=== PATIENT | female | born 1990 | race Caucasian/White ===

== ENCOUNTER 2017-05-28 09:32 | Inpatient (IN) | payer OTHER ==
[2017-05-28] MEDS ORDERED: Ringers Lactate 1,000 ML IV PRN (11:04)
[2017-05-28] MEDS ORDERED: NA CIT/CITRIC AC 30 ML ORAL UDC PO ONE (11:06)
[2017-05-28 11:35] VITALS: BMI 37.3
[2017-05-28 11:39] LABS: RPR Titer ND
[2017-05-28 11:41] LABS: Urine Appearance CLEAR; Urine Bilirubin NEGATIVE (NEG); Urine Blood NEGATIVE (NEG); Urine Color YELLOW; Urine Glucose NEGATIVE (NEG); Urine Protein NEGATIVE (NEG); Urine Specific Gravity 1.015 (1.005-1.030)
[2017-05-28 11:49] LABS: Absolute Lymphocytes (CBC) 1.8 K/uL (0.7-4.9); Absolute Monocytes 0.4 K/uL (0.1-1.3); Absolute Neutrophil 5.4 K/uL (1.8-8.0); Basophils % 0.6 % (0-1.3); Eosinophils % 0.9 % (0-4.4); Hematocrit 37.5 % (36.0-45.0); Lymphocytes % 22.8 % (15.3-44.8); MCH 28.7 pg (27.0-35.0); MCV 84.7 fL (80-100); Monocytes % 5.3 % (3.3-12.3); RBC Red Blood Cell Count 4.42 M/uL (3.86-4.86); Urine Microscopic Reflex ORDER UMIC
[2017-05-28] MEDS ORDERED: CEFAZOLIN 2 GM in NA CHLORIDE 0.9% 100 ML IVPB SCH (12:00)
[2017-05-28] MEDS ORDERED: Ringers Lactate 1,000 ML IV SCH (12:00)
[2017-05-28] MEDS ORDERED: METOCLOPRAMIDE 10 MG/2mL INJ IV SCH (12:00)
[2017-05-28] MEDS ORDERED: FAMOTIDINE 20 MG/2 ML VIAL IV SCH (12:00)
[2017-05-28 12:31] LABS: Urine Bacteria <20 /HPF (<20); Urine Culture Reflex Order NOT NEEDED; Urine Mucus SLIGHT /HPF (NONE SEEN); Urine RBC <5 /HPF (NONE SEEN)
[2017-05-28] MEDS ORDERED: CEFAZOLIN/SWI 2gm 2 GM/20 ML SYR ONE (13:11)
[2017-05-28] MEDS ORDERED: METHYLERGONOVINE 0.2MG/ML AMP IM ONE (13:11)
[2017-05-28] MEDS ORDERED: CARBOPROST TROME 250 MCG/ML IM ONE (13:11)
[2017-05-28] MEDS ORDERED: OXYTOCIN 10 UNIT/ML ML IV ONE ×2 (13:16→14:05)
[2017-05-28] MEDS ORDERED: MORPHINE SULFATE/PF 1 MG/ML (10 ML AMP) ONE (13:16)
[2017-05-28] MEDS ORDERED: EPHEDRINE SULF 50 MG/5 ML SYR ONE (13:33)
[2017-05-28] MEDS ORDERED: DIPHENHYDRAMINE 50 MG/ML VIAL IV PRN ×2 (14:48→16:37)
[2017-05-28] MEDS ORDERED: ONDANSETRON 4 MG/2 ML VIAL IV PRN ×2 (14:49→14:57)
[2017-05-28] MEDS ORDERED: ONDANSETRON 4 MG (ODT) TAB PO PRN (14:57)
[2017-05-28] MEDS ORDERED: ACETAMINOPHEN 500 MG TAB PO PRN (14:57)
[2017-05-28] MEDS ORDERED: DIPHENHYDRAMINE 25 MG TAB/CAP PO PRN (14:57)
[2017-05-28] MEDS ORDERED: Oxycodone HCl/Acetaminophen 1 TAB TAB PO PRN ×2 (14:57)
[2017-05-28] MEDS ORDERED: BISACODYL 10 MG RECTAL SUPP RECT PRN (14:57)
[2017-05-28] MEDS ORDERED: KETOROLAC 30 MG/ML INJ IM PRN (14:57)
[2017-05-28] MEDS ORDERED: OXYTOCIN/LR 20 UNIT/1,000 ML BAG IV SCH (15:00)
[2017-05-28] MEDS ORDERED: D5LR 1,000 ML with OXYTOCIN 20 UNIT IV SCH ×2 (15:00)
--- NOTE | 2017-05-28 16:12 | PREOPHP ---
Date of Admission: 05/28/2017 A 26-year-old 3, para 1, 38 weeks and 5 days. Scheduled for repeat on Sunday-48 hours or less from now, came in with contractions every 3-6 minutes. Cervix has changed from 1.5 to 2 cm. Baby looks good. Preparations are being made to proceed with a at this time since s he appears to be in early labor. We have already gone over with the patient numerous times about pro cedure, infection, blood loss, anesthetic complications, injury to bladder, bowel, ureter, postoperat adam complications, clots in legs, pneumonia. The patient knows fully well that this does not [place] all the possible problems that could occur during or following surgery. Paternal grandfather wit h hypertension and cancer, site unknown. Diabetes in the same grandfather. The patient has had surg alena with her arm, in 2013, gallbladder surgery in 2013. She was a smoker and says she has quit during her . Physical Examination: Unremarkable. Heart and lungs: Basically clear. Breasts: Not examined. Abdomen: Soft, but regan. Extremities: Clear. Pelvic: As stated, 2 cm. We will proceed with section during the next hour and a half to 2 hours. KOURTNEY/MERA Voice ID: [id number]
[2017-05-28] MEDS ORDERED: Ringers Lactate 1,000 ML IV ONE (16:22)
[2017-05-28] MEDS ORDERED: DIPHENHYDRAMINE 50 MG/ML VIAL ONE (16:22)
[2017-05-28] MEDS ORDERED: CEFAZOLIN/SWI 2gm 2 GM/20 ML SYR IVP ONE (22:00)
[2017-05-28] MEDS: KETOROLAC 30 MG/ML INJ IV PRN (23:10)
[2017-05-29] MEDS: KETOROLAC 30 MG/ML INJ IV PRN (08:38)
[2017-05-29] MEDS ORDERED: MAGNESIUM HYDROXIDE 8% 30 ML PO PRN (14:57)
[2017-05-29] MEDS: IBUPROFEN 400 MG TAB PO PRN (20:46)
[2017-05-29 23:07] LABS: RPR (Rapid Plasma Reagin) NON-REACT (NON-REACT)
[2017-05-30 02:09] LABS: HBsAG Nonreactive (Nonreactive)
[2017-05-30] MEDS: IBUPROFEN 400 MG TAB PO PRN (04:53)
[2017-05-30] MEDS ORDERED: MEASLES,MUMPS,RUBELLA VAC 0.5ML SQVAC ONE (08:37)
[2017-05-30 09:19] VITALS: BP 121/81; TEMP 96.6
--- NOTE | 2017-05-31 05:47 | DS ---
Date of Discharge: 05/30/2017 A 26-year-old, 3, para 1, AB1, 38 weeks 5 days, scheduled for section came in early labor. Subsequently went to surgery, repeat section under spinal block anesthesia with marilee hernandez of an estimated 7- to 8-pound female. Outlet forceps used for delivery. Apgars 8 and 9. Signi ficant bleeding from the left side of the uterine incision. This was sutured with numerous figure-of -eight stitches during the procedure. Estimated total blood loss was 1500 cc. However, postoperativ e hematocrit only went from 37-33, so it was probably less than the amount estimated. Postoperativel y, afebrile, ambulating and voiding. Lochia is normal, will be dismissed later today to report back to my office next week for staple removal, to report any temperature elevation of [address], severe pain, heavy bleeding, or any other type of abnormalities. Dismissed with tramadol for an algesia, although if she prefer she will take Motrin since she knows narcotics go through the breast milk. She is rubella nonimmune and is offered rubella immunization. No post spinal block problems. Final Diagnoses: Term intrauterine 38 weeks 5 days, repeat section in labor, now dismissed. KOURTNEY/MERA Voice ID: [id number] Report ID: [id number]
--- NOTE | 2017-06-04 17:49 | OP ---
Surgeon: Mark Jensen MD A 26-year-old 3, para 1, AB1, 38 weeks 5 days, came in labor, taken to surgery, spinal block anesthesia. Time-out was performed. Prepping and draping in the usual sterile manner. Incision was made over the previous incision site carried to fascia. The fascia was incised. Incision was rupert ed transversely bilaterally. Anterior fascial plane was developed with both blunt and sharp dissecti on. The underlying rectus muscle was . The perineum was elevated and entered. Low transve rse uterine incision was created. A low outlet forceps was used to deliver 7.5 pound estimated weigh t female Apgars 8 and 9. Noted to have arterial bleeding from the left side of the incision. This w as sutured with 4-5 [id number] stitches with 1 chromic. The incision was closed in the routine running locked manner with 1 chromic. Estimated blood loss 1500 cc. The uterus was replaced into th e peritoneal cavity. Gutters cleared of clot and blood. No further bleeding was seen. Fascia was c losed with 1 Vicryl after the muscles had been reapproximated with 0 Vicryl. The subcutaneous tissue s were closed with 2-0 plain absorbable peter and then metal peter. The patient had been given 2 g of Ancef. Tolerated all procedures well. She was transferred back to her room in good condition. Final Diagnoses: Intrauterine gestation, 38 weeks 5 days, repeat section in labor. KOURTNEY/MERA Voice ID: [id number] Report ID: [id number]
== END 2017-05-30 08:50 | disposition home or self-care (01) | DRG 766 ==
LOC: L&D 09:32 → 2ND-WC 11:12
PROVIDERS: ADMIT Specialist; ATTEND Specialist
PROC: 10D00Z1 Extraction of Products of Conception, Low, Open Approach (ICD-10-PCS; principal; 2017-05-28 13:00)
DX: O34.211 Maternal care for low transverse scar from previous cesarean delivery (principal); Z3A.38 38 weeks gestation of pregnancy; Z37.0 Single live birth
CPT/HCPCS: 36415; 81003; 81015; 85014; 85025; 85730; 86592; 86900; 86901; 87340; 88305; 88307; 90707; 99218; J0690; J2210; J2405; J2590; J2765

== ENCOUNTER 2018-12-01 18:21 | Emergency (ER) | payer OTHER ==
--- NOTE | 2018-12-01 19:28 | ER ---
Nurse's Notes [facility] Name: Kyra Dave Age: 28 yrs Sex: Female : 1990 Arrival Date: 12/01/2018 Time: 18:24 Bed 23 Private MD: Diagnosis: Acute pharyngitis Presentation: 12/01 18:26 Presenting complaint: Patient states: Fever, chills, sore throat, and body aches since aj1 yesterday. TMax 104. Patient reports that she took Tylenol 1 hour ago. Denies N/V/D. Transition of care: patient was not received from another setting of care. Onset of symptoms was November 30, 2018. Risk Assessment: Do you want to hurt yourself or someone else? Patient reports no desire to harm self or others. Initial Sepsis Screen: Does the patient meet any 2 criteria? No. Patient's initial sepsis screen is negative. Does the patient have a suspected source of infection? Yes: Other: fever. Care prior to arrival: None. 18:26 Method Of Arrival: Ambulatory aj 18:26 Acuity: BISMARK 4 aj1 Triage Assessment: 18:28 General: Appears in no apparent distress. uncomfortable, Behavior is calm, cooperative, aj1 appropriate for age. Pain: Pain currently is 7 out of 10 on a pain scale. EENT: Reports difficulty swallowing sore throat, ear pain. Neuro: Level of Consciousness is awake, alert, obeys commands. Cardiovascular: Patient's skin is warm and dry. Respiratory: Airway is patent Respiratory effort is even, unlabored, Respiratory pattern is regular, symmetrical. 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 - Social history:: Smoking status: Patient uses tobacco products, smokes one-half pack cigarettes per day. - Ebola Screening: : Patient denies travel to an Ebola-affected area in the 21 days before illness onset. Screenin:45 Abuse screen: Denies threats or abuse. Nutritional screening: No deficits noted. tr5 Tuberculosis screening: No symptoms or risk factors identified. Fall Risk None identified. Assessment: 18:45 General: Appears in no apparent distress. Behavior is calm, cooperative, appropriate tr5 for age. Pain: Complains of pain in mouth. Neuro: Level of Consciousness is awake, alert, obeys commands, Oriented to person, place, time, Extension Educator are equal bilaterally Moves all extremities. Cardiovascular: Heart tones present. Respiratory: Airway is patent Respiratory effort is even, unlabored, Respiratory pattern is regular, symmetrical, Breath sounds are clear. GI: No signs and/or symptoms were reported involving the gastrointestinal system. : No signs and/or symptoms were reported regarding the genitourinary system. EENT: Throat is reddened. Derm: No signs and/or symptoms reported regarding the dermatologic system. Musculoskeletal: No signs and/or symptoms reported regarding the musculoskeletal system. Vital Signs: 18:28 BP 123 / 74; Pulse 98; Resp 18; Temp 98.9; Pulse Ox 100% on R/A; Weight 104.33 kg (R); aj1 Height 5 ft. 7 in. (170.18 cm) (R); 18:28 Body Mass Index 36.02 (104.33 kg, 170.18 cm) aj1 ED Course: 18:24 Patient arrived in ED. mr 18:25 Aleida Diaz FNP-C is [facility]. kb 18:25 Masoud Lee MD is Attending Physician. kb 18:27 Triage completed. aj1 18:28 Arm band placed on Patient placed in an exam room. aj1 18:44 Lazarus Lindquist RN is Primary Nurse. tr5 18:45 Call light in reach. Side rails up X 1. tr5 19:59 No provider procedures requiring assistance completed. Patient did not have IV access tr5 during this emergency room visit. Administered Medications: No medications were administered Outcome: 19:28 Discharge ordered by . kb 19:59 Discharged to home ambulatory. tr5 19:59 Condition: stable 19:59 Discharge instructions given to patient, family, Instructed on discharge instructions, follow up and referral plans. medication usage, Demonstrated understanding of instructions, follow-up care, medications. 20:00 Patient left the ED. tr5 Signatures: Aleida Diaz FNP-C FNP-Sonia Olson RN RN chitra IvanNargis moy Tommie, RN RN tr5
--- NOTE | 2018-12-01 19:28 | EDPHYS ---
Physician Documentation [facility] Name: Kyra Dave Age: 28 yrs Sex: Female : 1990 Arrival Date: 12/01/2018 Time: 18:24 Bed 23 Private MD: ED Physician Masoud Lee HPI: 12/01 19:24 This 28 yrs old Female presents to ER via Ambulatory with complaints of Sore kb Throat, Fever, Ear Pain. 19:24 The patient presents with sore throat. The patient describes throat pain as constant. kb Onset: The symptoms/episode began/occurred yesterday. Severity of symptoms: At their worst the symptoms were mild, moderate, in the emergency department the symptoms are unchanged. Modifying factors: The symptoms are alleviated by nothing, the symptoms are aggravated by swallowing, Patient's oral intake status: limited fluid intake, limited food intake, Denies contact with similarly ill indivduals. Associated signs and symptoms: Pertinent positives: chills, earache, fever, flu-like symptoms, Sore throat. The patient has not experienced similar symptoms in the past. The patient has not recently seen a physician. 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 - Social history:: Smoking status: Patient uses tobacco products, smokes one-half pack cigarettes per day. - Ebola Screening: : Patient denies travel to an Ebola-affected area in the 21 days before illness onset. ROS: 19:21 Neck: Negative for injury, pain, and swelling, Cardiovascular: Negative for chest pain, kb palpitations, and edema, Respiratory: Negative for shortness of breath, cough, wheezing, and pleuritic chest pain, Abdomen/GI: Negative for abdominal pain, nausea, vomiting, diarrhea, and constipation, Back: Negative for injury and pain, MS/Extremity: Negative for injury and deformity, Skin: Negative for injury, rash, and discoloration, Neuro: Negative for headache, weakness, numbness, tingling, and seizure. 19:21 Constitutional: Positive for body aches, chills, fatigue, fever, malaise. 19:21 ENT: Positive for sore throat. Exam: 19:23 Constitutional: This is a well developed, well nourished patient who is awake, alert, kb and in no acute distress. Head/Face: Normocephalic, atraumatic. Neck: Trachea midline, no thyromegaly or masses palpated, and no cervical lymphadenopathy. Supple, full range of motion without nuchal rigidity, or vertebral point tenderness. No Meningismus. Chest/axilla: Normal chest wall appearance and motion. Nontender with no deformity. No lesions are appreciated. Cardiovascular: Regular rate and rhythm with a normal S1 and S2. No gallops, murmurs, or rubs. Normal PMI, no JVD. No pulse deficits. Respiratory: Lungs have equal breath sounds bilaterally, clear to auscultation and percussion. No rales, rhonchi or wheezes noted. No increased work of breathing, no retractions or nasal flaring. Abdomen/GI: Soft, non-tender, with normal bowel sounds. No distension or tympany. No guarding or rebound. No evidence of tenderness throughout. Back: No spinal tenderness. No costovertebral tenderness. Full range of motion. Skin: Warm, dry with normal turgor. Normal color with no rashes, no lesions, and no evidence of cellulitis. MS/ Extremity: Pulses equal, no cyanosis. Neurovascular intact. Full, normal range of motion. Neuro: Awake and alert, GCS 15, oriented to person, place, time, and situation. Cranial nerves II-XII grossly intact. Motor strength 5/5 in all extremities. Sensory grossly intact. Cerebellar exam normal. Normal gait. 19:23 ENT: External ear(s): are unremarkable, Ear canal(s): are normal, TM's: are normal, Nose: is normal, Mouth: is normal, Posterior pharynx: Airway: normal, no evidence of obstruction, Tonsils: bilaterally enlarged, with erythema, with exudate, Uvula: normal, midline, swelling, that is moderate, erythema, that is mild, exudate, that is moderate. Vital Signs: 18:28 BP 123 / 74; Pulse 98; Resp 18; Temp 98.9; Pulse Ox 100% on R/A; Weight 104.33 kg (R); aj1 Height 5 ft. 7 in. (170.18 cm) (R); 18:28 Body Mass Index 36.02 (104.33 kg, 170.18 cm) aj1 MDM: 18:33 Patient medically screened. kb 19:20 Data reviewed: vital signs, nurses notes. Data interpreted: Pulse oximetry: on room air kb is 100 %. Interpretation: normal. Counseling: I had a detailed discussion with the patient and/or guardian regarding: the historical points, exam findings, and any diagnostic results supporting the discharge/admit diagnosis, lab results, the need for outpatient follow up, a family practitioner, to return to the emergency department if symptoms worsen or persist or if there are any questions or concerns that arise at home. ED course: Antibiotics prescribed based on exam findings . 12/01 18:26 Order name: Flu; Complete Time: 19:20 [facility] 12/01 18:26 Order name: Strep; Complete Time: 19:18 [facility] 12/01 19:14 Order name: Throat Culture EDMS Administered Medications: No medications were administered Disposition: 12/02 07:13 Co-signature as Attending Physician, Masoud Lee MD. rn Disposition: 12/01/18 19:28 Discharged to Home. Impression: Acute pharyngitis. - Condition is Stable. - Discharge Instructions: Pharyngitis, [id number], Sore Throat, [id number]. - Prescriptions for Augmentin 875- 125 mg Oral Tablet - take 1 tablet by ORAL route every 12 hours for 10 days; 20 tablet. - Medication Reconciliation Form, Thank You Letter, Antibiotic Education, Prescription Opioid Use form. - Follow up: Emergency Department; When: As needed; Reason: Worsening of condition. Follow up: Private Physician; When: 2 - 3 days; Reason: Recheck today's complaints, Continuance of care, Re-evaluation by your physician. Signatures: Dispatcher [employer] EDMS Aleida Diaz, ARIK RIDDLEP-Sonia Olson RN RN aj1 Masoud Lee MD MD rn Rodriguez, Tommie, RN RN tr5 Corrections: (The following items were deleted from the chart) 12/01 20:00 19:28 12/01/2018 19:28 Discharged to Home. Impression: Acute pharyngitis. Condition is tr5 Stable. Forms are Medication Reconciliation Form, Thank You Letter, Antibiotic Education, Prescription Opioid Use. Follow up: Emergency Department; When: As needed; Reason: Worsening of condition. Follow up: Private Physician; When: 2 - 3 days; Reason: Recheck today's complaints, Continuance of care, Re-evaluation by your physician. kb
[2018-12-01 20:04] VITALS: BP 123/74; TEMP 98.9; O2SAT 100
== END 2018-12-01 20:00 | disposition home or self-care (01) ==
LOC: ER 18:21
DX: J02.9 Acute pharyngitis, unspecified (principal); F17.210 Nicotine dependence, cigarettes, uncomplicated
CPT/HCPCS: 87070; 87081; 87804; 99281

== ENCOUNTER 2019-06-19 23:46 | Emergency (ER) | payer OTHER, SELFPAY ==
--- OUTSIDE RECORDS SUMMARY | 2019-06-19 23:48 | XMS REPORT ---
:1990 Author Organization [facility] t Address [address] [place] [address] Dr. Schwarz [address] [place] [id number] Care Team Providers Name Role Phone Unavailable Unavailable Unavailable Problems This patient has no known problems. Allergies, Adverse Reactions, Alerts This patient has no known allergies or adverse reactions. Medications This patient has no known medications. Procedures This patient has no known procedures. Results This patient has no known results.
[2019-06-20 00:59] LABS: Absolute Lymphocytes (CBC) 3.1 K/uL (0.7-4.9); Hematocrit 42.6 % (36.0-45.0); Lymphocytes % 35.1 % (15.3-44.8); RBC Red Blood Cell Count 5.17 M/uL (3.86-4.86)
[2019-06-20 01:00] LABS: Protime INR 0.93
[2019-06-20 02:02] LABS: BUN Blood Urea Nitrogen 9 mg/dL (7-18); Bicarbonate 23 mmol/L (21-32); Glucose Level 108 mg/dL (74-106); Potassium 3.8 mmol/L (3.5-5.1); Sodium Level 143 mmol/L (136-145)
[2019-06-20] MEDS ORDERED: TETANUS & DIPHTHERIA TOX,ADULT 0.5 ML VIAL ONE (02:12)
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
[2019-06-20 02:52] VITALS: TEMP 99
[2019-06-20 03:00] VITALS: BP 127/77; O2SAT 98
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
== END 2019-06-20 02:43 | disposition home or self-care (01) ==
LOC: ER 23:46
DX: Z04.71 Encounter for examination and observation following alleged adult physical abuse (principal); F17.210 Nicotine dependence, cigarettes, uncomplicated
CPT/HCPCS: 36415; 70450; 70486; 70491; 76377; 80048; 85025; 85610; 86850; 86900; 86901; 90471; 90714; 96360; 99284; Q9967

== ENCOUNTER 2019-08-14 13:56 | Emergency (ER) | payer SELFPAY ==
--- OUTSIDE RECORDS SUMMARY | 2019-08-14 15:46 | XMS REPORT | Summary of Care ---
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 [address] [facility] [id number] [place] [id number] Reason for Visit Reason Comments Ankle Pain Auth/Cert Status Reason Specialty Diagnoses / Referred By Referred To Procedures Contact Contact Emergency Medicine [facility] Em ergency Dept [address] [place] [address] Fax: Encounter Details Date Type Department Care Team Description 08/06/2019 Emergency ADC-Emergency Chica Cardenas G, Acute rig ht ankle pain (Primary Dx); 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 naproxen sodium Take 1 tablet 30 tablet 0 03/11/2018 08/06/19 Discontinued (ANAPROX DS) 550 mg by mouth 2 20 tabletIndications: (two) times Influenza-like daily with illness meals. chlorpheniramine 4 mg Take 1 tablet 30 tablet 0 03/11/201802/24 Discontinued tabletIndications: by mouth every 20 Influenza-like 6 (six) hours illness as needed for Allergies or Runny nose. [id number] As directed on 2 Bottle 0 03/11/2018 Discontinued -Guaifen (TYLENOL bottle. 20 COLD AND FLU SEVERE) Daytime and [id number] mg/15 mL nighttime LiqdIndications: combo pack Influenza-like illness ondansetron 4 mg Take 1 tablet 20 tablet 0 03/11/2018 08/06/19 Discontinued disintegrating by mouth every 20 tabletIndications: 8 (eight) Influenza-like hours as illness needed for Nausea and Vomiting (N/V). oxymetazoline (AFRIN, Use 1 [place] in 1 Bottle 0 03/11/2018 Discontinued OXYMETAZOLINE,) 0.05 each nostril 2 20 % nasal (two) times sprayIndications: daily. Influenza-like illness documented as of this encounter (statuses as of 08/06/2019) Active Problems No known active problemsdocumented as of this encounter (statuses as of 08/06/2019) Social History Tobacco Use Types Packs/Day Years Used Date Never Assessed Sex Assigned at Date Recorded Not on file Job Start Date Occupation Industry Not on file Not on file Not on file Travel History Travel Start Travel End No recent travel history available. COVID-19 Exposure Response Date Recorded In the last month, have you been in contact with No / Unsure 08/06/2019 8:42 PM CDT someone who was confirmed or suspected to have Coronavirus / COVID-19? documented as of this encounter Last Filed Vital Signs Vital Sign Reading Time Taken Comments Blood Pressure 139/66 08/06/2019 8:43 PM CDT Pulse 87 08/06/2019 8:43 PM CDT Temperature 36.6 C (97.8 F) 08/06/2019 8:43 PM CDT Respiratory Rate 18 08/06/2019 8:43 PM CDT Oxygen Saturation 99% 08/06/2019 8:43 PM CDT Inhaled Oxygen Concentration - - Weight 106.6 kg (235 lb) 08/06/2019 8:43 PM CDT Height 170.2 cm (5' 7") 08/06/2019 8:43 PM CDT Body Mass Index 36.81 08/06/2019 8:43 PM CDT documented in this encounter Discharge Instructions Chica Duran NP - 08/06/2019Diagnosis: Ankle sprain Prescription for Lodine sent to your [facility] pharmacy RICE Rest your ankle as much as possible Use ice / cold pack intermittently for the first 72 hours then may apply heat Use compression ( ortho boot) when weight bearing Elevate as much as possible Follow up with ortho as needed documented in this encounter Plan of Treatment Name Type Priority Associated Diagnoses Date/Ti me XR ANKLE 3+ VW RIGHT IMAGING STAT Acute right ankle pa in 08/06/2019 9:02 PM CDT Health Maintenance Due Date Last Done Comments VARICELLA VACCINES (1 of 2 - 10/28/1992 2-dose childhood series) DTaP,Tdap,and Td Vaccines (1 - 10/28/2002 Tdap) Depression Screening 2003 PAP SMEAR 10/28/2012 INFLUENZA VACCINE (#1) 2019 PNEUMOCOCCAL 0-64 YEARS COMBINED Aged Out No longer eligible based on SERIES patient's age to complete this topic documented as of this encounter Procedures Procedure Name Priority Date/Time Associated Diagnosis Comme nts XR ANKLE 3+ VW RIGHT STAT 08/06/2019 9:02 PM CDT Acute rig ht ankle pain Procedure Note - [facility], Radia nt Results Inft User - 08/06/2019 9:42 PM CDT EXAM: XR ANKLE 3+ VW RIGHT HISTORY: r/o fracture COMPARISON: None. FINDINGS: Radiographs of the right ank le demonstrate no acute fractures or dislocations. The ankle mort ise is intact. The soft tissues are unremarkable. IMPRESSION No acute bony abnormality. Preliminary Report Dictated by Resident: Katia Herrera NOTICE OF PRIVACY PRACTICES Routine 08/06/2019 8:36 PM CDT CONSENT/REFUSAL FOR DIAGNOSIS AND TREATMENT Routine 08/06/2019 8:36 PM CDT documented in this encounter Results Not on filedocumented in this encounter Visit Diagnoses Diagnosis Acute right ankle pain - Primary Sprain of right ankle, unspecified ligam ent, initial encounter documented in this encounter Insurance Payer Benefit Plan / Subscriber ID Effective Phone Address T ype Group Dates MEDICAID MEDICAID PENDING 2019-[address] [place] [address] (Work) documented as of this encounter
--- OUTSIDE RECORDS SUMMARY | 2019-08-14 15:46 | XMS REPORT | Continuity of Care Document ---
:1990 Author Organization [facility] t Address [address] [place] [address] Care Team Providers Name Role Phone Mary Cardenas NP Attending Clinician Problems This patient has no known problems. Allergies, Adverse Reactions, Alerts This patient has no known allergies or adverse reactions. Medications This patient has no known medications. Procedures This patient has no known procedures. Encounters Start End Encounter Admission Attending Care Care Encounter Source Date/Time Date/Time Type Type Clinicians Facility Department ID 2019-08-06 2019-08-06 Emergency Theresa, [facility] [id number] 20:47:02 22:28:00 Chica Unger [id number] [place] [id number] [place] [id number] 2019-06-21 2019-06-21 Emergency E [facility] [id number] [facility] 12:28:00 12:28:00 Results This patient has no known results.
--- NOTE | 2019-08-14 16:16 | ER ---
Nurse's Notes [facility] Name: Kyra Dave Age: 28 yrs Sex: Female : 1990 Arrival Date: 08/14/2019 Time: 14:00 Bed 11 Private MD: Margaret Wray K Diagnosis: Nondisplaced fracture of proximal phalanx of left great toe Presentation: 08/13 14:24 Chief complaint: Patient states: Slipped and fell getting out the shower last night. ca1 C/O of pain on L big toe and a little deformity on L big toe. Coronavirus screen: Proceed with normal triage. Patient denies a cough. Patient denies shortness of breath or difficulty breathing. Patient denies measured and/or subjective temperature greater than 100.4F prior to today's visit. Patient denies travel on a cruise ship or to a country the [facility] currently lists as an affected area. Patient denies contact with known and/or suspected case of COVID-19. Ebola Screen: Patient negative for fever greater than or equal to 101.5 degrees Fahrenheit, and additional compatible Ebola Virus Disease symptoms Patient denies exposure to infectious person. Patient denies travel to an Ebola-affected area in the 21 days before illness onset. No symptoms or risks identified at this time. Initial Sepsis Screen: Does the patient meet any 2 criteria? No. Patient's initial sepsis screen is negative. Does the patient have a suspected source of infection? No. Patient's initial sepsis screen is negative. Risk Assessment: Do you want to hurt yourself or someone else? Patient reports no desire to harm self or others. Onset of symptoms was August 14, 2019. 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 - Social history:: Smoking status: Patient reports the use of cigarette tobacco products, smokes one-half pack cigarettes per day. Screenin:44 Abuse screen: Denies threats or abuse. Denies injuries from another. Nutritional ss screening: No deficits noted. Tuberculosis screening: Never had TB. Fall Risk None identified. Assessment: 14:44 General: Appears in no apparent distress. comfortable, Behavior is calm, cooperative. ss Pain: Complains of pain in right first toe Pain currently is 8 out of 10 on a pain scale. Quality of pain is described as aching, tender, throbbing, Pain began last night Is continuous. Neuro: Level of Consciousness is awake, alert, obeys commands, Oriented to person, place, time, situation. Cardiovascular: Capillary refill < 3 seconds is brisk in bilateral fingers. Respiratory: Airway is patent Respiratory effort is even, unlabored, Respiratory pattern is regular, symmetrical. GI: Patient currently denies diarrhea, nausea, vomiting. EENT: Oral mucosa is moist. Derm: Skin is intact, is healthy with good turgor, Skin is pink, warm \T\ dry. normal. Derm: Bruising that is dark purple, on right first toe. Musculoskeletal: Circulation, motion, and sensation intact. Range of motion: intact in all extremities, Swelling present in right first toe. Vital Signs: 14:24 BP 143 / 99; Pulse 82; Resp 15 S; Temp 97.5(TE); Pulse Ox 97% on R/A; Weight 106.59 kg ca1 (R); Height 5 ft. 7 in. (170.18 cm) (R); Pain 8/10; 14:24 Body Mass Index 36.80 (106.59 kg, 170.18 cm) ca1 ED Course: 14:00 Patient arrived in ED. mr 14:00 Margaret Wray MD is Private Physician. mr 14:27 Triage completed. ca1 14:27 Arm band placed on right wrist. ca1 14:39 Ale[facility] Diaz [facility]C [facility] kb 14:39 Dg Ruiz MD is Attending Physician. kb 14:43 Kaelyn Leonardo RN is Primary Nurse. ss 14:44 Patient has correct armband on for positive identification. Bed in low position. Call ss light in reach. 16:36 No provider procedures requiring assistance completed. Patient did not have IV access ss during this emergency room visit. Ortho shoe applied to right foot. Administered Medications: No medications were administered Outcome: 16:15 Discharge ordered by . kb 16:36 Discharged to home ambulatory. ss 16:36 Condition: good 16:36 Discharge instructions given to patient, Instructed on discharge instructions, follow up and referral plans. medication usage, Demonstrated understanding of instructions, follow-up care, medications. 16:37 Patient left the ED. Signatures: Aleida Diaz, DAYANA-C CLINICAL REHABILITATION AIDE-Nargis Shepard mr JordenKaelyn, RN RN ss Isamar Anderson RN RN ca1
--- NOTE | 2019-08-14 16:16 | EDPHYS ---
Physician Documentation [facility] Name: Kyra Dave Age: 28 yrs Sex: Female : 1990 Arrival Date: 08/14/2019 Time: 14:00 Bed 11 Private MD: Margaret Wray K ED Physician Dg Ruiz HPI: 08/13 16:10 This 28 yrs old Female presents to ER via Ambulatory with complaints of Foot kb Injury. 16:11 The patient presents with a deformity, an injury, pain, that is acute, swelling, kb tenderness. The complaints affect the right first toe. Context: The problem was sustained at home, resulted from the patient kicking, shower door, the patient can fully bear weight, the patient is able to ambulate. Onset: The symptoms/episode began/occurred yesterday. Modifying factors: The symptoms are alleviated by nothing, the symptoms are aggravated by nothing. Associated signs and symptoms: Pertinent positives: swelling, Pertinent negatives: calf tenderness, fever, nausea, numbness, rash, tingling, vomiting, warmth, weakness. Severity of symptoms: At their worst the symptoms were mild, in the emergency department the symptoms are unchanged. The patient has not experienced similar symptoms in the past. The patient has not recently seen a physician. 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 - Social history:: Smoking status: Patient reports the use of cigarette tobacco products, smokes one-half pack cigarettes per day. ROS: 16:09 Constitutional: Negative for fever, chills, and weight loss, Cardiovascular: Negative kb for chest pain, palpitations, and edema, Respiratory: Negative for shortness of breath, cough, wheezing, and pleuritic chest pain, Abdomen/GI: Negative for abdominal pain, nausea, vomiting, diarrhea, and constipation, Back: Negative for injury and pain, Skin: Negative for injury, rash, and discoloration, Neuro: Negative for headache, weakness, numbness, tingling, and seizure. 16:09 MS/extremity: Positive for injury or acute deformity, ecchymosis, pain, swelling, tenderness, of the right first toe. Exam: 16:09 Constitutional: This is a well developed, well nourished patient who is awake, alert, kb and in no acute distress. Head/Face: Normocephalic, atraumatic. Chest/axilla: Normal chest wall appearance and motion. Nontender with no deformity. No lesions are appreciated. Cardiovascular: Regular rate and rhythm with a normal S1 and S2. No gallops, murmurs, or rubs. Normal PMI, no JVD. No pulse deficits. Respiratory: Lungs have equal breath sounds bilaterally, clear to auscultation and percussion. No rales, rhonchi or wheezes noted. No increased work of breathing, no retractions or nasal flaring. Abdomen/GI: Soft, non-tender, with normal bowel sounds. No distension or tympany. No guarding or rebound. No evidence of tenderness throughout. Skin: Warm, dry with normal turgor. Normal color with no rashes, no lesions, and no evidence of cellulitis. Neuro: Awake and alert, GCS 15, oriented to person, place, time, and situation. Cranial nerves II-XII grossly intact. Motor strength 5/5 in all extremities. Sensory grossly intact. Cerebellar exam normal. Normal gait. 16:09 Musculoskeletal/extremity: Extremities: grossly normal except: noted in the right first toe: ecchymosis, pain, swelling, tenderness, ROM: limited active range of motion due to pain, Circulation is intact in all extremities. Sensation intact. Weight bearing: able to fully bear weight. Vital Signs: 14:24 BP 143 / 99; Pulse 82; Resp 15 S; Temp 97.5(TE); Pulse Ox 97% on R/A; Weight 106.59 kg ca1 (R); Height 5 ft. 7 in. (170.18 cm) (R); Pain 8/10; 14:24 Body Mass Index 36.80 (106.59 kg, 170.18 cm) ca1 MDM: 14:39 Patient medically screened. kb 16:09 Data reviewed: vital signs, nurses notes. Data interpreted: Pulse oximetry: on room air kb is 97 %. Interpretation: normal. Counseling: I had a detailed discussion with the patient and/or guardian regarding: the historical points, exam findings, and any diagnostic results supporting the discharge/admit diagnosis, radiology results, the need for outpatient follow up, a family practitioner, a orthopedic surgeon, to return to the emergency department if symptoms worsen or persist or if there are any questions or concerns that arise at home. 08/13 14:29 Order name: Foot Left 3 View XRAY ca1 08/13 16:14 Order name: Post-op shoe; Complete Time: 16:36 kb Administered Medications: No medications were administered Disposition: 08/14 15:55 Co-signature as Attending Physician, Dg Ruiz MD I agree with the assessment and kdr plan of care. Disposition: 08/14/19 16:15 Discharged to Home. Impression: Nondisplaced fracture of proximal phalanx of left great toe. - Condition is Stable. - Discharge Instructions: Toe Fracture, Urwh-de-Uebv. - Prescriptions for Ibuprofen 800 mg Oral Tablet - take 1 tablet by ORAL route every 8 hours As needed take with food; 30 tablet. - Medication Reconciliation Form, Thank You Letter, Antibiotic Education, Prescription Opioid Use form. - Follow up: Emergency Department; When: As needed; Reason: Worsening of condition. Follow up: Private Physician; When: 2 - 3 days; Reason: Recheck today's complaints, Continuance of care, Re-evaluation by your physician. Signatures: Dispatcher [employer] EDMS Aleida Diaz, BROOM BUILDER-C BROOM BUILDER-CkDg Agosto MD MD [facility] Kaelyn Leonardo RN RN ss Isamar Anderson RN RN ca1 Corrections: (The following items were deleted from the chart) 08/13 16:11 16:10 The patient presents with pain, duane zepeda 16:37 16:15 08/14/2019 16:15 Discharged to Home. Impression: Nondisplaced fracture of ss proximal phalanx of left great toe. Condition is Stable. Forms are Medication Reconciliation Form, Thank You Letter, Antibiotic Education, Prescription Opioid Use. Follow up: Emergency Department; When: As needed; Reason: Worsening of condition. Follow up: Private Physician; When: 2 - 3 days; Reason: Recheck today's complaints, Continuance of care, Re-evaluation by your physician. kb
--- NOTE | 2019-08-14 16:38 | RAD REPORT ---
EXAM DESCRIPTION: RAD - Foot Left 3 View - 08/14/2019 4:31 pm CLINICAL HISTORY: foot injury COMPARISON: FOOT W OBLIQUES dated 01/17/2011 FINDINGS: Transverse lucency is seen involving the base of the distal phalanx of the great toe with surrounding soft tissue swelling, compatible with nondisplaced fracture.
[2019-08-14 16:41] VITALS: BP 143/99; TEMP 97.5; O2SAT 97
== END 2019-08-14 16:37 | disposition home or self-care (01) ==
LOC: ER 13:56
DX: S92.415A Nondisplaced fracture of proximal phalanx of left great toe, initial encounter for closed fracture (principal); W18.2XXA Fall in (into) shower or empty bathtub, initial encounter; Y93.E1 Activity, personal bathing and showering; Y92.012 Bathroom of single-family (private) house as the place of occurrence of the external cause; F17.210 Nicotine dependence, cigarettes, uncomplicated
CPT/HCPCS: 99283

== ENCOUNTER 2020-03-02 09:13 | Emergency (ER) | payer SELFPAY ==
--- OUTSIDE RECORDS SUMMARY | 2020-03-02 10:20 | XMS REPORT | Summary of Care ---
:1990 Author Organization [facility] - Health Address [address] [place] [address] Care Team Providers Name Role Phone Margaret Wray Primary Care Provider Encounter Details Date Type Department Care Team Description 02/25/2020 Letter (Out) [facility] [employer] Message s Doctor Unassigned, No [address] [facility] [place] [address] [address] [facility] [phone] [place] [address] Allergies No Known Allergiesdocumented as of this encounter (statuses as of 02/25/2020) Medications No known medicationsdocumented as of this encounter (statuses as of 02/25/2020) Active Problems No known active problemsdocumented as of this encounter (statuses as of 02/25/2020) Social History Tobacco Use Types Packs/Day Years Used Date Never Assessed Sex Assigned at Date Recorded Not on file documented as of this encounter Last Filed Vital Signs Not on filedocumented in this encounter Plan of Treatment Health Maintenance Due Date Last Done Comments VARICELLA VACCINES (1 of 2 - 10/28/1992 2-dose childhood series) Depression Screening 2003 DTaP,Tdap,and Td Vaccines (1 - 10/28/2010 Tdap) PAP SMEAR 10/28/2012 INFLUENZA VACCINE (#1) 2019 PNEUMOCOCCAL 0-64 YEARS COMBINED Aged Out No longer eligible based on SERIES patient's age to complete this topic documented as of this encounter Results Not on filedocumented in this encounter
--- OUTSIDE RECORDS SUMMARY | 2020-03-02 10:20 | XMS REPORT | Continuity of Care Document ---
:1990 Author Organization [facility] t Address [address] [place] [address] Care Team Providers Name Role Phone Doctor Unassigned, Name Attending Clinician Unavailable Mary Cardenas NP Attending Clinician Problems This patient has no known problems. Allergies, Adverse Reactions, Alerts This patient has no known allergies or adverse reactions. Medications This patient has no known medications. Procedures This patient has no known procedures. Encounters Start End Encounter Admission Attending Care Care Encounter Source Date/Time Date/Time Type Type Clinicians Facility Department ID 2020-02-25 2020-02-25 Letter Doctor KIRT [id number] 00:00:00 00:00:00 (Out) UnassignedANÍBAL [id number] [place] [facility] [id number] 2019-08-06 2019-08-06 Emergency NICOLAS Cardenas [id number] 20:47:02 22:28:00 Chica Unger [id number] [place] [id number] [place] [id number] 2019-06-21 2019-06-21 Emergency E MHBL [facility]BL [id number] [facility]BL 12:28:00 12:28:00 Results This patient has no known results.
--- NOTE | 2020-03-02 10:49 | ER ---
Nurse's Notes [facility] Name: Kyra Dave Age: 29 yrs Sex: Female : 1990 Arrival Date: 03/02/2020 Time: 09:19 Bed Waiting Private MD: Diagnosis: Presentation: 03/02 09:47 Chief complaint: Patient states: cough that began this morning. Pt reports that her ss daughter recently had covid and she has been in quarantine. Denies fever. Covid negative on 02/19. Coronavirus screen: Client indicates they have traveled out of the [place] in the last 14 days. Ebola Screen: Patient denies exposure to infectious person. Patient denies travel to an Ebola-affected area in the 21 days before illness onset. Initial Sepsis Screen: Does the patient meet any 2 criteria? No. Patient's initial sepsis screen is negative. Does the patient have a suspected source of infection? No. Patient's initial sepsis screen is negative. Risk Assessment: Do you want to hurt yourself or someone else? Patient reports no desire to harm self or others. Onset of symptoms was March 02, 2020. 09:47 Method Of Arrival: Ambulatory ss 09:47 Acuity: BISMARK 4 ss Historical: - Allergies: 09:50 No Known Allergies; ss - PSHx: 09:50 Cholecystectomy; ; ss - Immunization history:: Adult Immunizations up to date. - Social history:: Smoking status: Patient denies any tobacco usage or history of. Assessment: 10:48 Reassessment: Told registration she is going to go to her doctors office. ss Vital Signs: 09:47 BP 132 / 52; Pulse 83; Resp 18; Temp 98.6(TE); Pulse Ox 98% on R/A; Weight 106.59 kg; ss Height 5 ft. 7 in. (170.18 cm); Pain 0/10; 09:47 Body Mass Index 36.81 (106.59 kg, 170.18 cm) ED Course: 09:19 Patient arrived in ED. am4 09:49 Triage completed. ss 09:50 Arm band placed on right wrist. ss 10:48 No provider procedures requiring assistance completed. Patient did not have IV access ss during this emergency room visit. Administered Medications: No medications were administered Outcome: 10:48 Eloped from waiting room. ss 10:49 Patient left the ED. ss Signatures: Kaelyn Leonardo, RN RN Ina Arboleda
[2020-03-02 10:59] VITALS: BP 132/52; TEMP 98.6; O2SAT 98
== END 2020-03-02 10:49 | disposition left against medical advice (07) ==
LOC: ER 09:13
DX: Z02.9 Encounter for administrative examinations, unspecified (principal)
CPT/HCPCS: 99281

== ENCOUNTER 2021-01-17 21:44 | Emergency (ER) | payer SELFPAY ==
--- OUTSIDE RECORDS SUMMARY | 2021-01-17 21:47 | XMS REPORT | Continuity of Care Document ---
:1990 Author Organization [facility] t Address [address] [place] [address] Care Team Providers Name Role Phone Doctor Unassigned, Name Attending Clinician Unavailable Mary Cardenas NP Attending Clinician ALBERTOJEREMIAS Attending Clinician Unavailable Problems This patient has no known problems. Allergies, Adverse Reactions, Alerts Allergy Allergy Status Severity Reaction(s) Onset Inactive Treating Comm ents Source Name Type Date Date Clinician NO KNOWN Drug Active [facility] Medications This patient has no known medications. Procedures This patient has no known procedures. Encounters Start End Encounter Admission Attending Care Care Encounter Source Date/Time Date/Time Type Type Clinicians Facility Department ID 2020-02-25 2020-02-25 Letter Doctor KIRT [id number] 00:00:00 00:00:00 (Out) UnassANÍBAL chandler [id number] [place] [facility] [id number] 2019-08-06 2019-08-06 Emergency Theresa [facility] [id number] 20:47:02 22:28:00 Chica Unger [id number] [place] [id number] [place] [id number] 2019-08-06 2019-08-06 Emergency X [facility] ERT [id number] [facility] 20:36:00 20:36:00 [facility] 2019-06-21 2019-06-21 Emergency E CRISTIANO DOMINGUE[facility] [address] [facility] 12:28:00 14:10:00 Results This patient has no known results.
[2021-01-17] MEDS ORDERED: MORPHINE 2 MG/ML SYR ONE (23:58)
[2021-01-17] MEDS ORDERED: ONDANSETRON 4 MG/2 ML VIAL ONE (23:58)
[2021-01-17] MEDS ORDERED: NA CHLORIDE 0.9% 1,000 ML ONE (23:59)
[2021-01-17] MEDS ORDERED: FAMOTIDINE 20 MG/2 ML VIAL IV ONE (23:59)
[2021-01-18] MEDS ORDERED: CIPROFLOXACIN 400mg IV 400 MG/200 ML BAG IV ONE (00:30)
[2021-01-18 00:37] LABS: Absolute Lymphocytes (CBC) 2.7 K/uL (0.7-4.9); Basophils % 0.6 % (0-1.3); Hematocrit 40.2 % (36.0-45.0); Lymphocytes % 29.7 % (15.3-44.8); MPV 8.5 fL (7.6-11.3); RBC Red Blood Cell Count 4.49 M/uL (3.86-4.86)
[2021-01-18 00:50] LABS: ALT/SGPT 48 U/L (12-78); AST/SGOT 16 U/L (15-37); Albumin 3.3 g/dL (3.4-5.0); Alkaline Phosphatase 76 U/L (45-117); BUN Blood Urea Nitrogen 6 mg/dL (7-18); Bicarbonate 28 mmol/L (21-32); Bilirubin Direct < 0.1 mg/dL (0-0.2); Bilirubin Total 0.2 mg/dL (0.2-1.0); Glucose Level 104 mg/dL (74-106); Lipase 78 U/L (73-393); Potassium 3.6 mmol/L (3.5-5.1); Protein, Total 7.7 g/dL (6.4-8.2); Sodium Level 141 mmol/L (136-145)
[2021-01-18 02:02] LABS: Urine Specific Gravity/Preg >1.030 (1.005-1.030)
--- NOTE | 2021-01-18 02:21 | ER ---
Nurse's Notes [facility] Name: Kyra Dave Age: 30 yrs Sex: Female : 1990 Arrival Date: 01/17/2021 Time: 21:48 Bed 7 Private MD: Diagnosis: Diarrhea, unspecified;Abdominal pain, Generalized;Left sided colitis-ascending, distal decending, sigmoid, transverse and proximal decending Presentation: 01/17 21:52 Chief complaint: Patient states: diarrhea x 3days. Coronavirus screen: Vaccine status: da3 Patient reports being unvaccinated. Ebola Screen: No symptoms or risks identified at this time. Initial Sepsis Screen: Does the patient meet any 2 criteria? No. Patient's initial sepsis screen is negative. Does the patient have a suspected source of infection? No. Patient's initial sepsis screen is negative. Risk Assessment: Do you want to hurt yourself or someone else? Patient reports no desire to harm self or others. Onset of symptoms was January 14, 2021 at 15:00. 21:52 Method Of Arrival: Ambulatory da3 21:52 Acuity: BISMARK 3 da3 Triage Assessment: 21:54 General: Appears in no apparent distress. comfortable, Behavior is calm, cooperative. da3 Pain: Pain currently is 7 out of 10 on a pain scale. GI: No deficits noted. 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 - Social history:: Smoking status: Reported history of juuling and/or vaping. - Family history:: not pertinent. Screenin/14 00:13 Abuse screen: Denies threats or abuse. Denies injuries from another. Nutritional tw5 screening: No deficits noted. Tuberculosis screening: No symptoms or risk factors identified. Fall Risk None identified. Assessment: 01/17 23:56 General: Reports " I have been having diarrhea since Sunday, but the pain started tw5 yesterday afternoon. It is only getting worse". Pain: Complains of pain in suprapubic area, left upper quadrant and left lower quadrant. 01/18 00:31 Reassessment: Patient states feeling better. Patient states symptoms have improved. tw5 Pain: Pain currently is 3 out of 10 on a pain scale. at worst was 10 out of 10 on a pain scale. GI: Abdomen is non-distended, obese, Bowel sounds present X 4 quads. Abdomen is tender to palpation in left upper quadrant and left lower quadrant " It is a sharp pain on the left side but on my lower abdomen it is more of an aching pain". 02:03 Reassessment: Patient and/or family updated on plan of care and expected duration. Pain tw5 level reassessed. Patient is alert, oriented x 3, equal unlabored respirations, skin warm/dry/pink. Patient states feeling better. Patient states symptoms have improved. Pain: Pain currently is 6 out of 10 on a pain scale. Vital Signs: 01/17 21:52 BP 144 / 96; Pulse 103; Resp 18; Temp 98.0; Pulse Ox 98% on R/A; Weight 113.4 kg; da3 Height 5 ft. 7 in. (170.18 cm); 01/18 00:13 BP 137 / 95; Pulse 76; Resp 18; Pulse Ox 98% ; Pain 9/10; tw5 00:31 BP 137 / 95; Pulse 87; Pulse Ox 96% ; Pain 3/10; tw5 02:03 BP 105 / 66; Pulse 67; Resp 18; Pulse Ox 98% on R/A; tw5 01/17 21:52 Body Mass Index 39.16 (113.40 kg, 170.18 cm) da3 ED Course: 01/17 21:48 Patient arrived in ED. wm 21:54 Triage completed. da3 21:54 Arm band placed on right wrist. da3 23:43 Zenon Sin MD is Attending Physician. [facility] 23:54 Kimmy Sosa is Primary Nurse. tw5 23:57 Assisted to bathroom. tw5 01/18 00:13 Patient has correct armband on for positive identification. Placed in gown. Bed in low tw5 position. Call light in reach. Side rails up X 1. Pulse ox on. NIBP on. Door closed. Noise minimized. Moved to private room. Warm blanket given. Verbal reassurance given. 00:13 Initial lab(s) drawn, by me, sent to lab. Urine collected: clean catch specimen, tw5 cloudy, Amount Voided: 50mL. Inserted saline lock: 20 gauge in right antecubital area, using aseptic technique. Blood collected. 00:14 CBC with Automated Diff Sent. 00:14 Basic Metabolic Panel Sent. 00:29 Basic Metabolic Panel Sent. 00: CBC with Diff Sent. 00: Urine Culture Sent. 00:30 Urine --Ancillary (enter results) Sent. tw 01:18 CT Abd/Pelvis - IV Contrast Only In Process Unspecified. EDMS 02:19 Fabby Magdaleno MD is Referral Physician. malou 02:35 No provider procedures requiring assistance completed. IV discontinued, No lp1 redness/swelling at site. Pressure dressing applied. Administered Medications: 00:15 Drug: NS 0.9% 1000 ml Route: IV; Rate: 1 bolus; Site: right antecubital; tw5 02:00 Follow up: IV Status: Completed infusion; IV Intake: 1000ml lp1 00:15 Drug: morphine 4 mg Route: IVP; Site: right antecubital; tw 00:33 Follow up: Response: No adverse reaction; Pain is decreased; RASS: Alert and Calm (0) tw 00:15 Drug: Zofran (Ondansetron) 4 mg Route: IVP; Site: right antecubital; 00:33 Follow up: Response: No adverse reaction 00:15 Drug: Pepcid (famotidine) 20 mg Route: IVP; Site: right antecubital; tw 00:33 Follow up: Response: No adverse reaction 00:31 Drug: Cipro (ciprofloxacin) 400 mg Volume: 200 ml; Route: IVPB; Infused Over: 60 mins; Site: right antecubital; 02:00 Follow up: IV Status: Completed infusion; IV Intake: 200ml lp1 02:36 Drug: Flagyl (metroNIDAZOLE) 500 mg Route: PO; lp1 02:36 Follow up: Response: Medication administered at discharge. lp1 Intake: 02:00 IV: 1000ml; Total: 1000ml. lp1 02:00 IV: 200ml; Total: 1200ml. lp1 Outcome: 02:20 Discharge ordered by . malou 02:36 Discharged to home ambulatory, with friend. lp1 02:36 Condition: good 02:36 Discharge instructions given to patient, Instructed on discharge instructions, follow up and referral plans. medication usage, Demonstrated understanding of instructions, follow-up care, medications, Prescriptions given X 5 02:36 Patient left the ED. lp1 Signatures: Dispatcher [employer] EDZenon Puri MD MD cha Pena, Laura, RN RN lp1 Nusrat Chung David RN RN da3 Kimmy Sosa tw5
--- NOTE | 2021-01-18 02:21 | EDPHYS ---
Physician Documentation [facility] Name: Kyra Dave Age: 30 yrs Sex: Female : 1990 Arrival Date: 01/17/2021 Time: 21:48 Bed 7 Private MD: ED Physician Zenon Sin HPI: 01/17 23:55 This 30 yrs old Female presents to ER via Ambulatory with complaints of malou Diarrhea, Left side rib pain. 23:55 The patient presents to the emergency department with diarrhea, abdominal pain, of the malou right upper quadrant and left upper quadrant. Onset: The symptoms/episode began/occurred 1 day(s) ago. Possible causes: unknown. The symptoms are aggravated by nothing. The symptoms are alleviated by nothing. Associated signs and symptoms: Pertinent positives: abdominal pain, diarrhea. Severity of symptoms: At their worst the symptoms were mild moderate in the emergency department the symptoms are unchanged. The patient has not experienced similar symptoms in the past. 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 - Social history:: Smoking status: Reported history of juuling and/or vaping. - Family history:: not pertinent. ROS: 23:55 Constitutional: Negative for fever, chills, and weight loss, Eyes: Negative for injury, malou pain, redness, and discharge, ENT: Negative for injury, pain, and discharge, Neck: Negative for injury, pain, and swelling, Cardiovascular: Negative for chest pain, palpitations, and edema, Respiratory: Negative for shortness of breath, cough, wheezing, and pleuritic chest pain, Back: Negative for injury and pain, : Negative for injury, bleeding, discharge, and swelling, MS/Extremity: Negative for injury and deformity, Skin: Negative for injury, rash, and discoloration, Neuro: Negative for headache, weakness, numbness, tingling, and seizure, Psych: Negative for depression, anxiety, suicide ideation, homicidal ideation, and hallucinations, Allergy/Immunology: Negative for hives, rash, and allergies, Endocrine: Negative for neck swelling, polydipsia, polyuria, polyphagia, and marked weight changes, Hematologic/Lymphatic: Negative for swollen nodes, abnormal bleeding, and unusual bruising. 23:55 Abdomen/GI: Positive for abdominal pain, diarrhea, of the right upper quadrant and left upper quadrant. Exam: 23:55 Constitutional: This is a well developed, well nourished patient who is awake, alert, malou and in no acute distress. Head/Face: Normocephalic, atraumatic. Eyes: Pupils equal round and reactive to light, extra-ocular motions intact. Lids and lashes normal. Conjunctiva and sclera are non-icteric and not injected. Cornea within normal limits. Periorbital areas with no swelling, redness, or edema. ENT: Nares patent. No nasal discharge, no septal abnormalities noted. Tympanic membranes are normal and external auditory canals are clear. Oropharynx with no redness, swelling, or masses, exudates, or evidence of obstruction, uvula midline. Mucous membranes moist. Neck: Trachea midline, no thyromegaly or masses palpated, and no cervical lymphadenopathy. Supple, full range of motion without nuchal rigidity, or vertebral point tenderness. No Meningismus. Chest/axilla: Normal chest wall appearance and motion. Nontender with no deformity. No lesions are appreciated. Cardiovascular: Regular rate and rhythm with a normal S1 and S2. No gallops, murmurs, or rubs. Normal PMI, no JVD. No pulse deficits. Respiratory: Lungs have equal breath sounds bilaterally, clear to auscultation and percussion. No rales, rhonchi or wheezes noted. No increased work of breathing, no retractions or nasal flaring. Back: No spinal tenderness. No costovertebral tenderness. Full range of motion. Skin: Warm, dry with normal turgor. Normal color with no rashes, no lesions, and no evidence of cellulitis. MS/ Extremity: Pulses equal, no cyanosis. Neurovascular intact. Full, normal range of motion. Neuro: Awake and alert, GCS 15, oriented to person, place, time, and situation. Cranial nerves II-XII grossly intact. Motor strength 5/5 in all extremities. Sensory grossly intact. Cerebellar exam normal. Normal gait. 23:55 Abdomen/GI: Inspection: abdomen appears normal, Bowel sounds: normal, Palpation: mild abdominal tenderness, in the right upper quadrant and left upper quadrant, Liver: no appreciated palpable abnormalities, Hernia: not appreciated. Vital Signs: 21:52 BP 144 / 96; Pulse 103; Resp 18; Temp 98.0; Pulse Ox 98% on R/A; Weight 113.4 kg; da3 Height 5 ft. 7 in. (170.18 cm); 01/18 00:13 BP 137 / 95; Pulse 76; Resp 18; Pulse Ox 98% ; Pain 9/10; tw5 00:31 BP 137 / 95; Pulse 87; Pulse Ox 96% ; Pain 3/10; tw5 02:03 BP 105 / 66; Pulse 67; Resp 18; Pulse Ox 98% on R/A; tw5 01/17 21:52 Body Mass Index 39.16 (113.40 kg, 170.18 cm) da3 MDM: 01/17 23:43 Patient medically screened. [facility] 23:58 Data reviewed: vital signs, nurses notes, lab test result(s), EKG, radiologic studies, [facility] CT scan, plain films. 01/17 23:54 Order name: Basic Metabolic Panel [facility] 01/17 23:54 Order name: CBC with Diff [facility] 01/17 23:54 Order name: Hepatic Function; Complete Time: 01:01 [facility] 01/17 23:54 Order name: Lipase; Complete Time: 01:01 [facility] 01/17 23:54 Order name: Urine Culture [facility] 01/17 23:54 Order name: CT Abd/Pelvis - IV Contrast Only [facility] 01/17 23:54 Order name: Basic Metabolic Panel; Complete Time: 01:01 [facility] 01/17 23:54 Order name: CBC with Automated Diff; Complete Time: 01:01 [facility] 01/18 00:26 Order name: Urine --Ancillary (enter results); Complete Time: 02:16 [facility] 01/17 23:54 Order name: IV Saline Lock; Complete Time: 00:29 [facility] 01/17 23:54 Order name: Labs collected and sent; Complete Time: 00:29 [facility] 01/17 23:54 Order name: Urine Dipstick-Ancillary (obtain specimen); Complete Time: 00:26 [facility] 01/17 23:54 Order name: Urine Test (obtain specimen); Complete Time: 00:26 [facility] Administered Medications: 01/18 00:15 Drug: NS 0.9% 1000 ml Route: IV; Rate: 1 bolus; Site: right antecubital; tw5 02:00 Follow up: IV Status: Completed infusion; IV Intake: 1000ml lp1 00:15 Drug: morphine 4 mg Route: IVP; Site: right antecubital; tw5 00:33 Follow up: Response: No adverse reaction; Pain is decreased; RASS: Alert and Calm (0) tw5 00:15 Drug: Zofran (Ondansetron) 4 mg Route: IVP; Site: right antecubital; tw5 00:33 Follow up: Response: No adverse reaction tw5 00:15 Drug: Pepcid (famotidine) 20 mg Route: IVP; Site: right antecubital; tw5 00:33 Follow up: Response: No adverse reaction tw5 00:31 Drug: Cipro (ciprofloxacin) 400 mg Volume: 200 ml; Route: IVPB; Infused Over: 60 mins; tw5 Site: right antecubital; 02:00 Follow up: IV Status: Completed infusion; IV Intake: 200ml lp1 02:36 Drug: Flagyl (metroNIDAZOLE) 500 mg Route: PO; lp1 02:36 Follow up: Response: Medication administered at discharge. lp1 Disposition Summary: 01/18/21 02:20 Discharge Ordered Location: Home malou Problem: new malou Symptoms: have improved malou Condition: Stable malou Diagnosis - Diarrhea, unspecified malou - Abdominal pain, Generalized malou - Left sided colitis - ascending, distal decending, sigmoid, transverse and proximal malou decending Followup: malou - With: Private Physician - When: 2 - 3 days - Reason: Recheck today's complaints, Continuance of care, Re-evaluation by your physician Followup: malou - With: - When: 2 - 3 days - Reason: Recheck today's complaints, Continuance of care, Re-evaluation by your physician Discharge Instructions: - Discharge Summary Sheet malou - Abdominal Pain, Adult malou - Diarrhea, Adult malou - Diarrhea, Adult, [id number] malou - Colitis malou Forms: - Medication Reconciliation Form malou - Thank You Letter malou - Antibiotic Education malou - Prescription Opioid Use malou - Work release form lp1 Prescriptions: - Flagyl 500 mg Oral Tablet - take 1 tablet by ORAL route every 6 hours for 10 days; 40 tablet; Refills: 0, malou Product Selection Permitted - Zofran 4 mg Oral Tablet - take 1 tablet by ORAL route every 12 hours As needed; 20 tablet; Refills: 0, malou Product Selection Permitted - Cipro 500 mg Oral Tablet - take 1 tablet by ORAL route every 12 hours for 5 days; 10 tablet; Refills: 0, [facility] Product Selection Permitted - dicyclomine 20 mg Oral Tablet - take 1 tablet by ORAL route 4 times per day; 28 tablet; Refills: 0, Product malou Selection Permitted - Tylenol-Codeine #3 300 mg-30 mg Oral - take 2 tablet by ORAL route every 4-6 hours; 15 tablet; Refills: 0, Product malou Selection Permitted Signatures: Dispatcher [employer] Zenon Leslie MD MD cha Pena, Laura RN RN lp1 Barrett Ackerman RN RN da3 Kimmy Sosa tw5
[2021-01-18] MEDS ORDERED: metroNIDAZOLE 500 MG TABLET ONE (02:34)
[2021-01-18 02:41] VITALS: TEMP 98
[2021-01-18 02:46] VITALS: BP 105/66; O2SAT 98
--- NOTE | 2021-01-18 12:40 | RAD REPORT ---
EXAM DESCRIPTION: CT - Abdomen Pelvis W Contrast - 01/18/2021 4:37 am CLINICAL HISTORY: 30 years Female ABD PAIN TECHNIQUE: CT of the abdomen and pelvis using intravenous contrast in the arterial and venous phases . All CT scans at this facility use dose modulation, iterative reconstruction, and/or weight based do sing when appropriate to reduce radiation dose to as low as reasonably achievable. COMPARISON: None. FINDINGS: Lower chest: Minimal bibasilar dependent atelectasis. Abdomen/Pelvis: Liver: No focal lesion. Gallbladder: Status post cholecystectomy. Pancreas: Within normal limits. Spleen: Within normal limits. Kidney: No stone or hydronephrosis. No focal lesion. Adrenal glands: Within normal limits. Vascular structures: Unremarkable. Bowel: Ascending colon, distal descending colon, sigmoid colon are collapsed with bowel wall thickeni ng. There is also mild bowel thickening of the transverse and proximal descending colon. No bowel dis tention. Appendix: Not seen. Peritoneum: No free fluid or free air. Lymph Nodes: No lymphadenopathy. Reproductive: Unremarkable. Urinary bladder: Decompressed with diffuse urinary bladder wall thickening. Osseous structures: Unremarkable. Soft tissues: Unremarkable. IMPRESSION: 1. Ascending colon, distal descending colon and sigmoid colon are collapsed with bowel w all thickening. There is also mild bowel thickening of the transverse and proximal descending colon. Correlate clinically for colitis. 2. Diffuse urinary bladder wall thickening which is probably due to under distention. Underlying cyst itis however not completely excluded. Electronically signed by: Herve Lanier MD 01/18/2021 1:56 AM FORENSIC ANTHROPOLOGIST Due to temporary technical issues with the PACS/Fluency reporting system, reports are being signed by the in house radiologist without review as a courtesy to ensure prompt reporting. The interpreting r adiologist is fully responsible for the content of the report.
== END 2021-01-18 02:36 | disposition home or self-care (01) ==
LOC: ER 21:44
DX: K51.50 Left sided colitis without complications (principal); R10.84 Generalized abdominal pain
CPT/HCPCS: 36415; 74177; 80048; 80076; 81025; 83690; 85025; 87086; 87088; 96365; 96375; 99284; J0744; J2270; J2405; J7030; Q9967

== ENCOUNTER 2022-09-03 15:49 | Emergency (ER) | payer OTHER, SELFPAY ==
--- OUTSIDE RECORDS SUMMARY | 2022-09-03 15:52 | XMS REPORT | Continuity of Care Document ---
:1990 Author Organization [facility] t Address [address] [facility] [address] [place] [address] Care Team Providers Name Role Phone Judy Bradley Primary Care Physician [phone] SHA JUAN Attending Clinician Unavailable HARIKA BOB Attending Clinician Unavailabl e LAB47 Attending Clinician Unavailable LAURENT SCHMIDT Attending Clinician Unavailable MD MIGUEL Attending Clinician Unavailable MALORIE CHOUDHARY Attending Clinician Unavailable DANO LIZARRAGA Attending Clinician Unavailable PIEDAD MARTIN Attending Clinician Unavailable KENDALL HOLDEN Attending Clinician Unavailable JUVENAL LICONA Attending Clinician Unavailable KRISTY CASTORENA Attending Clinician Unavailable Mireille Puri RN Attending Clinician Unavailable MONET TURNER Attending Clinician Unavailable Monet Turner PA-C Attending Clinician Unknown, Attending Attending Clinician Unavailable Doctor Unassigned, [place] Attending Clinician Unavailable AMPARO LORA Attending Clinician Unavailable Amparo Machado Attending Clinician Chica Cardenas NP Attending Clinician CRISTIANO DOMINGUEZ Attending Clinician Unavailable Payers Payer Name Policy Type Policy Number Effective Date Expiration Date Ted MATTA MP CVS 9 [id number] 2022 00:00:00 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 Problems Condition Condition Condition Status Onset Resolution Last Treating Co mments Source Name Details Category Date Date Treatment Clinician Date No known No known Disease Unive rs active active ity of problems problems [facility] Allergies, Adverse Reactions, Alerts Allergy Allergy Status Severity Reaction(s) Onset Inactive Treating Comm ents Source Name Type Date Date Clinician NO KNOWN Drug Active Univers ALLERGIE Class ity of S [facility] Social History Social Habit Start Date Stop Date Quantity Comments Source Gender identity 2022-03-08 Identifies as Harika Manzanares - 17:35:28 female gender External (finding) Sexual orientation 2022-03-08 Heterosexual Jostete Manzanares - 17:35:28 (finding) External History of tobacco Cigarette Smoker Harika Manzanares - use External Alcohol intake 2022-09-01 2022-09-01 .71 /d Harika juan - 00:00:00 00:00:00 External History of Social 2022-08-10 2022-08-10 Harika Manzanares - function 00:00:00 00:00:00 External Cigarettes smoked 2022-08-10 2022-08-10 Harika Manzanares - current (pack per 00:00:00 00:00:00 Externa l day) - Reported Cigarette 2022-08-10 2022-08-10 Harika Manzanares - pack-years 00:00:00 00:00:00 External Tobacco use and 2022-03-08 2022-03-08 Smokeless tobacco [place] Manzanares - exposure 00:00:00 00:00:00 non-user External Exposure to 2021-09-23 2021-10-03 Yes University of SARS-CoV-2 (event) 00:00:00 19:50:00 [facility] Sex Ass[birth year] At [birth year] F Harika ryan - 00:00:00 00:00:00 External Smoking Status Start Date Stop Date Source Tobacco smoking [facility] consumption unknown Medical Bran [facility] Ex-smoker 2022-08-10 00:00:00 2022-08-10 Harika Seybo ld - 00:00:00 External Never smoked tobacco Harika Shafferyb old - External Medications Ordered Filled Start Stop Current Ordering Indication Dosage Frequency Signature Comments Components Source Medication Medication Date Date Medication? Clinician (SIG) Name Name Methylpredn 2022- No 49 40mg Kelse y isolone 09-01 Seybold Acetate 16:15: 16:07 - (DEPO-MEDRO 00 :00 Externa L) 40 mg/mL l Methylpredn 2022- No 49 40mg 40 mg, Bruce sey isolone 09-01 Physician Seybol d Acetate 16:15: 16:07 Administer - (DEPO-MEDRO 00 :00 ed, ONCE, Ext mercedes L) 40 mg/mL 1 dose, On l 09/01/22 at 1115 Ibuprofen 2022- Yes [id number] 800mg [id number] Take 1 Harika (MOTRIN) 09-01 9107 [id number] tablet Se ybold 800 MG oral 00:00: 04:59 3D (800 mg - Tablet 00 :00 total) by Externa mouth l every 8 hours as needed for pain (left foot pain) Liraglutide 2022- No [id number] .6mg Inject 0.1 Harika -Weight 4-12 07-06 mL (0.6 mg Seybo ld Management 00:00: 00:00 total) - 18 MG/3ML 00 :00 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 l s Solution Pen-injecto r Semaglutide 2022- No [id number] .25mg Inject Harika -Weight 4-11 05-12 0.25 mg Seybold Management 00:00: 04:59 into the - 0.25 00 :00 skin once Externa MG/0.5ML a week l subcutaneou s Solution Auto-inject or Nitrofurant Yes [id number] 100mg Take 1 Harika oin Monohyd 3-13 capsule Seybo ld Macro 00:00: (100 mg - (Macrobid) 00 total) by Exte rna 100 MG oral mouth 2 l Capsule times daily Nitrofurant 2022- No [id number] 100mg Take 1 Harika oin Monohyd 3-13 04-11 capsule Seyb old Macro 00:00: 00:00 (100 mg - (Macrobid) 00 :00 total) by Exte rna 100 MG oral mouth 2 l Capsule times daily Meloxicam 2022- No 7.5mg QD Take 1 Josette ey 7.5 MG oral 2-10 -06 tablet Seybo ld Tablet 00:00: 00:00 (7.5 mg - 00 :00 total) by Externa mouth l daily as needed for pain Meloxicam 2022- No 7.5mg QD Take 1 Josette ey 7.5 MG oral 2-10 -13 tablet Seybo ld Tablet 00:00: 04:59 (7.5 mg - 00 :00 total) by Externa mouth l daily as needed for pain Meloxicam 2022- No 7.5mg QD Take 1 Josette ey 7.5 MG oral 2-10 -13 tablet Seybo ld Tablet 00:00: 04:59 (7.5 mg - 00 :00 total) by Externa mouth l daily as needed for pain Rosuvastati Yes [id number] 10mg Take 1 Harika n Calcium 2-06 tablet (10 Seyb old 10 MG oral 00:00: mg total) - Tablet 00 by mouth Externa daily l Rosuvastati Yes [id number] 10mg Take 1 Harika n Calcium 2-06 tablet (10 Seyb old 10 MG oral 00:00: mg total) - Tablet 00 by mouth Externa daily l Rosuvastati Yes [id number] 10mg Take 1 Harika n Calcium 2-06 tablet (10 Seyb old 10 MG oral 00:00: mg total) - Tablet 00 by mouth Externa daily l Rosuvastati 2022-0 2022- No [id number] 10mg Take 1 Harika n Calcium 2-06 04-11 tablet (10 Sey bold 10 MG oral 00:00: 00:00 mg total) - Tablet 00 :00 by mouth Externa daily l TAKE 1 No 300 CAPSULE BY 7-15 MOUTH 3 00:00: TIMES A DAY 00 WITH FOOD UNTIL FINISHED TAKE 1 2022-0 No 300 CAPSULE BY 7-15 MOUTH 3 00:00: TIMES A DAY 00 WITH FOOD UNTIL FINISHED Dose No 50 Unknown 08-19 00:00: 00 Dose 0 No 300 Unknown 08-19 00:00: 00 Dose 0 No 50 Unknown 08-19 00:00: 00 TAKE 1 0 No 50 TABLET BY 7-09 MOUTH EVERY 00:00: DAY FOR 5 00 DAYS TAKE 1 No 35 TABLET BY 7-09 MOUTH EVERY 00:00: DAY 00 mupirocin 2 0 Yes [id number] Apply to Univers % ointment 5-25 area(s) 3 ity of 00:00: (three) [place] 00 times Medical daily. Branch mupirocin 2 0 Yes [id number] Apply to Univers % ointment 5-25 area(s) 3 ity of 00:00: (three) [place] times Medical daily. Branch mupirocin 2 2021-0 Yes [id number] Apply to Univers % ointment 5-25 area(s) 3 ity of 00:00: (three) [place] 00 times Medical daily. Branch mupirocin 2 0 Yes [id number] Apply to Univers % ointment 5-25 area(s) 3 ity of 00:00: (three) [place] times Medical daily. Branch No known No Univers medications 08-05 ity of 22:00: [address] Vital Signs Vital Name Observation Time Observation Value Comments Source Body height 2022-09-01 15:14:00 170.2 cm Harika weiss - External Body weight 2022-09-01 15:14:00 119.976 kg Harika robersonbodeshaun - External BMI 2022-09-01 15:14:00 41.43 kg/m2 Harika robersonbodeshaun - External Body temperature 2022-08-10 18:26:00 37.11 Isabelle Josette Manzanares - External Respiratory rate 2022-08-10 18:26:00 16 /min Josette Manzanares - External Body height 2022-08-10 18:26:00 168.9 cm Harika weiss - External Body weight 2022-08-10 18:26:00 118.661 kg Hairka S eybold - External BMI 2022-08-10 18:26:00 41.59 kg/m2 Harika S eybold - External Oxygen saturation in 2022-08-10 18:26:00 98 /min Harika Manzanares - Arterial blood by External Pulse oximetry Systolic blood 2022-08-10 18:26:00 128 mm[Hg] Harika Seybold - pressure External Diastolic blood 2022-08-10 18:26:00 82 mm[Hg] Brucese y Seybold - pressure External Heart rate 2022-08-10 18:26:00 89 /min Harika S eybold - External Systolic blood 2022-05-16 19:40:00 126 mm[Hg] Harika Seybold - pressure External Diastolic blood 2022-05-16 19:40:00 85 mm[Hg] Madhu astorga Seybold - pressure External Heart rate 2022-05-16 19:40:00 90 /min Harika S eybold - External Body temperature 2022-05-16 19:40:00 37.06 Isabelle Josette ey Seybold - External Respiratory rate 2022-05-16 19:40:00 16 /min Josette ey Seybold - External Body height 2022-05-16 19:40:00 170.2 cm Harika Jean eybold - External Body weight 2022-05-16 19:40:00 115.214 kg Harika S eybold - External BMI 2022-05-16 19:40:00 39.78 kg/m2 Harika S eybold - External Body height 2022-04-10 20:48:00 170.2 cm Harika S eybold - External Body weight 2022-04-10 20:48:00 113.581 kg Harika S eybold - External BMI 2022-04-10 20:48:00 39.22 kg/m2 Harika S eybold - External Systolic blood 2022-03-08 22:04:00 109 mm[Hg] Harika Seybold - pressure External Diastolic blood 2022-03-08 22:04:00 76 mm[Hg] Madhu y Seybold - pressure External Heart rate 2022-03-08 22:04:00 86 /min Harika S eybold - External Body temperature 2022-03-08 22:04:00 37.17 Isabelle Josette Manzanares - External Respiratory rate 2022-03-08 22:04:00 16 /min Josette Manzanares - External Body height 2022-03-08 22:04:00 170.2 cm Harika robersonbodeshaun - External Body weight 2022-03-08 22:04:00 112.492 kg Harika robersonbold - External BMI 2022-03-08 22:04:00 38.84 kg/m2 Harika robersonbodeshaun - External Systolic blood 2021-10-04 01:03:00 124 mm[Hg] Univer sity of pressure [facility] Diastolic blood 2021-10-04 01:03:00 87 mm[Hg] Unive rsity of pressure [facility] Heart rate 2021-10-04 01:03:00 82 /min Universi ty of [facility] Body temperature 2021-10-04 01:03:00 37.06 Isabelle Univ ersity of [facility] Respiratory rate 2021-10-04 01:03:00 18 /min Univ ersity of [facility] Body height 2021-10-04 01:03:00 170.2 cm [facility]i ty [facility] [place] [facility] [place] Body weight 2021-10-04 01:03:00 102.314 kg [facility] [place] [facility] BMI 2021-10-04 01:03:00 35.33 kg/m2 Universi ty of [facility] Oxygen saturation in 2021-10-04 01:03:00 98 /min University Arterial blood by [facility] Pulse oximetry Branch Systolic blood 2021-06-29 15:20:00 139 mm[Hg] Univer sity of pressure [facility] Diastolic blood 2021-06-29 15:20:00 76 mm[Hg] Unive rsity of pressure [facility] Branch Heart rate 2021-06-29 15:20:00 90 /min Universi ty of [facility] Body temperature 2021-06-29 15:20:00 37.11 Isabelle Univ ersity of [facility] Respiratory rate 2021-06-29 15:20:00 18 /min Univ ersity of [facility] Body height 2021-06-29 15:20:00 170.2 cm Universi ty of [facility] Body weight 2021-06-29 15:20:00 104.327 kg [facility] BMI 2021-06-29 15:20:00 36.02 kg/m2 [facility] Oxygen saturation in 2021-06-29 15:20:00 99 /min [facility] blood by [facility] Pulse oximetry Branch BP Systolic 2021-08-19 08:12:00 121 mm[Hg] BP Diastolic 2021-08-19 08:12:00 80 mm[Hg] Weight Measured 2021-08-19 08:12:00 223.20 pounds Height Measured 2021-08-19 08:12:00 66.40 inches Body Temperature 2021-08-19 08:12:00 98.20 degrees Heart Rate 2021-08-19 08:12:00 79.00 /min Respiratory Rate 2021-08-19 08:12:00 BP Systolic 2020-11-04 16:56:00 127 mm[Hg] BP Diastolic 2020-11-04 16:56:00 82 mm[Hg] Weight Measured 2020-11-04 16:56:00 263.00 pounds Height Measured 2020-11-04 16:56:00 66.40 inches Body Temperature 2020-11-04 16:56:00 98.20 degrees Heart Rate 2020-11-04 16:56:00 89.00 /min Respiratory Rate 2020-11-04 16:56:00 Procedures Procedure Date / Time Performed Performing Clinician Sourc e FOOT LEFT 2022-03-08 22:33:54 Malorie Choudhary old - External POCT MOLECULAR STREP 2021-10-04 01:27:00 Unknown, Attending [facility] POCT MOLECULAR FLU 2021-10-04 01:13:00 Unknown, Attending [facility] ASSIGNMENT OF BENEFITS 2021-10-04 00:52:56 Doctor Unassigned, No [facility] INCISION AND DRAINAGE 2021-06-29 15:54:04 Amparo Lora [facility] NOTICE OF PRIVACY 2021-06-29 15:04:20 Doctor Unassigned, No [facility] CONSENT/REFUSAL FOR 2021-06-29 15:03:59 [facility] Unassigned, [facility] Plan of Care Planned Activity Planned Date Details Comments Source Goal Plan of Care Note [code = 72173-9] Goal Plan of Care Note [code = 68641-9] Goal Plan of Care Note [code = 36357-4] Goal Plan of Care Note [code = 56520-6] Goal Plan of Care Note [code = 84329-4] Goal Plan of Care Note [code = 07790-0] Goal Plan of Care Note [code = 11152-0] Goal Plan of Care Note [code = 96888-6] Goal Plan of Care Note [code = 89029-0] Goal Plan of Care Note [code = 48731-4] Goal Plan of Care Note [code = 64027-1] Goal Plan of Care Note [code = 03804-1] Encounters Start End Encounter Admission Attending Care Care Encounter Source Date/Time Date/Time Type Type Clinicians Facility Department ID 2023-02-26 2023-02-26 Outpatient HARIKA JUAN [id number] Harika 09:50:00 09:50:00 SHA Seybol d 2023-02-12 2023-02-12 Outpatient HARIKA JUAN [id number] Harika 09:50:00 09:50:00 SHA Seybol d 2022-09-01 2022-09-01 Outpatient HARIKA JUAN [id number] Harika 10:50:00 10:50:00 SHA Seybol d 2022-09-01 2022-09-01 Outpatient HARIKA BOB [id number] Harika 00:00:00 00:00:00 HARIKA Seybol d 2022-08-10 2022-08-10 Outpatient LAB47 HARIKA ORDAZ [id number] Harika 14:45:00 14:45:00 Seybol d 2022-08-10 2022-08-10 Outpatient HARIKA SCHMIDT [id number] Harika 14:00:00 14:00:00 LAURENT Seybol d 2022-07-20 2022-07-20 Outpatient LAB47 HARIKA ORDAZ [id number] Harika 09:25:00 09:25:00 Seybol d 2022-07-19 2022-07-19 Outpatient DUNCAN HARIKA ORDAZ [id number] Harika 00:00:00 00:00:00 MD JC Seybol d 2022-07-14 2022-07-14 Outpatient HARIKA CHOUDHARY [id number] Harika 15:15:00 15:15:00 MALORIE Seybol d 2022-06-23 2022-06-23 Outpatient HARIKA ORDAZ [id number] Harika 16:30:00 16:30:00 Seybol d 2022-06-19 2022-06-19 Outpatient HARIKA LIZARRAGA [id number] Harika 00:00:00 00:00:00 DANO Seybo ld 2022-06-19 2022-06-19 Outpatient HARIKA ORDAZ [id number] Harika 00:00:00 00:00:00 Seybol d 2022-06-16 2022-06-16 Outpatient HARIKA CHOUDHARY [id number] Harika 00:00:00 00:00:00 MALORIE Seybol d 2022-06-14 2022-06-14 Outpatient HARIKA ORDAZ [id number] Harika 13:15:00 13:15:00 Seybol d 2022-06-14 2022-06-14 Outpatient HARIKA LIZARRAGA [id number] Harika 00:00:00 00:00:00 DANO Seybo ld 2022-06-13 2022-06-13 Outpatient HARIKA ORDAZ [id number] Harika 13:00:00 13:00:00 Seybol d 2022-06-13 2022-06-13 Outpatient HARIKA CHOUDHARY [id number] Harika 00:00:00 00:00:00 MALORIE Seybol d 2022-05-31 2022-05-31 Outpatient HARIKA LIZARRAGA [id number] Harika 00:00:00 00:00:00 DANO Seybo ld 2022-05-26 2022-05-26 Outpatient HARIKA CHOUDHARY [id number] Harika 00:00:00 00:00:00 MALORIE Seybol d 2022-05-22 2022-05-22 Outpatient SOKUNBI, HARIKA ORDAZ [id number] Harika 00:00:00 00:00:00 MALORIE Seybol d 2022-05-16 2022-05-16 Outpatient SOKUNBI, HARIKA ORDAZ [id number] Harika 14:00:00 14:00:00 MALORIE Seybol d 2022-05-16 2022-05-16 Outpatient SOKUNBI, HARIKA ORDAZ [id number] Harika 00:00:00 00:00:00 MALORIE Seybol d 2022-05-03 2022-05-03 Outpatient SOKUNBI, HARIKA ORDAZ [id number] Harika 00:00:00 00:00:00 MALORIE Seybol d 2022-04-28 2022-04-28 Outpatient HARIKA MARTIN [id number] Harika 14:30:00 14:30:00 PIEDAD Seybol d 2022-04-17 2022-04-17 Outpatient HARIKA HOLDEN [id number] Harika 10:30:00 10:30:00 KENDALL Seybol d 2022-04-14 2022-04-14 Outpatient HARIKA JUAN [id number] Harika 09:50:00 09:50:00 SHA Seybol d 2022-04-10 2022-04-10 Outpatient HARIKA LIZARRAGA [id number] Harika 14:50:00 14:50:00 DANO Seybo ld 2022-04-10 2022-04-10 Outpatient HARIKA ORDAZ [id number] Harika 14:15:00 14:15:00 Seybol d 2022-04-10 2022-04-10 Outpatient HARIKA LIZARRAGA [id number] Harika 09:20:00 09:20:00 DANO Seybo ld 2022-04-10 2022-04-10 Outpatient HARIKA LIZARRAGA [id number] Harika 00:00:00 00:00:00 DANO Seybo ld 2022-03-17 2022-03-17 Outpatient HARIKA JUAN [id number] Harika 09:20:00 09:20:00 SHA Seybol d 2022-03-09 2022-03-09 Outpatient FRANCY HARIKA ORDAZ [id number] Harika 00:00:00 00:00:00 MALORIE Seybol d 2022-03-09 2022-03-09 Outpatient FRANCY HARIKA ORDAZ [id number] Harika 00:00:00 00:00:00 MALORIE Seybol d 2022-03-08 2022-03-08 Outpatient HARIKA ORDAZ [id number] Harika 16:30:00 16:30:00 Seybol d 2022-03-08 2022-03-08 Outpatient LAB47 HARIKA ORDAZ [id number] Harika 16:20:00 16:20:00 Seybol d 2022-03-08 2022-03-08 Outpatient FRANCYHARIKA [id number] Harika 15:30:00 15:30:00 MALORIE Seybol d 2022-02-28 2022-02-28 Outpatient HARIKA LICONA [id number] Harika 09:30:00 09:30:00 JUVENAL Seybol d 2022-02-08 2022-02-08 Outpatient HARIKA CASTORENA [id number] Harika 14:50:00 14:50:00 OLADAPO Seybol d 2022-02-07 2022-02-07 Outpatient HARIKA CASTORENA [id number] Harika 00:00:00 00:00:00 OLADAPO Seybol d 2021-10-04 2021-10-04 Letter KIRT Puri [id number] Univers 00:00:00 00:00:00 (Out) Mireille SPANGLER 350.1.13.10 it [facility] 4.2.7.2.686 Fam as [id number] [address] 2021-10-03 2021-10-03 Outpatient MONET DOMINGUEZ [facility] [id number] Univers 20:00:00 20:54:26 ity [facility] 2021-10-03 2021-10-03 Monet Rosario [id number] Univers 20:00:00 20:15:00 Care Unknown, Attending PEDIATRIC 350.1.13. 10 ity [place] [id number] [facility] PRIMARY [address] Branch CARE CLINIC 2021-10-03 2021-10-03 Orders Doctor KIRT [id number] Univers 00:00:00 00:00:00 Only Unassigned, ANÍBAL 350.1.13.10 ity of [facility] [facility] 4.2.7.2.686 Fam as [phone] [facility] [address] [place] 2021-08-19 2021-08-19 Outpatient [id number] 00:00:00 00:00:00 Visit [id number] 2021-06-29 2021-06-29 Emergency X GUIDO [facility] ERT [id number] Univers 10:22:00 11:26:00 AMPARO ity of [facility] 2021-06-29 2021-06-29 Emergency [facility] [id number] Univers 10:22:00 11:26:00 Amparo FORMAN 350.1.13.10 i ty of [place] 4.2.7.2.686 [facility] [phone] [facility] 0[address] Branch 2021-06-29 2021-06-29 Orders Doctor KIRT [id number] [id number] Univers 00:00:00 00:00:00 Only Unassigned, ANÍBAL 350.1.13.10 ity of [facility] 4.2.7.2.686 Fam as [id number] [facility] 009 Branch 2020-02-25 2020-02-25 Letter Doctor KIRT [id number] 00:00:00 00:00:00 (Out) Unassigned, ANÍBAL 350.1.13.10 [facility] 4.2.7.2.686 [id number] 2019-08-06 2019-08-06 Emergency Theresa DELITA [id number] 20:47:02 22:28:00 Chica Forman 350.1.13.10 [place] 4.2.7.2.686 [place] [id number] 2019-08-06 2019-08-06 Emergency X [facility] ERT [id number] Univers 20:36:00 20:36:00 [facility] 2019-06-21 2019-06-21 Emergency E CRISTIANO DOMINGUEZ [facility] [address] [facility] 12:28:00 14:10:00 Results Test Description Test Time Test Comments Results Result Comments Source POCT MOLECULAR STREP 2021-10-04 01:35:09 Test Item Value Reference Range Interpretation Comme nts POCT Molecular Strep (test code = 92102-2) Negative Negative Lab Interpretation (test code = 00885-7) [facility] [id number] 01:25:54 Test Item Value Reference Range Interpretation Comments POCT Molecular FluA (test code = Negative Negative 24869-6) POCT Molecular FluB (test code = Negative Negative 33614-2) Lab Interpretation (test code = Normal 31108-2) [facility] [id number] 05:54:22 Test Item Value Reference Range Interpretation Comments HEMOGLOBIN A1c (test code = 39891) 5.3 % 4.2-5.6 TSH, THIRD [id number] 05:28:35 Test Item Value Reference Range Interpretation Comments TSH, THIRD GENERATION (test code 0.751 UIU/ML 0.400-4.100 = 2821) CBC W/AUTO DIFF WITH [id number] 04:48:55 Test Item Value Reference Range Interpretation Comments WBC (test code = 6.9 K/UL 3.5-11.0 1001) RBC (test code = 4.72 M/UL 3.80-5.40 1002) HEMOGLOBIN (test code 14.2 G/DL 11.5-15.5 = 1003) HEMATOCRIT (test code 39.8 % 34.0-45.0 = 1004) MCV (test code = 84.3 fL 80.0-99.0 1005) MCH (test code = 30.1 PG 25.0-33.0 1006) MCHC (test code = 35.7 G/DL 31.0-36.0 1007) RDW (test code = 12.8 % 11.5-15.0 1038) NEUTROPHILS (test 57.8 % code = 1008) LYMPHOCYTES (test 34.4 % code = 1010) MONOCYTES (test code 5.8 % = 1011) EOSINOPHILS (test 1.3 % code = 1012) BASOPHILS (test code 0.6 % = 1013) IMMATURE GRANULOCYTES 0.1 % (test code = 1036) NUCLEATED RBCS (test 0.0 /100 WBC'S See_Comment [Aut omated code = 1065) message] The sy stem which generated this result transmitted reference range : 0.0. The refere nce range was not u sed to interpret th is result as normal/abnormal . PLATELET COUNT (test 277 K/UL 130-400 code = 1015) ABSOLUTE NEUTROPHILS 4.00 K/UL 1.50-7.50 (test code = 1066) ABSOLUTE LYMPHOCYTES 2.38 K/UL 1.00-4.00 (test code = 1067) ABSOLUTE MONOCYTES 0.40 K/UL 0.20-1.00 (test code = 1068) ABSOLUTE EOSINOPHILS 0.09 K/UL 0.00-0.50 (test code = 1040) ABSOLUTE BASOPHILS 0.04 K/UL 0.00-0.20 (test code = 1069) ABS IMMATURE 0.01 K/UL 0.00-0.10 GRANULOCYTES (test code = 1020) ABS NUCLEATED RBCS 0.02 K/UL 0.00-0.11 (test code = 32215) HEPATITIS PANEL, [id number] 04:33:01 Test Item Value Reference Range Interpretation Comments HEPATITIS A IgM (test NON-REACTIVE NON-REACTIVE code = 15252) HEPATITIS B CORE IgM NON-REACTIVE NON-REACTIVE (test code = 4644) HEPATITIS B SURF AG NON-REACTIVE NON-REACTIVE (test code = 2739) HEPATITIS C ANTIBODY NON-REACTIVE NON-REACTIVE (test code = 4675) INTERPRETATION (NOTE) Hepatitis A HEPATITIS A: (test code sero logy shows no = 2025) evidence of acu te hepatitis A. INTERPRETATION (NOTE) Hepatitis B HEPATITIS B: (test code sero logy shows no = 54958) evidence of acu te hepatitis B and no indication of exposure to hepatitis B vir us in the previous venkat eight months. INTERPRETATION (NOTE) Hepatitis C HEPATITIS C: (test code sero logy shows no = 84411) evidence of exposure to hepatitisC viru s at this time. I t can take up to 12 months after exposure tothe hepatitis C vir us for antibodies to become detectab le in the blood in certain patient s. HEPATITIS B SURFACE [id number] 04:33:01 Test Item Value Reference Range Interpretation Comments HEPATITIS B SURFACE REACTIVE NON-REACTIVE A UNLESS OTHERWISE AB (test code = 2737) INDICA CHAZ, ALL TESTING PERFORMED [facility] [employer] [address] [place] [address] 4 LABORATORY DIRE CTOR: DOMENICA CHANDRA M.D. CLIA NUMBER [id number] [facility] [place]. [id number] COMPREHENSIVE METABOLIC [id number] 03:15:27 Test Item Value Reference Range Interpretation Comments GLUCOSE (test code = 88 MG/DL 70-99 2216) BUN (test code = 9 MG/DL 6-20 2207) CREATININE (test 0.65 MG/DL 0.60-1.30 code = 2214) eGFR (2020 CKD-EPI) 122 >60 (test code = 56013) ML/MIN/1.73 CALC BUN/CREAT (test 14 RATIO 6-28 code = 2235) SODIUM (test code = 141 MEQ/L 443-640 8553) POTASSIUM (test code 4.4 MEQ/L 3.5-5.4 = 2228) CHLORIDE (test code 103 MEQ/L 95-107 = 2215) CARBON DIOXIDE (test 28 MEQ/L 19-31 code = 2206) CALCIUM (test code = 9.9 MG/DL 8.5-10.5 2208) PROTEIN, TOTAL (test 7.3 G/DL 6.1-8.3 code = 2229) ALBUMIN (test code = 4.5 G/DL 3.5-5.2 2200) CALC GLOBULIN (test 2.8 G/DL 1.9-3.7 code = 2240) CALC A/G RATIO (test 1.6 RATIO 1.0-2.6 code = 2234) BILIRUBIN, TOTAL 0.4 MG/DL See_Comment [Automated message] (test code = 2207) The syste m which generated this result transmit chaz reference range : <=1.2. The refe rence range was not u sed to interpret th is result as normal/abnormal . ALKALINE PHOSPHATASE 71 U/L 40-112 (test code = 2204) AST (test code = 9 U/L 9-40 2217) ALT (test code = 14 U/L 5-40 2218) LIPID [id number] 03:15:27 Test Item Value Reference Range Interpretation Comments CHOLESTEROL (test 207 MG/DL <200 H code = 2210) TRIGLYCERIDES (test 81 MG/DL <150 code = 2232) HDL CHOLESTEROL (test 45 MG/DL >39 code = 2220) CALC LDL CHOL (test 144 MG/DL <100 H NOTE: C ALCULATED LDL code = 2237) IS BASED ON CARMEN-JACKMAN METHOD WHICHINCLUDES ADJUSTABLE TRIGLYCERIDE:VL DL CHOLESTEROL RAT IO.THIS FACTOR VARIES B Y MEASURED TRIGLY CERIDE AND NON-HDLCHOL ESTEROL CONCENTRATIONS WITH INCREASED CALCU LATED LDL SEENIN HIGH ER TRIGLYCERIDE OR LOWER NON-HDL SPECIME NS. FOR MOREINFORMATION , SEE CLIENT ANNOUNCE MENT AT [email or web address] [email or web address] LDL/HDL 3.20 RATIO <3.22 (test code = 2238) SARS-CoV-2 (COVID-19) by RT-PCR (HIGH RISK)2020-02-21 00:00:00 Test Item Value Reference Range Interpretation Comments SARS-CoV-2 INTERPRETATION NEGATIVE (test code = 26360) SOURCE (test code = 22090) NASOPHARYNGEAL Notes Date/Time Note Provider Source 2022-09-01 10:20:11-00:00 Formatting of this note is d ifferent from the original. [facility] Chief Complaint Patient presents with Follow-up 5 months f/u lt foot pain p t stated she having constant pain pt stated she is on her feet all day due to her job per pt Izabel Lund Medication reviewed with pt
--- NOTE | 2022-09-03 16:00 | ER ---
Nurse's Notes [facility] Name: Kyra Dave Age: 31 yrs Sex: Female : 1990 Arrival Date: 09/03/2022 Time: 15:49 Bed 11 Private MD: Diagnosis: Unspecified injury of head, initial encounter Presentation: 09/03 15:55 Chief complaint: Patient states: that she dropped something at work and bent down to cm10 pick ut up and when she stood back up she hit her head on the corner of some wood. No LOC, PERRLA, no nausea and vomiting. Coronavirus screen: Client denies travel out of the [place] in the last 14 days. Ebola Screen: No symptoms or risks identified at this time. Initial Sepsis Screen: Does the patient meet any 2 criteria? No. Patient's initial sepsis screen is negative. Does the patient have a suspected source of infection? No. Patient's initial sepsis screen is negative. Risk Assessment: Do you want to hurt yourself or someone else? Patient reports no desire to harm self or others. Onset of symptoms was September 03, 2022. 15:55 Method Of Arrival: Ambulatory cm10 15:55 Acuity: BISMARK 4 cm10 Triage Assessment: 15:58 General: Appears in no apparent distress. comfortable, Behavior is calm, cooperative. cm10 Pain: Complains of pain in head. Neuro: No deficits noted. Level of Consciousness is awake, alert, obeys commands, Oriented to person, place, time, situation, Pupils are PERRLA. Respiratory: No deficits noted. Airway is patent Respiratory effort is even, unlabored, Respiratory pattern is regular, symmetrical. Historical: - Allergies: 15:57 No Known Drug Allergies; cm10 - PSHx: 15:57 section; galbladder removed; cm10 - Immunization history:: Adult Immunizations Adult Immunizations unknown. - Social history:: Smoking status: Reported history of juuling and/or vaping. Screenin:06 [facility] ED Fall Risk Assessment (Adult) Score/Fall Risk Level 0 - 2 = Low Risk hb Oriented to surroundings, Maintained a safe environment. Abuse screen: Denies threats or abuse. Denies injuries from another. Nutritional screening: No deficits noted. Tuberculosis screening: No symptoms or risk factors identified. Assessment: 16:06 General: See triage assessment. hb Vital Signs: 15:55 BP 123 / 81; Pulse 93; Resp 18; Temp 98(TE); Pulse Ox 100% ; Weight 119.29 kg; Height 5 cm10 ft. 7 in. ; Pain 5/10; 15:55 Body Mass Index 41.19 (119.29 kg, 170.18 cm) cm10 15:55 Pain Scale: Adult cm10 [place] Coma Score: 16:33 Eye Response: spontaneous(4). Motor Response: obeys commands(6). Verbal Response: kb oriented(5). Total: 15. 16:35 Eye Response: spontaneous(4). Motor Response: obeys commands(6). Verbal Response: kb oriented(5). Total: 15. ED Course: 15:52 Patient arrived in ED. kj1 15:52 Aleida Diaz FNP-C is [facility]. kb 15:52 Elier Mendoza DO is Attending Physician. kb 15:57 Triage completed. cm10 15:59 Arm band placed on Patient placed in waiting room. cm10 16:06 Patient has correct armband on for positive identification. Provided Education on: . hb 16:06 No provider procedures requiring assistance completed. Patient did not have IV access hb during this emergency room visit. Administered Medications: No medications were administered Medication: 16:06 VIS not applicable for this client. hb Outcome: 15:59 Discharge ordered by MD. kb 16:06 Discharged to home ambulatory, with significant other. hb 16:06 Condition: stable 16:06 Discharge instructions given to patient, significant other, Instructed on discharge instructions, follow up and referral plans. Demonstrated understanding of instructions, follow-up care. 16:07 Patient left the ED. hb Signatures: Aleida Diaz FNP-C FNP-Ckb Baxter, Heather, RN RN Deya Diaz kj1 Pratibha Gruber RN RN cm10
--- NOTE | 2022-09-03 16:00 | EDPHYS ---
Physician Documentation [facility] Name: Kyra Dave Age: 31 yrs Sex: Female : 1990 Arrival Date: 09/03/2022 Time: 15:49 Bed 11 Private MD: ED Physician Elier Mendoza HPI: 09/03 16:35 This 31 yrs old Female presents to ER via Ambulatory with complaints of Head kb Injury-Adult. 16:35 The patient or guardian reports injury, pain, swelling. The complaints affect the top kb of head. Context of injury: The problem was sustained at home, resulted from a direct blow. Onset: The symptoms/episode began/occurred just prior to arrival. Associated signs and symptoms: The patient has no apparent associated signs or symptoms, Loss of consciousness: This patient did not experience any loss of consciousness. Severity of symptoms: At their worst the symptoms were mild, in the emergency department the symptoms are unchanged. The patient has not experienced similar symptoms in the past. The patient has not recently seen a physician. Pt reports she bent down to pick something up off the ground and when she stood back up she hit the top of her head on a board. Historical: - Allergies: 15:57 No Known Drug Allergies; cm10 - PSHx: 15:57 section; galbladder removed; cm10 - Immunization history:: Adult Immunizations Adult Immunizations unknown. - Social history:: Smoking status: Reported history of juuling and/or vaping. ROS: 16:34 Constitutional: Negative for fever, chills, and weight loss. kb 16:34 Neuro: Positive for headache. 16:34 All other systems are negative. Exam: 16:34 Constitutional: This is a well developed, well nourished patient who is awake, alert, kb and in no acute distress. Eyes: Pupils equal round and reactive to light, extra-ocular motions intact. Lids and lashes normal. Conjunctiva and sclera are non-icteric and not injected. Cornea within normal limits. Periorbital areas with no swelling, redness, or edema. ENT: Moist Mucous membranes Cardiovascular: Regular rate and rhythm with a normal S1 and S2. No gallops, murmurs, or rubs. No pulse deficits. Respiratory: Respirations even and unlabored. No increased work of breathing. Talking in full sentences Abdomen/GI: Soft, non-tender. No distention Skin: Warm, dry with normal turgor. Normal color. MS/ Extremity: Pulses equal, no cyanosis. Neurovascular intact. Full, normal range of motion. Neuro: Awake and alert, GCS 15, oriented to person, place, time, and situation. Moves all extremities. Normal gait. 16:34 Head/face: Noted is no obvious of injury or deformity except hematoma, that is mild, that is moderate, of the top of head. Vital Signs: 15:55 BP 123 / 81; Pulse 93; Resp 18; Temp 98(TE); Pulse Ox 100% ; Weight 119.29 kg; Height 5 cm10 ft. 7 in. ; Pain 5/10; 15:55 Body Mass Index 41.19 (119.29 kg, 170.18 cm) cm10 15:55 Pain Scale: Adult cm10 [place] Coma Score: 16:33 Eye Response: spontaneous(4). Motor Response: obeys commands(6). Verbal Response: kb oriented(5). Total: 15. 16:35 Eye Response: spontaneous(4). Motor Response: obeys commands(6). Verbal Response: kb oriented(5). Total: 15. MDM: 15:52 Patient medically screened. kb 16:33 Differential diagnosis: Contusion of Hematoma on Laceration of Intracranial bleed- kb Concussion. Data reviewed: vital signs, nurses notes. Test considered but Not performed: CT: CT head considered, but pt has no neuro deficits, no loc, no n/v. Educated on return precautions. Counseling: I had a detailed discussion with the patient and/or guardian regarding: the historical points, exam findings, and any diagnostic results supporting the discharge/admit diagnosis, the need for outpatient follow up, a family practitioner, to return to the emergency department if symptoms worsen or persist or if there are any questions or concerns that arise at home. Special discussion: Based on the patient's history, exam and DX evaluation, there is no indication for emergent intervention or inpatient TX. It is understood by the patient/guardian that if the SXs persist or worsen they need to return immediately for re-evaluation. Administered Medications: No medications were administered Disposition: 16:40 Co-signature as Attending Physician, Elier POPE was immediately available on-site ms3 in the Emergency Department for consultation in the care of the patient. Disposition Summary: 09/03/22 15:59 Discharge Ordered Location: Home kb Condition: Stable kb Diagnosis - Unspecified injury of head, initial encounter kb Followup: kb - With: Emergency Department - When: As needed - Reason: Worsening of condition Followup: kb - With: Private Physician - When: 2 - 3 days - Reason: Recheck today's complaints, Continuance of care, Re-evaluation by your physician Discharge Instructions: - Discharge Summary Sheet kb - Head Injury, Adult, [id number] kb Forms: - Medication Reconciliation Form kb - Thank You Letter kb - Antibiotic Education kb - Prescription Opioid Use kb - Patient Portal Instructions kb Signatures: Aleida Diaz, SHONDAC DAYANA-Elier Leija DO DO ms3 Pratibha Gruber, RN RN cm10
[2022-09-03 16:16] VITALS: BP 123/81; TEMP 98; O2SAT 100
== END 2022-09-03 16:07 | disposition home or self-care (01) ==
LOC: ER 15:49
DX: S00.83XA Contusion of other part of head, initial encounter (principal)
CPT/HCPCS: 99282

== ENCOUNTER → 2023-03-04 | Emergency (ER) | payer OTHER ==
[~2023-03-04] MED LIST: KETOROLAC 30 MG/ML INJ ONE; NA CHLORIDE 0.9% 1,000 ML ONE; POTASSIUM 25 MEQ EFFERV TAB ONE
--- OUTSIDE RECORDS SUMMARY | 2023-03-04 20:19 | XMS REPORT | Continuity of Care Document ---
Author Name Unknown Address [address] [facility] [place] [address] [facility] Address [address] [facility] [place] [address] Care Team Providers Care Gristmiller Name Role Phone Veronica Judy ANNE Primary Care Physician PIEDAD MARTIN Attending Clinician Unavailable SAWYER SR Attending Clinician Unavailable SHA JUAN Attending Clinician Unavailable LAB47 Attending Clinician Unavailable KATIA AVALOS Attending Clinician Unavailable RAVEN MCGRAW Attending Clinician Unavailable SAMM CUEVA Attending Clinician Unavailable LISA WARNER Attending Clinician Unavailable KRISTY CASTORENA Attending Clinician UnaARELI Brown Attending Clinician Unavaila COURTNEY Grant Attending Clinician Unavailable HARIKA BOB MEDICAL Attending Clinicia latosha Unavailable LAURENT SCHMIDT Attending Clinician Unavailab jeimy RIVERA MD Attending Clinician Unavailab MALORIE Spangler Attending Clinician Unavailable DANO LIZARRAGA Attending Clinician UnavailKENDALL Khanna Attending Clinician Unavailable JUVENAL LICONA Attending Clinician Unamackenzie iloswaldo Puri RN, Mireille Rodrigez Attending Clinician Unavailab MONET Yeh Attending Clinician Unavailable Monet Turner PA-C Attending Clinician [phone] Unknown, Attending Attending Clinician Unavailab le Doctor Unassigned, [place] Attending Clinician U AMPARO Andrew S Attending Clinician Unavailable Amparo Machado S Attending Clinician Chica Cardenas NP Attending Clinician Payers Payer Name Policy Type Policy Number Effective Date Expirati on Date Source AETANI MP ELINOR BRITO S 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 Allergies, Adverse Reactions, Alerts Allergy Name Allergy Type Status Severity Reaction(s) Onset Date Inactive Date Treating Clinician Comments Source NO KNOWN ALLERGIE S Drug Class Active [facility] Social History Social Habit Start Date Stop Date Quantity Comments Source Gender identity 2022-03-08 17:35:28 Identifies as female gender (finding) Harika Manzanares - External Sexual orientation 2022-03-08 17:35:28 Heterosexual (finding) Harika Manzanares - External History of tobacco use Cigarette Smoker Harika rosario - External Alcohol intake 2023-03-02 00:00:00 2023-03-02 00:00:00 .71 /d Harika Manzanares - External History of Social function 2022-10-23 00:00:00 2022-10-23 00:00:00 Harika Manzanares - External Tobacco Comment 2022-10-17 00:00:00 2022-10-17 00:00:00 She does vaping. Harika Manzanares - External Cigarettes smoked current (pack per day) - Reported 2022-10-17 00:00:00 2022-10-17 00:00:00 Harika Manzanares - External Cigarette pack-years 2022-10-17 00:00:00 2022-10-17 00:00:00 Harika Manzanares - External Tobacco use and exposure 2022-03-08 00:00:00 2022-03-08 00:00:00 Smokeless tobacco non-user Harika Manzanares - External Exposure to SARS-CoV-2 (event) 2021-09-23 00:00:00 2021-10-03 19:50:00 Yes [facility] Sex Assigned At 1990 00:00:00 1990 00:00:00 F Harika Manzanares - External Smoking Status Start Date Stop Date Source Tobacco smoking consumption unknown [facility] Ex-smoker 2022-10-17 00:00:00 2022-10-17 00:00:00 Harika Manzanares - External Never smoked tobacco Harika Manzanares - External Medications Ordered Medication Name Filled Medication Name Start Date Stop Date Current Medication? Ordering Clinician Indication Dosage Frequency Signature (SIG) Comments Components Source Methylpredn isolone Acetate (DEPO-MEDRO L) 40 mg/mL 03-02 22:15: 00 03-02 23:48 :00 No [id number] 40mg Harika Leighton - Kela michael Methylpredn isolone Acetate (DEPO-MEDRO L) 40 mg/mL 03-02 22:15: 00 03-02 23:48 :00 No [id number] 40mg 40 mg, injection, ONCE, 1 dose, On Sun03/02/23 at 1615 Harika Manzanares - Externa l Norethindro ne Acetate (Aygestin) 5 MG oral Tablet 02-13 00:00: 00 Yes [id number] Take one tablet 3x/d x 3 days then twice daily x 2 days then daily.. Harika Manzanares - Externa l Norethindro ne Acetate (Aygestin) 5 MG oral Tablet 02-13 00:00: 00 Yes [id number] Take one tablet 3x/d x 3 days then twice daily x 2 days then daily.. Harika Manzanares - Externa l Doxycycline Hyclate 100 MG oral Tablet 2022-02 00:00: 00 Yes [id number] 100mg Take 1 tablet (100 mg total) by mouth 2 times daily. Harika Manzanares - Externa michael Doxycycline Hyclate 100 MG oral Tablet 2023-1 1-14 00:00: 00 02-13 00:00 :00 No [id number] 100mg Take 1 tablet (100 mg total) by mouth 2 times daily. Harika rodriguez Xulane 150-35 MCG/24HR transdermal PATCH WEEKLY 2022-02 0-16 00:00: 00 02-13 00:00 :00 No Harika Beguma l Semaglutide (0.25 or 0.5 mg/dose) 2 mg/3 mL SQ Solution Pen-Injecto r 10-31 00:00: 00 Yes [id number] .25 mg weekly. Harika Beguma l Semaglutide (0.25 or 0.5 mg/dose) 2 mg/3 mL SQ Solution Pen-Injecto r 10-31 00:00: 00 Yes [id number] .25 mg weekly. Harika Zuleta l Semaglutide (0.25 or 0.5 mg/dose) 2 mg/3 mL SQ Solution Pen-Injecto r 10-31 00:00: 00 Yes [id number] .25 mg weekly. Harika Beguma l Semaglutide (0.25 or 0.5 mg/dose) 2 mg/3 mL SQ Solution Pen-Injecto r 10-31 00:00: 00 02-13 00:00 :00 No [id number] .25 mg weekly. Harika rodriguez Semaglutide -SUSAN-Praveen ght Management 0.25 MG/0.5ML Subcutaneou s Solution Auto-inject or 09-27 00:00: 00 11-16 00:00 :00 No [id number] 104 .25mg Inject 0.25 mg into the skin once a week. Harika Beguma l Semaglutide -WEGOVY-Praveen ght Management 0.25 MG/0.5ML Subcutaneou s Solution Auto-inject or 09-27 00:00: 00 10-28 04:59 :00 No [id number] 104 .25mg Inject 0.25 mg into the skin once a week. Harika Beguma michael Semaglutide -SUSAN-Praveen ght Management 0.25 MG/0.5ML Subcutaneou s Solution Auto-inject or 09-27 00:00: 00 10-28 04:59 :00 No [id number] 104 .25mg Inject 0.25 mg into the skin once a week. Harika Manzanares - Externa l Methylpredn isolone Acetate (DEPO-MEDRO L) 40 mg/mL 09-01 16:15: 00 09-01 16:07 :00 No 49 40mg Harika Manzanares - Externa l Methylpredn isolone Acetate (DEPO-MEDRO L) 40 mg/mL 09-01 16:15: 00 09-01 16:07 :00 No 49 40mg 40 mg, Physician Administer ed, ONCE, 1 dose, On Sun09/01/22 at 1115 Harika Cuenca Externa michael Ibuprofen (MOTRIN) 800 MG oral Tablet 09-01 00:00: 00 Yes Harika Manzanares - Externa l Ibuprofen (MOTRIN) 800 MG oral Tablet 09-01 00:00: 00 Yes Harika Manzanares - Externa l Ibuprofen (MOTRIN) 800 MG oral Tablet 09-01 00:00: 00 Yes Harika Manzanares - Externa l Ibuprofen (MOTRIN) 800 MG oral Tablet 09-01 00:00: 00 Yes Harika Manzanares - Externa l Ibuprofen (MOTRIN) 800 MG oral Tablet 09-01 00:00: 00 Yes Harika Manzanares - Externa l Ibuprofen (MOTRIN) 800 MG oral Tablet 09-01 00:00: 00 11-16 00:00 :00 No [id number] 800mg Q.[id number] 3D Take 1 tablet (800 mg total) by mouth every 8 hours as needed for pain (left foot pain) Harika Manzanares - Externa l Ibuprofen (MOTRIN) 800 MG oral Tablet 09-01 00:00: 00 10-02 04:59 :00 No [id number] 9107 800mg Q.[id number] 3D Take 1 tablet (800 mg total) by mouth every 8 hours as needed for pain (left foot pain) Harika rodriguez Ibuprofen (MOTRIN) 800 MG oral Tablet 09-01 00:00: 00 10-02 04:59 :00 No [id number] 9107 800mg Q.[id number] 3D Take 1 tablet (800 mg total) by mouth every 8 hours as needed for pain (left foot pain) Harika rodriguez Liraglutide -Weight Management 18 MG/3ML subcutaneou s Solution Pen-injecto r 05-17 00:00: 00 08-10 00:00 :00 No [id number] .6mg Inject 0.1 mL (0.6 mg total) into the skin daily Harika rodriguez Semaglutide -Weight Management 0.25 MG/0.5ML subcutaneou s Solution Auto-inject or 05-16 00:00: 00 06-16 04:59 :00 No [id number] .25mg Inject 0.25 mg into the skin once a week Harika rodriguez Nitrofurant oin Monohyd Macro (Macrobid) 100 MG oral Capsule 04-17 00:00: 00 Yes [id number] 100mg Take 1 capsule (100 mg total) by mouth 2 times daily Harika rodriguez Nitrofurant oin Monohyd Macro (Macrobid) 100 MG oral Capsule 04-17 00:00: 00 05-16 00:00 :00 No [id number] 100mg Take 1 capsule (100 mg total) by mouth 2 times daily Harika rodriguez Meloxicam 7.5 MG oral Tablet 2-10 00:00: 00 08-10 00:00 :00 No 7.5mg QD Take 1 tablet (7.5 mg total) by mouth daily as needed for pain Harika rodriguez Meloxicam 7.5 MG oral Tablet 2-10 00:00: 00 04-17 04:59 :00 No 7.5mg QD Take 1 tablet (7.5 mg total) by mouth daily as needed for pain Harika Leighton - Merlyn rodriguez Meloxicam 7.5 MG oral Tablet 2-10 00:00: 00 04-17 04:59 :00 No 7.5mg QD Take 1 tablet (7.5 mg total) by mouth daily as needed for pain Harika Manzanares - Externa michael Rosuvastati n Calcium 10 MG oral Tablet 03-13 00:00: 00 Yes [id number] 10mg Take 1 tablet (10 mg total) by mouth daily Harika Leighton - Externa l Rosuvastati n Calcium 10 MG oral Tablet 03-13 00:00: 00 Yes [id number] 10mg Take 1 tablet (10 mg total) by mouth daily Harika Leighton - Externa l Rosuvastati n Calcium 10 MG oral Tablet 03-13 00:00: 00 Yes [id number] 10mg Take 1 tablet (10 mg total) by mouth daily Harika Manzanares - Externa michael Rosuvastati n Calcium 10 MG oral Tablet 03-13 00:00: 00 05-16 00:00 :00 No [id number] 10mg Take 1 tablet (10 mg total) by mouth daily Harika Leighton - Merlyn l TAKE 1 CAPSULE BY MOUTH 3 TIMES A DAY WITH FOOD UNTIL FINISHED 08-19 00:00: 00 No 300 TAKE 1 CAPSULE BY MOUTH 3 TIMES A DAY WITH FOOD UNTIL FINISHED 08-19 00:00: 00 No 300 Dose Unknown 08-19 00:00: 00 No 50 Dose Unknown 08-19 00:00: 00 No 300 Dose Unknown 08-19 00:00: 00 No 50 TAKE 1 TABLET BY MOUTH EVERY DAY FOR 5 DAYS 08-13 00:00: 00 No 50 TAKE 1 TABLET BY MOUTH EVERY DAY 08-13 00:00: 00 No 35 mupirocin 2 % ointment 5-25 00:00: 00 Yes [id number] Apply to area(s) 3 (three) times daily. [facility] mupirocin 2 % ointment 06-29 00:00: 00 Yes [id number] Apply to area(s) 3 (three) times daily. [facility] mupirocin 2 % ointment 06-29 00:00: 00 Yes [id number] Apply to area(s) 3 (three) times daily. [facility] mupirocin 2 % ointment 06-29 00:00: 00 Yes [id number] Apply to area(s) 3 (three) times daily. [facility] No known medications 08-05 22:00: [address] [facility] Vital Signs Vital Name Observation Time Observation Value Comments S ource Body weight 2023-03-02 21:11:00 119.931 kg Josette ey Seybold - External BMI 2023-03-02 21:11:00 41.41 kg/m2 Josette ey Seybold - External Systolic blood pressure 2023-02-13 19:33:00 122 mm[Hg] Harika Seybo ld - External Diastolic blood pressure 2023-02-13 19:33:00 80 mm[Hg] Harika Seybo ld - External Heart rate 2023-02-13 19:33:00 97 /min Kelse y Seybold - External Respiratory rate 2023-02-13 19:33:00 18 /min Harika Seybold - External Body height 2023-02-13 19:33:00 170.2 cm Josette ey Seybold - External Body weight 2023-02-13 19:33:00 120.657 kg Josette ey Seybold - External BMI 2023-02-13 19:33:00 41.66 kg/m2 Josette ey Seybold - External Body height 2022-11-28 14:38:00 170.2 cm Josette ey Seybold - External Body weight 2022-11-28 14:38:00 120.657 kg Josette ey Seybold - External BMI 2022-11-28 14:38:00 41.66 kg/m2 Josette ey Seybold - External Systolic blood pressure 2022-11-16 20:11:00 114 mm[Hg] Harika Seybo ld - External Diastolic blood pressure 2022-11-16 20:11:00 80 mm[Hg] Harika Camarilloo ld - External Heart rate 2022-11-16 20:11:00 90 /min Madhu y ybold - External Body temperature 2022-11-16 20:11:00 36.83 Isabelle Harika Shafferybold - External Respiratory rate 2022-11-16 20:11:00 15 /min Harika Shafferybold - External Body weight 2022-11-16 20:11:00 120.657 kg Josette ey Seybold - External BMI 2022-11-16 20:11:00 41.66 kg/m2 Josette ey Seybold - External Body height 2022-10-17 14:05:00 170.2 cm Josette ey Seybold - External Body weight 2022-10-17 14:05:00 119.75 kg Josette ey Seybold - External BMI 2022-10-17 14:05:00 41.35 kg/m2 Josette ey Seybold - External Body height 2022-09-01 15:14:00 170.2 cm Josette ey Seybold - External Body weight 2022-09-01 15:14:00 119.976 kg Josette ey Seybold - External BMI 2022-09-01 15:14:00 41.43 kg/m2 Josette ey Seybold - External Body temperature 2022-08-10 18:26:00 37.11 Isabelle Harika Shafferybold - External Respiratory rate 2022-08-10 18:26:00 16 /min Harika Shafferybold - External Body height 2022-08-10 18:26:00 168.9 cm Josette ey Seybold - External Body weight 2022-08-10 18:26:00 118.661 kg Josette ey Seybold - External BMI 2022-08-10 18:26:00 41.59 kg/m2 Josette ey Seybold - External Oxygen saturation in Arterial blood by Pulse oximetry 2022-08-10 18:26:00 98 /min Harika Camarilloo ld - External Systolic blood pressure 2022-08-10 18:26:00 128 mm[Hg] Harika Camarilloo ld - External Diastolic blood pressure 2022-08-10 18:26:00 82 mm[Hg] Harika Shafferybo ld - External Heart rate 2022-08-10 18:26:00 89 /min Kelse y Seybold - External Systolic blood pressure 2022-05-16 19:40:00 126 mm[Hg] Harika Shafferybo ld - External Diastolic blood pressure 2022-05-16 19:40:00 85 mm[Hg] Harika Shafferybo ld - External Heart rate 2022-05-16 19:40:00 90 /min Kelse y Seybold - External Body temperature 2022-05-16 19:40:00 37.06 Isabelle Harika Seybold - External Respiratory rate 2022-05-16 19:40:00 16 /min Harika Seybold - External Body height 2022-05-16 19:40:00 170.2 cm Josette ey Seybold - External Body weight 2022-05-16 19:40:00 115.214 kg Josette ey Seybold - External BMI 2022-05-16 19:40:00 39.78 kg/m2 Josette ey Seybold - External Body height 2022-04-10 20:48:00 170.2 cm Josette ey Seybold - External Body weight 2022-04-10 20:48:00 113.581 kg Josette ey Seybold - External BMI 2022-04-10 20:48:00 39.22 kg/m2 Josette ey Seybold - External Systolic blood pressure 2022-03-08 22:04:00 109 mm[Hg] Harika Shafferybo ld - External Diastolic blood pressure 2022-03-08 22:04:00 76 mm[Hg] Harika Shafferybo ld - External Heart rate 2022-03-08 22:04:00 86 /min Kelse y Seybold - External Body temperature 2022-03-08 22:04:00 37.17 Isabelle Harika Seybold - External Respiratory rate 2022-03-08 22:04:00 16 /min Harika Seybold - External Body height 2022-03-08 22:04:00 170.2 cm Josette ey Seybold - External Body weight 2022-03-08 22:04:00 112.492 kg Josette ey Seybold - External BMI 2022-03-08 22:04:00 38.84 kg/m2 Josette Camarilloold - External Systolic blood pressure 2021-10-04 01:03:00 124 mm[Hg] [facility] Diastolic blood pressure 2021-10-04 01:03:00 87 mm[Hg] [facility] Heart rate 2021-10-04 01:03:00 82 /min [facility] Body temperature 2021-10-04 01:03:00 37.06 Isabelle [facility] Respiratory rate 2021-10-04 01:03:00 18 /min [facility] Body height 2021-10-04 01:03:00 170.2 cm [facility] Body weight 2021-10-04 01:03:00 102.314 kg [facility] BMI 2021-10-04 01:03:00 35.33 kg/m2 [facility] Oxygen saturation in Arterial blood by Pulse oximetry 2021-10-04 01:03:00 98 /min [facility] Systolic blood pressure 2021-06-29 15:20:00 139 mm[Hg] [facility] Diastolic blood pressure 2021-06-29 15:20:00 76 mm[Hg] [facility] Heart rate 2021-06-29 15:20:00 90 /min [facility] Body temperature 2021-06-29 15:20:00 37.11 Isabelle [facility] Respiratory rate 2021-06-29 15:20:00 18 /min [facility] Body height 2021-06-29 15:20:00 170.2 cm [facility] Body weight 2021-06-29 15:20:00 104.327 kg [facility] BMI 2021-06-29 15:20:00 36.02 kg/m2 [facility] Oxygen saturation in Arterial blood by Pulse oximetry 2021-06-29 15:20:00 99 /min [facility] BP Systolic 2021-08-19 08:12:00 121 mm[Hg] BP [...] Procedures Procedure Date / Time Performed Performing Clinicia n Source FOOT LEFT 2022-03-08 22:33:54 Malorie Choudhary Seybold - External POCT MOLECULAR STREP 2021-10-04 01:27:00 Unknown, Atte nding [facility] POCT MOLECULAR FLU 2021-10-04 01:13:00 Unknown, Attend ing [facility] ASSIGNMENT OF BENEFITS 2021-10-04 00:52:56 Docto r Unassigned, [place] [facility] INCISION AND DRAINAGE 2021-06-29 15:54:04 Amparo Lora [facility] NOTICE OF PRIVACY PRACTICES 2021-06-29 15:04:20 Doctor Unassigned, [place] [facility] CONSENT/REFUSAL FOR DIAGNOSIS AND TREATMENT 2021-06-29 15:03:59 Doctor Unassigned, [place] [facility] Plan of Care Planned Activity Planned Date Details Comments Source Goal Plan of Care Note [code = 94450-5] Goal Plan of Care Note [code = 87001-2] Goal Plan of Care Note [code = 88286-3] Goal Plan of Care Note [code = 27963-0] Goal Plan of Care Note [code = 73543-9] Goal Plan of Care Note [code = 85685-1] Goal Plan of Care Note [code = 79142-6] Goal Plan of Care Note [code = 97339-3] Goal Plan of Care Note [code = 76534-2] Goal Plan of Care Note [code = 13542-8] Goal Plan of Care Note [code = 62204-5] Goal Plan of Care Note [code = 59010-9] Encounters Start Date/Time End Date/Time Encounter Type Admission Type Attending [facility] Care Department Encounter ID Source 2023-03-23 16:15:00 2023-03-23 16:15:00 Outpatient HARIKA ORDAZ [id number] [facility] 2023-03-02 15:40:00 2023-03-02 15:40:00 Outpatient PIEDAD MARTIN [id number] [facility] 2023-03-02 13:15:00 2023-03-02 13:15:00 Outpatient HARIKA ORDAZ [id number] [facility] 2023-03-02 00:00:00 2023-03-02 00:00:00 Outpatient SAWYER SR [id number] [facility] 2023-03-01 00:00:00 2023-03-01 00:00:00 Outpatient SAWYER SR [id number] [facility] 2023-02-26 09:50:00 2023-02-26 09:50:00 Outpatient SHA JUAN [id number] [facility] 2023-02-15 00:00:00 2023-02-15 00:00:00 Outpatient SAWYER SR [id number] [facility] 2023-02-13 14:30:00 2023-02-13 14:30:00 Outpatient HOLLY ORDAZ [id number] [facility] 2023-02-13 13:45:00 2023-02-13 13:45:00 Outpatient SAWYER SR [id number] [facility] 2023-02-12 14:45:00 2023-02-12 14:45:00 Outpatient KATIA AVALOS [id number] [facility] 2023-02-12 11:00:00 2023-02-12 11:00:00 Outpatient RAVEN MCGRAW HARIKA ORDAZ [id number] [facility] 2023-02-12 09:50:00 2023-02-12 09:50:00 Outpatient HSA JUAN HARIKA ORDAZ [id number] [facility] 2022-12-19 17:30:00 2022-12-19 17:30:00 Outpatient CUEVA SAMM HARIKA ORDAZ [id number] [facility] 2022-12-19 09:50:00 2022-12-19 09:50:00 Outpatient LISA WARNER [id number] [facility] 2022-11-28 10:00:00 2022-11-28 10:00:00 Outpatient KRISTY CASTORENA [id number] [facility] 2022-11-28 00:00:00 2022-11-28 00:00:00 Outpatient KRISTY CASTORENA [id number] [facility] 2022-11-28 00:00:00 2022-11-28 00:00:00 Outpatient HARIKA ORDAZ [id number] [facility] 2022-11-16 16:15:00 2022-11-16 16:15:00 Outpatient [facility] HARIKA ORDAZ [id number] [facility] 2022-11-16 15:30:00 2022-11-16 15:30:00 Outpatient JONY ARELIMadonna ORDAZ [id number] [facility] 2022-11-09 00:00:00 2022-11-09 00:00:00 Outpatient KRISTY CASTORENA [id number] [facility] 2022-10-31 00:00:00 2022-10-31 00:00:00 Outpatient KRISTY CASTORENA [id number] [facility] 2022-10-17 08:50:00 2022-10-17 08:50:00 Outpatient KRISTY CASTORENA [id number] [facility] 2022-10-17 08:40:00 2022-10-17 08:40:00 Outpatient HARIKA ORDAZ [id number] [facility] 2022-10-17 00:00:00 2022-10-17 00:00:00 Outpatient KRISTY CASTORENA HARIKA ORDAZ [id number] [facility] 2022-10-17 00:00:00 2022-10-17 00:00:00 Outpatient KRISTY CASTORENA HARIKA ORDAZ [id number] [facility] 2022-10-16 00:00:00 2022-10-16 00:00:00 Outpatient KRISTY CASTORENA HARIKA ORDAZ [id number] [facility] 2022-09-27 16:45:00 2022-09-27 16:45:00 Outpatient COURTNEY LEON [id number] [facility] 2022-09-01 10:50:00 2022-09-01 10:50:00 Outpatient SHA JUAN [id number] [facility] 2022-09-01 00:00:00 2022-09-01 00:00:00 [id number] [facility] 2022-08-10 14:45:00 2022-08-10 14:45:00 Outpatient LAB47 HARIKA ORDAZ [id number] [facility] 2022-08-10 14:00:00 2022-08-10 14:00:00 Outpatient LAURENT SCHMIDT [id number] [facility] 2022-07-20 09:25:00 2022-07-20 09:25:00 Outpatient LAB47 HARIKA ORDAZ [id number] [facility] 2022-07-19 00:00:00 2022-07-19 00:00:00 Outpatient MD HARIKA WOLF [id number] [facility] 2022-07-14 15:15:00 2022-07-14 15:15:00 Outpatient MALORIE CHOUDHARY [id number] [facility] 2022-06-23 16:30:00 2022-06-23 16:30:00 Outpatient HARIKA ORDAZ [id number] [facility] 2022-06-19 00:00:00 2022-06-19 00:00:00 Outpatient DANO LIZARRAGA HARIKA ORDAZ [id number] [facility] 2022-06-19 00:00:00 2022-06-19 00:00:00 Outpatient HARIKA ORDAZ [id number] [facility] 2022-06-16 00:00:00 2022-06-16 00:00:00 Outpatient YANETHMellissaEDILKAYIZABELMALORIECely ORDAZ [id number] [facility] 2022-06-14 13:15:00 2022-06-14 13:15:00 Outpatient HARIKA ORDAZ [id number] [facility] 2022-06-14 00:00:00 2022-06-14 00:00:00 Outpatient DANO LIZARRAGA HARIKA ORDAZ [id number] [facility] 2022-06-13 13:00:00 2022-06-13 13:00:00 Outpatient HARIKA ORDAZ [id number] [facility] 2022-06-13 00:00:00 2022-06-13 00:00:00 Outpatient MALORIE CHOUDHARY [id number] [facility] 2022-05-31 00:00:00 2022-05-31 00:00:00 Outpatient DANO LIZARRAGA HARIKA ORDAZ [id number] [facility] 2022-05-26 00:00:00 2022-05-26 00:00:00 Outpatient MALORIE CHOUDHARY [id number] [facility] 2022-05-22 00:00:00 2022-05-22 00:00:00 Outpatient MALORIE CHOUDHARY [id number] [facility] 2022-05-16 14:00:00 2022-05-16 14:00:00 Outpatient MALORIE CHOUDHARY [id number] [facility] 2022-05-16 00:00:00 2022-05-16 00:00:00 Outpatient MALORIE CHOUDHARY [id number] [facility] 2022-05-03 00:00:00 2022-05-03 00:00:00 Outpatient MALORIE CHOUDHARY HARIKA ORDAZ [id number] [facility] 2022-04-28 14:30:00 2022-04-28 14:30:00 Outpatient PIEDAD MARTIN HARIKA ORDAZ [id number] [facility] 2022-04-17 10:30:00 2022-04-17 10:30:00 Outpatient KENDALL HOLDEN HARIKA ORDAZ [id number] [facility] 2022-04-14 09:50:00 2022-04-14 09:50:00 Outpatient SHA JUAN [id number] [facility] 2022-04-10 14:50:00 2022-04-10 14:50:00 Outpatient DANO LIZARRAGA [id number] [facility] 2022-04-10 14:15:00 2022-04-10 14:15:00 Outpatient HARIKA ORDAZ [id number] [facility] 2022-04-10 09:20:00 2022-04-10 09:20:00 Outpatient LIZZKEEGAN DANO ORDAZ [id number] [facility] 2022-04-10 00:00:00 2022-04-10 00:00:00 Outpatient DANO LIZARRAGA [id number] [facility] 2022-03-17 09:20:00 2022-03-17 09:20:00 Outpatient SHA JUAN [id number] [facility] 2022-03-09 00:00:00 2022-03-09 00:00:00 Outpatient MALORIE CHOUDHARY HARIKA ORDAZ [id number] [facility] 2022-03-09 00:00:00 2022-03-09 00:00:00 Outpatient NORRISEDILMALORIE VILLANUEVA [id number] [facility] 2022-03-08 16:30:00 2022-03-08 16:30:00 Outpatient HARIKA ORDAZ [id number] [facility] 2022-03-08 16:20:00 2022-03-08 16:20:00 Outpatient HOLLY ORDAZ [id number] [facility] 2022-03-08 15:30:00 2022-03-08 15:30:00 Outpatient MALORIE CHOUDHARY HARIKA [id number] [facility] 2022-02-28 09:30:00 2022-02-28 09:30:00 Outpatient JUVENAL LICONA HARIKA HARIKA [id number] [facility] 2022-02-08 14:50:00 2022-02-08 14:50:00 Outpatient KRISTY CASTORENA HARIKA [id number] [facility] 2022-02-07 00:00:00 2022-02-07 00:00:00 Outpatient KRISTY CASTORENA HARIKA HARIKA [id number] [facility] 2021-10-04 00:00:00 2021-10-04 00:00:00 Letter (Out) Mireille Puri [facility] .840.114 350.1.13.10 4.2.7.2.[id number] [facility] 2021-10-03 20:00:00 2021-10-03 20:54:26 Outpatient R [facility] [id number] [facility] 2021-10-03 20:00:00 2021-10-03 20:15:00 Urgent Care Monet Turner Unknown, Attending [facility] 1.840.114 350.1.13.10 4.2.7.2.[id number] [facility] 2021-10-03 00:00:00 2021-10-03 00:00:00 Orders Only Doctor Unassigned, [place] [facility] 1..840.114 350.1.13.10 4.2.7.2.[id number] [facility] 2021-08-19 00:00:00 2021-08-19 00:00:00 Outpatient Visit [id number] 2021-06-29 10:22:00 2021-06-29 11:26:00 Emergency X AMPARO LORA [facility] [id number] [facility] 2021-06-29 10:22:00 2021-06-29 11:26:00 Emergency Amparo Lora [facility] 1.2.840.114 350.1.13.10 4.2.7.2.[id number] [facility] 2021-06-29 00:00:00 2021-06-29 00:00:00 Orders Only Doctor Unassigned, [place] [facility] 1.2.840.114 350.1.13.10 4.2.7.2.[id number] [facility] 2020-02-25 00:00:00 2020-02-25 00:00:00 Letter (Out) Doctor Unassigned, [place] [facility] 1.2.840.114 350.1.13.10 4.2.7.2.686 [id number] 2019-08-06 20:47:02 2019-08-06 22:28:00 Emergency Chica Cardenas [facility] 1.2.840.114 350.1.13.10 4.2.7.2.686 [id number] 2019-08-06 20:36:00 2019-08-06 20:36:00 Emergency X [facility] [id number] [facility] Results Test Description Test Time Test Comments Results Result Co mments Source [facility] [id number] 01:25:54* Test Item Value Reference Range Interpretation Comme nts POCT Molecular FluA (test co de = 92336-8) Negative Negative POCT Molecular FluB (test co de = 79739-6) Negative Negative Lab Interpretation (test cod e = 84490-5) Normal [facility] [id number] 05:54:22* Test Item Value Reference Range Interpretation Comme nts HEMOGLOBIN A1c (test code = 96553) 5.3 % 4.2-5.6 TSH, THIRD [id number] 05:28:35* Test Item Value Reference Range Interpretation Comme nts TSH, THIRD GENERATION (test code = 2821) 0.751 UIU/ML 0.400-4.100 CBC W/AUTO DIFF WITH [id number] 04:48:55* Test Item Value Reference Range Interpretation Comme nts WBC (test code = 1001) 6.9 K/UL 3.5-11.0 RBC (test code = 1002) 4.72 M/UL 3.80-5.40 HEMOGLOBIN (test code = 1003) 14.2 G/DL 11.5-15.5 HEMATOCRIT (test code = 1004) 39.8 % 34.0-45.0 MCV (test code = 1005) 84.3 fL 80.0-99.0 MCH (test code = 1006) 30.1 PG 25.0-33.0 MCHC (test code = 1007) 35.7 G/DL 31.0-36.0 RDW (test code = 1038) 12.8 % 11.5-15.0 NEUTROPHILS (test code = 1008) 57.8 % LYMPHOCYTES (test code = 1010) 34.4 % MONOCYTES (test code = 1011) 5.8 % EOSINOPHILS (test code = 1012) 1.3 % BASOPHILS (test code = 1013) 0.6 % IMMATURE GRANULOCYTES (test code = 1036) 0.1 % NUCLEATED RBCS (test code = 1065) 0.0 /100 WBC'S See_Comment [Automated messa ge] The system which generated this result transmitted reference range: 0.0. The reference range was not used to interpret this result as normal/abnormal. PLATELET COUNT (test code = 1015) 277 K/UL 130-400 ABSOLUTE NEUTROPHILS (test code = 1066) 4.00 K/UL 1.50-7.50 ABSOLUTE LYMPHOCYTES (test code = 1067) 2.38 K/UL 1.00-4.00 ABSOLUTE MONOCYTES (test code = 1068) 0.40 K/UL 0.20-1.00 ABSOLUTE EOSINOPHILS (test code = 1040) 0.09 K/UL 0.00-0.50 ABSOLUTE BASOPHILS (test code = 1069) 0.04 K/UL 0.00-0.20 ABS IMMATURE GRANULOCYTES (test code = 1020) 0.01 K/UL 0.00-0.10 ABS NUCLEATED RBCS (test code = 44707) 0.02 K/UL 0.00-0.11 HEPATITIS PANEL, [id number] 04:33:01* Test Item Value Reference Range Interpretation Comme nts HEPATITIS A IgM (test code = 79555) NON-REACTIVE NON-REACTIVE HEPATITIS B CORE IgM (test code = 4644) NON-REACTIVE NON-REACTIVE HEPATITIS B SURF AG (test code = 2739) NON-REACTIVE NON-REACTIVE HEPATITIS C ANTIBODY (test code = 4675) NON-REACTIVE NON-REACTIVE INTERPRETATION HEPATITIS A: (test code = 2552) (NOTE) Hepatitis A serology shows no evidence of acute hepatitis A. INTERPRETATION HEPATITIS B: (test code = 86347) (NOTE) Hepatitis B serology shows no evidence of acute hepatitis B andno indication of exposure to hepatitis B virus in the previous venkat eight months. INTERPRETATION HEPATITIS C: (test code = 25930) (NOTE) Hepatitis C serology shows no evidence of exposure to hepatitisC virus at this time. It can take up to 12 months after exposure tothe hepatitis C virus for antibodies to become detectable in the blood in certain patients. HEPATITIS B SURFACE [id number] 04:33:01* Test Item Value Reference Range Interpretation Comme nts HEPATITIS B SURFACE AB (test code = 2737) REACTIVE NON-REACTIVE A UNLESS OTH ERWISE INDICATED, ALL TESTING PERFORMED [facility] [address] [place] [address] REGISTERED NURSES: DOMENICA ARELLANO M.D. CLIA NUMBER [id number] [facility] [place]. [id number] COMPREHENSIVE METABOLIC [id number] 03:15:27* Test Item Value Reference Range Interpretation Comme nts GLUCOSE (test code = 2217) 88 MG/DL 70-99 BUN (test code = 2208) 9 MG/DL 6-20 CREATININE (test code = 2214) 0.65 MG/DL 0.60-1.30 eGFR (2020 CKD-EPI) (test code = 59263) 122 ML/MIN/1.73 >60 CALC BUN/CREAT (test code = 2234) 14 RATIO 6-28 SODIUM (test code = 2230) 141 MEQ/L 133-146 POTASSIUM (test code = 2227) 4.4 MEQ/L 3.5-5.4 CHLORIDE (test code = 2214) 103 MEQ/L 95-107 CARBON DIOXIDE (test code = 2205) 28 MEQ/L 19-31 CALCIUM (test code = 2208) 9.9 MG/DL 8.5-10.5 PROTEIN, TOTAL (test code = 2228) 7.3 G/DL 6.1-8.3 ALBUMIN (test code = 2200) 4.5 G/DL 3.5-5.2 CALC GLOBULIN (test code = 2239) 2.8 G/DL 1.9-3.7 CALC A/G RATIO (test code = 2233) 1.6 RATIO 1.0-2.6 BILIRUBIN, TOTAL (test code = 2206) 0.4 MG/DL See_Comment [Automated me ssage] The system which generated this result transmitted reference range: <=1.2. The reference range was not used to interpret this result as normal/abnormal. ALKALINE PHOSPHATASE (test code = 2203) 71 U/L 40-112 AST (test code = 2217) 9 U/L 9-40 ALT (test code = 2218) 14 U/L 5-40 LIPID [id number] 03:15:27* Test Item Value Reference Range Interpretation Comme nts CHOLESTEROL (test code = 2209) 207 MG/DL <200 H TRIGLYCERIDES (test code = 2231) 81 MG/DL <150 HDL CHOLESTEROL (test code = 2219) 45 MG/DL >39 CALC LDL CHOL (test code = 2236) 144 MG/DL <100 H NOTE: CALCULATED LDL IS BASED ON CARMEN-JACKMAN METHOD WHICHINCLUDES ADJUSTABLE TRIGLYCERIDE:VLDL CHOLESTEROL RATIO.THIS FACTOR VARIES BY MEASURED TRIGLYCERIDE AND NON-HDLCHOLESTEROL CONCENTRATIONS WITH INCREASED CALCULATED LDL SEENIN HIGHER TRIGLYCERIDE OR LOWER NON-HDL SPECIMENS. FOR MOREINFORMATION, SEE CLIENT ANNOUNCEMENT AT [email or web address] RISK RATIO LDL/HDL (test code = 223) 3.20 RATIO <3.22 SARS-CoV-2 (COVID-19) by RT-PCR (HIGH RISK)2020-02-21 00:00:00* Test Item Value Reference Range Interpretation Comme nts SARS-CoV-2 INTERPRETATION (test code = 99424) NEGATIVE SOURCE (test code = 06695) NASOPHARYNGEAL Notes Date/Time Note Provider Source 2023-03-02 15:12:03 jcykqENWOk/aPMf+gTbVGdnsM1DTTsw7n jFKaUDvOPH7Cwt23e42EPgdsGW5x3DN95 28-02-25T15:12:03 Chief ComplaintPatient presents withFoot PainLeft foot pain. 37220-0Ydqbq SkcbMR0933-51-05H22:12:58Nurse NoteTXT1.2.840.702084.1.13.131.2. 7.2.401874|[id number] for patient szau03121-9Aziyj NoteLNNARRATIVEFormatted C-CDA narrative [id number] Cunningham [facility] [facility] [id number] BXCV0482-08-36N01:12:581.2.840.11 4350.1.72.3.15|1.2.840.112883.1.1 3.131.2.7.2.727879_[id number] Beau Chris [facility] 2023-02-13 13:35:26 MqhFMJjILfdfYg9oh8aCII0SDQsClskvv ZqjFXOD5NHtcIZz8+Mh9QPpej/dXVlC20 29-02-08T13:35:26 Chief ComplaintPatient presents withVaginal [place] [address]-2Rhjzf NdxjMP7243-29-15I70:35:46Nurse NoteTXT1.2.840.731715.1.13.131.2. 7.2.065483|[id number] for patient itqa97296-0Qgnft NoteLNNARRATIVEFormatted C-CDA narrative text[id number] RKPD5472-59-22A66:35:461.2.840.11 4350.1.72.3.15|1.2.840.977290.1.1 3.131.2.7.2.727879_[id number] [facility] 2022-10-17 09:07:35 9OoM3Su6tMW/zlWngldejJaI8jqLeUFr/ O9zCoaQPbZ3tc0LnpcYKq/IYdnL6iOI43 29-10-11T09:07:35 Chief Complaint Patient presents with Consultation Right ankle injury. It happened last 10/14/22 it twisted her ankle outside at the parking lot. Seen at Urgent care. She have images at her cell phone. Maryellen Pickeringer 95154-9Jxpcq PsmiGP4948-69-50O53:08:42Nurse NoteTXT1.2.840.868043.1.13.131.2. 7.2.827990|[id number] for patient matb42092-2Jydnr NoteLN[id number] VDDQ1399-67-39L67:08:421.2.840.11 4350.1.72.3.15|1.2.840.772831.1.1 3.131.2.7.2.727879_[id number] [facility] 2022-09-01 10:20:11 0iV0kuNKEvkxJELUT3xC7Y1Bm1XyQcgzv NJiCYvEL8WN8nTdhgHNCVyr58ansmaj48 28-08-27T10:20:11 Chief Complaint Patient presents with Follow-up 5 months f/u lt foot pain pt stated she having constant pain pt stated she is on her feet all day due to her job [place] [address]-5Ddlhu NcaeMW4980-91-06Q24:24:54Nurse NoteTXT1.2.840.857467.1.13.131.2. 7.2.811489|[id number] for patient [facility] [facility] [id number] DQEI4321-53-01K23:24:541.2.840.11 4350.1.72.3.15|1.2.840.118554.1.1 3.131.2.7.2.727879_[id number] [facility]"
[2023-03-04 21:43] LABS: Absolute Lymphocytes (CBC) 3.1 K/uL (0.7-4.9); Hematocrit 34.2 % (36.0-45.0); Lymphocytes % 34.4 % (15.3-44.8); MCV 86.1 fL (80-100); MPV 8.5 fL (7.6-11.3); Platelets 302 thou/uL (152-406); RBC Red Blood Cell Count 3.97 M/uL (3.86-4.86)
--- NOTE | 2023-03-04 21:54 | RAD REPORT ---
EXAM DESCRIPTION: US - Transvaginal Study Probe - 03/04/2023 9:46 pm CLINICAL HISTORY: pelvic pain;Vaginal bleeding COMPARISON: No comparisons FINDINGS: The uterus is normal in size, shape and echotexture. The uterus measures 8 x 4.8 x 4.7 cm with volume of 95 cc . The endometrial stripe measures 6 mm, within normal limits Both ovaries are normal in size, shape and echotexture. The right ovary measures 2.7 x 2.1 x 3 cm wi th volume of 8.7 cc. The left ovary measures 2.8 x 2.7 x 2.6 cm with volume of 10.3 cc. No ovarian o r parovarian lesions. No adnexal masses. Normal Doppler blood flow was demonstrated to both ovaries. No significant pelvic ascites. IMPRESSION: Unremarkable study.Bilateral ovarian blood flow.
[2023-03-04 22:09] LABS: BUN Blood Urea Nitrogen 8 mg/dL (7-18); Bicarbonate 26 mEq/L (21-32); Glomerular Filtration Rate 122 ml/min (=/>90); Glucose Level 98 mg/dL (74-106); Potassium 3.4 mEq/L (3.5-5.1); Sodium Level 139 mEq/L (136-145)
[2023-03-04 22:10] LABS: HCG, Quantitative < 1 mIU/mL (1-3)
[2023-03-04 22:19] LABS: Specific Gravity 1.016 (1.005-1.030)
--- NOTE | 2023-03-04 22:41 | EDPHYS ---
Physician Documentation [facility] Name: Kyra Dave Age: 32 yrs Sex: Female : 1990 Arrival Date: 03/04/2023 Time: 20:14 Bed 4 Private MD: ED Physician Masoud Lee HPI: 03/04 21:00 This 32 yrs old Female presents to ER via Ambulatory with complaints of Pelvic Pain, cp Vaginal Bleeding. 21:00 The patient presents with vaginal bleeding that is heavy, with clots. cp 21:00 Onset: The symptoms/episode began/occurred last week, . Associated signs and cp symptoms: Pertinent positives: cramping, Pertinent negatives: dysuria, fever, vomiting. Severity of symptoms: in the emergency department the symptoms are unchanged, despite home interventions. The patient's method of control includes nothing. Patient reports persistent mild vaginal bleeding since starting Ozempic last year. Vaginal Bleeding became heavy with passage of clots last . Denies dizziness, lightheaded, syncope. 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 - Social history:: Smoking status: Reported history of juuling and/or vaping. ROS: 21:05 : Positive for vaginal bleeding, Negative for urinary symptoms, cp 21:05 Eyes: Negative for injury, pain, redness, and discharge, cp 21:05 Constitutional: Negative for body aches, chills, fever, 21:05 ENT: Negative for drainage from ear(s), ear pain, difficulty swallowing, difficulty handling secretions, 21:05 Cardiovascular: Negative for chest pain, edema, palpitations, 21:05 Respiratory: Negative for cough, shortness of breath, wheezing, 21:05 Abdomen/GI: Positive for abdominal cramps, 21:05 Neuro: Negative for altered mental status, dizziness, headache, syncope, near syncope, weakness, 21:05 All other systems are negative, Exam: 21:10 Constitutional: The patient appears in no acute distress, alert, awake, non-toxic, well cp developed, well nourished, obese, 21:10 Head/Face: Normocephalic, atraumatic. cp 21:10 Eyes: Periorbital structures: appear normal, Conjunctiva: normal, no exudate, no injection, Sclera: no appreciated abnormality, Lids and lashes: appear normal, bilaterally, 21:10 ENT: External ear(s): are unremarkable, Nose: is normal, Mouth: Lips: moist, Oral mucosa: moist, Posterior pharynx: Airway: no evidence of obstruction, patent, 21:10 Chest/axilla: Inspection: normal, 21:10 Cardiovascular: Rate: normal, Rhythm: regular, 21:10 Respiratory: the patient does not display signs of respiratory distress, Respirations: normal, no use of accessory muscles, no retractions, labored breathing, is not present, Breath sounds: are clear throughout, no decreased breath sounds, no stridor, no wheezing, 21:10 Abdomen/GI: Inspection: abdomen appears normal, Bowel sounds: active, all quadrants, Palpation: soft, in all quadrants, mild abdominal tenderness, in the right lower quadrant and left lower quadrant, rebound tenderness, is not appreciated, involuntary guarding, is not appreciated, 21:10 Back: pain, is absent, ROM is normal, 21:10 Neuro: Orientation: to person, place \T\ time. Mentation: is normal, Cerebellar function: is grossly normal, Motor: moves all fours, strength is normal, Sensation: is normal, Vital Signs: 20:26 BP 141 / 91; Pulse 79; Resp 18 S; Temp 98.3(O); Pulse Ox 100% on R/A; Weight 119.75 kg as6 (R); Height 5 ft. 7 in. (R); Pain 7/10; 21:30 BP 117 / 75; Pulse 74; Resp 17 S; Pulse Ox 100% on R/A; ha1 22:30 BP 135 / 73; Pulse 72; Resp 17 S; Pulse Ox 100% on R/A; ha1 20:26 Body Mass Index 41.35 (119.75 kg, 170.18 cm) as6 20:26 Pain Scale: Adult as6 MDM: 20:31 Patient medically screened. cp 22:40 Data reviewed: vital signs, nurses notes, lab test result(s), radiologic studies, cp ultrasound. 22:40 Differential diagnosis: ectopic , endometriosis, menometrorrhagia, molar cp preganancy, pelvic inflammatory disease, ruptured ectopic , uterine fibroids, urinary tract infection. I considered the following discharge prescriptions or medication management in the emergency department Medications were administered in the Emergency Department. See MAR. Counseling: I had a detailed discussion with the patient and/or guardian regarding the historical points, exam findings, and any diagnostic results supporting the discharge/admit diagnosis, lab results, radiology results, the need for outpatient follow up, an OB/Gyne specialist, to return to the emergency department if symptoms worsen or persist or if there are any questions or concerns that arise at home. 03/04 20:47 Order name: Abo/rh Typing; Complete Time: 22:24 cp 03/04 20:47 Order name: Basic Metabolic Panel; Complete Time: 22:24 cp 03/04 22:24 Interpretation: Normal except: K 3.4; CL 108; CA 8.1. cp 03/04 20:47 Order name: CBC with Diff; Complete Time: 22:05 cp 03/04 22:05 Interpretation: Normal except: HGB 11.8; HCT 34.2. cp 03/04 20:47 Order name: Test, Urine; Complete Time: 22:25 cp 03/04 20:47 Order name: Quantitative Hcg; Complete Time: 22:24 cp 03/04 21:47 Order name: Transvaginal Study Probe; Complete Time: 22:05 EDMS 03/04 20:41 Order name: Orthostatics; Complete Time: 21:18 cp 03/04 20:47 Order name: IV Saline Lock; Complete Time: 21:18 cp 03/04 20:47 Order name: Labs collected and sent; Complete Time: 21:18 cp 03/04 20:47 Order name: NPO; Complete Time: 21:18 cp Administered Medications: 21:37 Drug: NS 0.9% IV 1000 ml IV at 1 bolus Per protocol; 1000 mL bolus Route: IV; Rate: 1 ha1 bolus; Site: left antecubital; 22:59 Follow up: Response: No adverse reaction; IV Status: Completed infusion; IV Intake: ha1 1000ml 22:19 Drug: Ketorolac IVP 15 mg IVP once; if test negative Route: IVP; Site: left ha1 antecubital; 22:59 Follow up: Response: No adverse reaction; Marked relief of symptoms; Pain is decreased ha1 22:50 Drug: Potassium PO Effervescent Tablet 25 mEq PO once; dissolve in 4 ounces of water or ha1 juice Route: PO; 22:59 Follow up: Response: No adverse reaction ha1 Disposition Summary: 03/04/23 22:40 Discharge Ordered Notes: Location: Home cp Problem: new cp Symptoms: have improved cp Condition: Stable cp Diagnosis - Abnormal uterine and vaginal bleeding, unspecified cp Followup: cp - With: Private Physician - When: 1 week - Reason: Recheck today's complaints Discharge Instructions: - Discharge Summary Sheet cp - Abnormal Uterine Bleeding cp - Dysfunctional Uterine Bleeding cp Forms: - Medication Reconciliation Form cp - Thank You Letter cp - Antibiotic Education cp - Prescription Opioid Use cp - Patient Portal Instructions cp - Leadership Thank You Letter cp Prescriptions: - Ibuprofen 800 mg Oral Tablet - take 1 tablet ORAL route every 8 hours As needed take with food; 30 tablet; cp Refills: 0, Product Selection Permitted Signatures: Dispatcher [employer] EDMS Zenon Vega PA PA cp Jemal Valverde RN RN as6 Edita Garcia RN RN ha1 Corrections: (The following items were deleted from the chart) 21:47 20:47 Pelvis Complete+US.RAD.BRZ ordered. EDMS EDMS
--- NOTE | 2023-03-04 22:41 | ER ---
Nurse's Notes [facility] Name: Kyra Dave Age: 32 yrs Sex: Female : 1990 Arrival Date: 03/04/2023 Time: 20:14 Bed 4 Private MD: Diagnosis: Abnormal uterine and vaginal bleeding, unspecified Presentation: 03/04 20:28 Chief complaint: Patient states: heavy vaginal bleeping and cramping since . pt as6 reports filling a pad every hour. Coronavirus screen: At this time, the client does not indicate any symptoms associated with coronavirus-19. Ebola Screen: No symptoms or risks identified at this time. Initial Sepsis Screen: Does the patient meet any 2 criteria? No. Patient's initial sepsis screen is negative. Does the patient have a suspected source of infection? No. Patient's initial sepsis screen is negative. Risk Assessment: Do you want to hurt yourself or someone else? Patient reports no desire to harm self or others. Onset of symptoms was March 01, 2023. 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 - Social history:: Smoking status: Reported history of juuling and/or vaping. Screenin:38 [facility] ED Fall Risk Assessment (Adult) History of falling in the last 3 months, vc1 including since admission No falls in past 3 months (0 pts) Confusion or Disorientation No (0 pts) Intoxicated or Sedated No (0 pts) Impaired Gait No (0 pts) Mobility Assist Device Used No (0 pt) Altered Elimination No (0 pt) Score/Fall Risk Level 0 - 2 = Low Risk Oriented to surroundings, Maintained a safe environment, Educated pt \T\ family on fall prevention, incl call for assistance when getting out of bed. Abuse screen: Denies threats or abuse. Nutritional screening: No deficits noted. Tuberculosis screening: No symptoms or risk factors identified. Assessment: 20:30 General: Appears uncomfortable, Behavior is calm, cooperative. Pain: Complains of pain ha1 in pelvis Pain does not radiate. Pain currently is 9 out of 10 on a pain scale. Quality of pain is described as throbbing, Pain began gradually, Alleviated by medications. Neuro: Level of Consciousness is awake, alert, obeys commands, Oriented to person, place, time, situation. Cardiovascular: Capillary refill < 3 seconds Patient's skin is warm and dry. Respiratory: Airway is patent Respiratory effort is even, unlabored, Respiratory pattern is regular, symmetrical. GI: No signs and/or symptoms were reported involving the gastrointestinal system. : Urine is clear, Reports pain in bilateral lower quadrant(s) since vaginal bleeding that is heavy flow. Derm: Skin is pink, warm \T\ dry. Musculoskeletal: Circulation, motion, and sensation intact. Range of motion: intact in all extremities. 21:30 Reassessment: Patient and/or family updated on plan of care and expected duration. Pain ha1 level reassessed. Patient is alert, oriented x 3, equal unlabored respirations, skin warm/dry/pink. 22:30 Reassessment: Patient and/or family updated on plan of care and expected duration. Pain ha1 level reassessed. Patient is alert, oriented x 3, equal unlabored respirations, skin warm/dry/pink. Patient states feeling better. Patient states symptoms have improved. 23:00 Reassessment: No changes from previously documented assessment. Patient and/or family vc1 updated on plan of care and expected duration. Pain level reassessed. Patient is alert, oriented x 3, equal unlabored respirations, skin warm/dry/pink. Vital Signs: 20:26 BP 141 / 91; Pulse 79; Resp 18 S; Temp 98.3(O); Pulse Ox 100% on R/A; Weight 119.75 kg as6 (R); Height 5 ft. 7 in. (R); Pain 7/10; 21:30 BP 117 / 75; Pulse 74; Resp 17 S; Pulse Ox 100% on R/A; ha1 22:30 BP 135 / 73; Pulse 72; Resp 17 S; Pulse Ox 100% on R/A; ha1 20:26 Body Mass Index 41.35 (119.75 kg, 170.18 cm) as6 20:26 Pain Scale: Adult as6 ED Course: 03/03 20:45 Inserted saline lock: 20 gauge in left antecubital area, using aseptic technique. Blood ha1 collected. 03/04 20:18 Patient arrived in ED. [email or web address] 20:22 Zenon Vega PA is PHCP. cp 20:22 Masoud Lee MD is Attending Physician. cp 20:28 Arm band placed on. as6 20:29 Triage completed. as6 20:30 Patient has correct armband on for positive identification. Bed in low position. Call vc1 light in reach. Client placed on continuous cardiac and pulse oximetry monitoring. NIBP monitoring applied. 21:18 Abo/rh Typing Sent. ha1 21:18 Basic Metabolic Panel Sent. ha1 21:18 CBC with Diff Sent. ha1 21:18 Test, Urine Sent. ha1 21:18 Quantitative Hcg Sent. ha1 21:47 Transvaginal Study Probe In Process Unspecified. EDMS 23:00 No provider procedures requiring assistance completed. ha1 23:01 IV discontinued, intact, bleeding controlled, No redness/swelling at site. Pressure vc1 dressing applied. Administered Medications: 21:37 Drug: NS 0.9% IV 1000 ml IV at 1 bolus Per protocol; 1000 mL bolus Route: IV; Rate: 1 ha1 bolus; Site: left antecubital; 22:59 Follow up: Response: No adverse reaction; IV Status: Completed infusion; IV Intake: ha1 1000ml 22:19 Drug: Ketorolac IVP 15 mg IVP once; if test negative Route: IVP; Site: left ha1 antecubital; 22:59 Follow up: Response: No adverse reaction; Marked relief of symptoms; Pain is decreased ha1 22:50 Drug: Potassium PO Effervescent Tablet 25 mEq PO once; dissolve in 4 ounces of water or ha1 juice Route: PO; 22:59 Follow up: Response: No adverse reaction ha1 Medication: 21:39 VIS not applicable for this client. vc1 Intake: 22:59 IV: 1000ml; Total: 1000ml. ha1 Outcome: 22:40 Discharge ordered by . cp 23:01 Discharged to home ambulatory, vc1 23:01 Condition: good 23:01 Discharge instructions given to patient, Instructed on discharge instructions, follow up and referral plans. medication usage, Demonstrated understanding of instructions, follow-up care, medications, Prescriptions given X 1, 23:02 Patient left the ED. vc1 Signatures: Dispatcher [employer] EDMS Zenon Vega PA PA cp Jeffries, Jennifer [email or web address] Jemal Valverde RN RN as6 Eun Billingsley RN RN vc1 Edita Garcia RN RN ha1 Corrections: (The following items were deleted from the chart) 21:40 19:00 Patient has correct armband on for positive identification. Bed in low position. vc1 Call light in reach. vc1 21:40 19:00 Client placed on continuous cardiac and pulse oximetry monitoring. NIBP vc1 monitoring applied. vc1
[2023-03-05 00:32] VITALS: BP 135/73; TEMP 98.3; O2SAT 100
== END ==
LOC: ER 20:14
DX: N93.9 Abnormal uterine and vaginal bleeding, unspecified (principal)
CPT/HCPCS: 85025; 80048; 36415; 86900; 81025; 86901; 84702; 76830; J7030

== ENCOUNTER 2023-10-23 17:51 | Emergency (ER) | payer OTHER ==
--- OUTSIDE RECORDS SUMMARY | 2023-10-23 17:55 | XMS REPORT | Continuity of Care Document ---
Author Name Unknown Address [address] [facility] [place] [address] [facility] thconnect Address [address] [facility] [address] [place] [address] Care Team Providers Care Regulatory Compliance Officer Name Role Phone Judy Bradley Primary Care Physician ASH ROQUE Attending Clinician Unavailable LAB47 Attending Clinician Unavailable KARLY QUESADA Attending Clinician UnavailDAMON Doan Attending Clinician Unavaila DANO Polanco Attending Clinician UnavailARELI Pereira Attending Clinician Unavaila SAWYER Tompkins Attending Clinician Unavailable MD MIGUEL Attending Clinician Unavailab PIEDAD Pagan Attending Clinician Unavailable SHA JUAN Attending Clinician Unavailable KATIA AVALOS Attending Clinician Unavailable RAVEN MCGRAW Attending Clinician Unavailable SAMM CUEVA Attending Clinician Unavailable LISA WARNER Attending Clinician Unavailable KRISTY CASTORENA Attending Clinician UnaCOURTNEY Clancy Attending Clinician Unavailable HARIKA BOB Attending Jefia latosha Unavailable LAURENT SCHMIDT Attending Clinician Unavailab MARILU Spangler Attending Clinician Unavailable KENDALL HOLDEN Attending Clinician Unavailable JUVENAL LICONA Attending Clinician Leandro Puri RN, Mireille Rodrigez Attending Clinician Unavailab MONET Yeh Attending Clinician Unavailable Monet Turner PA-C Attending Clinician [phone] Unknown, Attending Attending Clinician Unavailab le Doctor Unassigned, Sperry Attending Clinician U navailable LORA, AMPARO S Attending Clinician Unavailable Lora PAC, Ampaor S Attending Clinician Chica Cardenas NP Attending Clinician CRISTIANO DOMINGUEZ Attending Clinician Unavailable Payers Payer Name Policy Type Policy Number Effective Date Expirati on Date Source AELEONIDES ALDRICH ALISHA S O [employer] 94 ON 9 [id number] 2022 00:00:00 Problems Condition Name Condition Details Condition Category Status Onset Date Resolution Date Last Treatment Date Treating Clinician Comments Source Obesity, Class III, BMI 40-49.9 (morbid obesity) Obesity, Class III, BMI 40-49.9 (morbid obesity) Disease Active 10-17 00:00: 00 Harika Manzanares - Externa l No known active problems No known active problems Disease Univers [facility] Allergies, Adverse Reactions, Alerts Allergy Name Allergy Type Status Severity Reaction(s) Onset Date Inactive Date Treating Clinician Comments Source NO KNOWN ALLERGIE S Drug Class Active [facility] Social History Social Habit Start Date Stop Date Quantity Comments Source Gender identity 2022-03-08 17:35:28 Identifies as female gender (finding) Harika Manzanares - External Sexual orientation 2022-03-08 17:35:28 Heterosexual (finding) Harika Manzanares - External History of tobacco use Cigarette Smoker Harika rosario - External Alcoholic beverage intake 2023-09-21 00:00:00 2023-09-21 00:00:00 .71 /d Harika Manzanares - External Alcohol Comment 2023-09-21 00:00:00 2023-09-21 00:00:00 1x weekly Harika Manzanares - External Cigarettes smoked current (pack per day) - Reported 2023-06-18 00:00:00 2023-06-18 00:00:00 Harika Manzanares - External Cigarette pack-years 2023-06-18 00:00:00 2023-06-18 00:00:00 Harika Manzanares - External Alcohol intake 2023-03-02 00:00:00 2023-03-02 00:00:00 .71 /d Harika Manzanares - External History of Social function 2022-10-23 00:00:00 2022-10-23 00:00:00 Harika Manzanares - External Tobacco Comment 2022-10-17 00:00:00 2022-10-17 00:00:00 She does vaping. Harika Manzanares - External Tobacco use and exposure 2022-03-08 00:00:00 2022-03-08 00:00:00 Smokeless tobacco non-user Harika Manaznares - External Exposure to SARS-CoV-2 (event) 2021-09-23 00:00:00 2021-10-03 19:50:00 Yes [facility] Sex assigned at 1990 00:00:00 1990 00:00:00 F Harika Manzanares - External Smoking Status Start Date Stop Date Source Tobacco smoking consumption unknown [facility] Ex-smoker 2023-06-18 00:00:00 2023-06-18 00:00:00 Harika Barragan Never smoked tobacco Harika Manzanares - External Medications Ordered Medication Name Filled Medication Name Start Date Stop Date Current Medication? Ordering Clinician Indication Dosage Frequency Signature (SIG) Comments Components Source Phentermine HCl 15 MG oral Capsule 09-20 00:00: 00 10-21 04:59 :00 Yes [id number] 15mg Take 1 capsule (15 mg total) by mouth every morning. Harika rodriguez Methylpredn isolone Acetate (Depo-Medro l) 40 mg/ml - Physician Administere d (J1030) 06-17 16:00: 00 06-17 16:00 :00 No [id number] 40mg 40 mg, Physician Administer ed, ONCE, 1 dose, On Sun06/18/23 at 1100 Harika rodriguez Norethindro ne Acetate 5 MG oral Tablet 3-04 00:00: 00 09-20 00:00 :00 No [id number] Take one tablet 3x/d x 3 days then twice daily x 2 days then daily.. Harika rodriguez Norgestimat e-Ethinyl Estradiol (Tri-Sprint ec) 0.18/0.215/ 0.25 MG-35 MCG oral Tablet -30 00:00: 00 09-20 00:00 :00 No 1{tbl} QD Take 1 tablet by mouth daily. Harika rodriguez medroxyPROG ESTERone Acetate (Provera) 10 MG oral Tablet - 00:00: 00 09-20 00:00 :00 No [id number] Take 1 tablet by mouth 3x/d then twice daily x 2 days then daily.. Harika rodriguez Methylpredn isolone Acetate (DEPO-MEDRO L) 40 mg/mL 03-02 22:15: 00 03-02 23:48 :00 No [id number] 40mg Harika rodriguez Norethindro ne Acetate (Aygestin) 5 MG oral Tablet 02-13 00:00: 00 Yes [id number] Take one tablet 3x/d x 3 days then twice daily x 2 days then daily.. Harika rodriguez Doxycycline Hyclate 100 MG oral Tablet 2022-02 00:00: 00 Yes [id number] 100mg Take 1 tablet (100 mg total) by mouth 2 times daily. Harika rodriguez Xulane 150-35 MCG/24HR transdermal PATCH WEEKLY 2022-02 00:00: 00 02-13 00:00 :00 No Harika rodriguez Semaglutide (0.25 or 0.5 mg/dose) 2 mg/3 mL SQ Solution Pen-Injecto r 10-31 00:00: 00 02-13 00:00 :00 No [id number] .25 mg weekly. Harika rodriguez Semaglutide -[facility] 0.25 MG/0.5ML Subcutaneou s Solution Auto-inject or 8-23 00:00: 00 11-16 00:00 :00 No [id number] 104 .25mg Inject 0.25 mg into the skin once a week. Harika rodriguez Methylpredn isolone Acetate (DEPO-MEDRO L) 40 mg/mL 09-01 16:15: 00 09-01 16:07 :00 No 49 40mg Harika rodriguez Ibuprofen (MOTRIN) 800 MG oral Tablet 09-01 00:00: 00 09-20 00:00 :00 No Harika rodriguez Liraglutide -Weight Management 18 MG/3ML subcutaneou s Solution Pen-injecto r 05-17 00:00: 00 08-10 00:00 :00 No [id number] .6mg Inject 0.1 mL (0.6 mg total) into the skin daily Harika rodriguez Semaglutide -Weight Management 0.25 MG/0.5ML subcutaneou s Solution Auto-inject or 05-16 00:00: 00 06-16 04:59 :00 No [id number] .25mg Inject 0.25 mg into the skin once a week Harika rodriguez Nitrofurant oin Monohyd Macro (Macrobid) 100 MG oral Capsule 3-13 00:00: 00 Yes [id number] 100mg Take 1 capsule (100 mg total) by mouth 2 times daily Harika rodriguez Meloxicam 7.5 MG oral Tablet 2-10 00:00: 00 08-10 00:00 :00 No 7.5mg QD Take 1 tablet (7.5 mg total) by mouth daily as needed for pain Harika rodriguez Rosuvastati n Calcium 10 MG oral Tablet 2-06 00:00: 00 05-16 00:00 :00 No [id number] 10mg Take 1 tablet (10 mg total) by mouth daily Harika rodriguez TAKE 1 CAPSULE BY MOUTH 3 TIMES A DAY WITH FOOD UNTIL FINISHED 08-19 00:00: 00 No 300 Dose Unknown 08-19 00:00: 00 No 50 TAKE 1 TABLET BY MOUTH EVERY DAY FOR 5 DAYS 08-13 00:00: 00 No 50 TAKE 1 TABLET BY MOUTH EVERY DAY 08-13 00:00: 00 No 35 mupirocin 2 % ointment 06-29 00:00: 00 Yes [id number] Apply to area(s) 3 (three) times daily. [facility] No known medications 08-05 22:00: 31 No [facility] Vital Signs Vital Name Observation Time Observation Value Comments S ource Systolic blood pressure 2023-09-21 20:13:00 114 mm[Hg] Harika Seybo ld - External Diastolic blood pressure 2023-09-21 20:13:00 76 mm[Hg] Harika ybo ld - External Heart rate 2023-09-21 20:13:00 96 /min Kelse y Seybold - External Body temperature 2023-09-21 20:13:00 37.06 Isabelle Harika Seybold - External Respiratory rate 2023-09-21 20:13:00 16 /min Harika Seybold - External Body height 2023-09-21 20:13:00 170.2 cm Josette ey Seybold - External Body weight 2023-09-21 20:13:00 118.933 kg Josette ey Seybold - External BMI 2023-09-21 20:13:00 41.07 kg/m2 Josette ey Seybold - External Body height 2023-06-18 15:25:00 170.2 cm Josette ey Seybold - External Body weight 2023-06-18 15:25:00 119.75 kg Josette ey Seybold - External BMI 2023-06-18 15:25:00 41.35 kg/m2 Josette ey Seybold - External Body weight 2023-03-02 21:11:00 119.931 kg Josette ey Seybold - External BMI 2023-03-02 21:11:00 41.41 kg/m2 Josette ey Seybold - External Systolic blood pressure 2023-02-13 19:33:00 122 mm[Hg] Harika Seybo ld - External Diastolic blood pressure 2023-02-13 19:33:00 80 mm[Hg] Harika Shafferybo ld - External Heart rate 2023-02-13 19:33:00 [...] blood pressure 2022-11-16 20:11:00 114 mm[Hg] Harika Shafferybo ld - External Diastolic blood pressure 2022-11-16 20:11:00 80 mm[Hg] Harika Camarilloo ld - External Heart rate 2022-11-16 20:11:00 90 /min Brucese y Seybold - External Body temperature 2022-11-16 20:11:00 36.83 Isabelle Harika Seybold - External Respiratory rate 2022-11-16 20:11:00 15 /min Harika Seybold - External Body weight 2022-11-16 20:11:00 120.657 [...] Body temperature 2022-08-10 18:26:00 37.11 Isabelle Harika Seybold - External Respiratory rate 2022-08-10 18:26:00 16 /min Harika Seybold - External Body height 2022-08-10 18:26:00 168.9 cm Josette ey Seybold - External Body weight 2022-08-10 18:26:00 118.661 kg Josette ey Seybold - External BMI 2022-08-10 18:26:00 41.59 kg/m2 Josette ey Seybold - External Oxygen saturation in Arterial blood by Pulse oximetry 2022-08-10 18:26:00 98 /min Harika Seybo ld - External Systolic blood pressure 2022-08-10 18:26:00 128 mm[Hg] Harika Seybo ld - External Diastolic blood pressure 2022-08-10 18:26:00 82 mm[Hg] Harika Seybo ld - External Heart rate 2022-08-10 18:26:00 89 /min Kelse y Seybold - External Systolic blood pressure 2022-05-16 19:40:00 126 mm[Hg] Harika Seybo ld - External Diastolic blood pressure 2022-05-16 19:40:00 85 mm[Hg] Harika Seybo ld - External Heart rate 2022-05-16 19:40:00 [...] External Heart rate 2022-03-08 22:04:00 86 /min Madhu y Seybold - External Body temperature 2022-03-08 22:04:00 37.17 Isabelle Harika Seybold - External Respiratory rate 2022-03-08 22:04:00 16 /min Harika Shafferybold - External Body height 2022-03-08 22:04:00 170.2 cm Josette roberson Seybold - External Body weight 2022-03-08 22:04:00 112.492 kg Josette roberson Seybold - External BMI 2022-03-08 22:04:00 38.84 kg/m2 Josette ey Seybold - External Systolic blood pressure 2021-10-04 01:03:00 124 mm[Hg] [facility] Diastolic blood pressure 2021-10-04 01:03:00 87 mm[Hg] [facility] Heart rate 2021-10-04 01:03:00 82 /min [facility] temperature 2021-10-04 01:03:00 37.06 Isabelle [facility] Respiratory rate 2021-10-04 01:03:00 18 /min [facility] Body height 2021-10-04 01:03:00 170.2 cm [facility] Body weight 2021-10-04 01:03:00 102.314 kg [facility] BMI 2021-10-04 01:03:00 35.33 kg/m2 [facility] Oxygen saturation in Arterial blood by Pulse oximetry 2021-10-04 01:03:00 98 /min [facility] Systolic blood pressure 2021-06-29 15:20:00 139 mm[Hg] [facility] Diastolic blood pressure 2021-06-29 15:20:00 76 mm[Hg] [facility] Heart rate 2021-06-29 15:20:00 90 /min [facility] Body temperature 2021-06-29 15:20:00 37.11 Isabelle [facility] Respiratory rate 2021-06-29 15:20:00 18 /min [facility] Body height 2021-06-29 15:20:00 170.2 cm [facility] Body weight 2021-06-29 15:20:00 104.327 kg [facility] BMI 2021-06-29 15:20:00 36.02 kg/m2 [facility] Oxygen saturation in Arterial blood by Pulse oximetry 2021-06-29 15:20:00 99 /min [facility] BP Systolic 2021-08-19 08:12:00 121 mm[Hg] BP [...] Clinicia n Source FOOT LEFT 2022-03-08 22:33:54 Marilu Choudhary Seybold - External POCT MOLECULAR STREP 2021-10-04 01:27:00 Unknown, Atte nding [facility] POCT MOLECULAR FLU 2021-10-04 01:13:00 Unknown, Attend ing [facility] ASSIGNMENT OF BENEFITS 2021-10-04 00:52:56 Docto r Unassigned, Sperry [facility] INCISION AND DRAINAGE 2021-06-29 15:54:04 Amparo Lora [facility] NOTICE OF PRIVACY PRACTICES 2021-06-29 15:04:20 Doctor Unassigned, Sperry [facility] CONSENT/REFUSAL FOR DIAGNOSIS AND TREATMENT 2021-06-29 15:03:59 Doctor Unassigned, Sperry [facility] Plan of Care Planned Activity Planned Date Details Comments Source Goal Plan of Care Note [code = 56620-4] Goal Plan of Care Note [code = 99487-7] Goal Plan of Care Note [code = 86556-9] Goal Plan of Care Note [code = 31585-7] Goal Plan of Care Note [code = 38637-2] Goal Plan of Care Note [code = 06763-6] Goal Plan of Care Note [code = 93924-6] Goal Plan of Care Note [code = 51997-6] Goal Plan of Care Note [code = 17131-5] Goal Plan of Care Note [code = 93090-6] Goal Plan of Care Note [code = 51801-4] Goal Plan of Care Note [code = 23841-8] Encounters Start Date/Time End Date/Time Encounter Type Admission Type Attending Clinicians Care Facility Care Department Encounter ID Source 2023-10-26 14:30:00 2023-10-26 14:30:00 Outpatient ASH ROQUE [id number] Harika Manzanares 2023-10-19 10:30:00 2023-10-19 10:30:00 Outpatient ASH ROQUE [id number] Harika Manzanares 2023-09-24 00:00:00 2023-09-24 00:00:00 Outpatient ASH ROQUE [id number] Harika Manzanares 2023-09-21 17:15:00 2023-09-21 17:15:00 Outpatient LAB47 HARIKA ORDAZ [id number] [facility] 2023-09-21 16:30:00 2023-09-21 16:30:00 Outpatient ASH ROQUE HARIKA ORDAZ [id number] [facility] 2023-09-21 10:30:00 2023-09-21 10:30:00 Outpatient ASH ROQUE HARIKA ORDAZ [id number] [facility] 2023-08-03 09:20:00 2023-08-03 09:20:00 Outpatient KARLY QUESADA HARIKA ORDAZ [id number] [facility] 2023-06-18 10:30:00 2023-06-18 10:30:00 Outpatient DATDAMON [id number] Harika [facility] 2023-06-18 10:15:00 2023-06-18 10:15:00 Outpatient HARIKA ORDAZ [id number] [facility] 2023-06-18 00:00:00 2023-06-18 00:00:00 Outpatient DATSHAHEENAK HARIKA ORDAZ [id number] [facility] 2023-06-17 00:00:00 2023-06-17 00:00:00 Outpatient DANO LIZARRAGA [id number] [facility] 2023-05-18 00:00:00 2023-05-18 00:00:00 Outpatient ARELI BORGES [id number] [facility] 2023-04-06 00:00:00 2023-04-06 00:00:00 Outpatient SAWYER SR [id number] [facility] 2023-03-30 14:30:00 2023-03-30 14:30:00 Outpatient SAWYER SR [id number] [facility] 2023-03-23 16:15:00 2023-03-23 16:15:00 Outpatient HARIKA ORDAZ [id number] Harika Manzanares 2023-03-05 00:00:00 2023-03-05 00:00:00 Outpatient MD HARIKA WOLF [id number] [facility] 2023-03-02 15:40:00 2023-03-02 15:40:00 Outpatient PIEDAD MARTIN HARIKA ORDAZ [id number] [facility] 2023-03-02 13:15:00 2023-03-02 13:15:00 Outpatient HARIKA ORDAZ [id number] [facility] 2023-03-02 00:00:00 2023-03-02 00:00:00 Outpatient ORIN SAWYER ORDAZ [id number] [facility] 2023-03-01 00:00:00 2023-03-01 00:00:00 Outpatient SAWYER SR [id number] [facility] 2023-02-26 09:50:00 2023-02-26 09:50:00 Outpatient SHA JUAN [id number] [facility] 2023-02-15 00:00:00 2023-02-15 00:00:00 Outpatient SAWYER SR [id number] [facility] 2023-02-13 14:30:00 2023-02-13 14:30:00 Outpatient HARMONY HARIKA ORDAZ [id number] [facility] 2023-02-13 13:45:00 2023-02-13 13:45:00 Outpatient ORIN SAWYER ORDAZ [id number] [facility] 2023-02-12 14:45:00 2023-02-12 14:45:00 Outpatient KATIA AVALOS [id number] [facility] 2023-02-12 11:00:00 2023-02-12 11:00:00 Outpatient RAVEN MCGRAW [id number] [facility] 2023-02-12 09:50:00 2023-02-12 09:50:00 Out[facility] SHA [facility]AN [id number] [facility] 2022-12-19 17:30:00 2022-12-19 17:30:00 Outpatient SAMM CUEVA [id number] [facility] 2022-12-19 09:50:00 2022-12-19 09:50:00 Outpatient PROVIDER, EDELJEFF HARIKA ORDAZ [id number] [facility] 2022-11-28 10:00:00 2022-11-28 10:00:00 Outpatient KRISTY CASTORENA HARIKA ORDAZ [id number] [facility] 2022-11-28 00:00:00 2022-11-28 00:00:00 Outpatient KRISTY CASTORENA HARIKA ORDAZ [id number] [facility] 2022-11-28 00:00:00 2022-11-28 00:00:00 Outpatient HARIKA ORDAZ [id number] [facility] 2022-11-16 16:15:00 2022-11-16 16:15:00 Outpatient LAB HARIKA ORDAZ [id number] [facility] 2022-[facility]-16 15:30:00 2022-11-16 15:30:00 Outpatient JONY ARELIKEVIN ORDAZ [id number] [facility] 2022-11-09 00:00:00 2022-11-09 00:00:00 Outpatient KRISTY CASTORENA [facility] ORDAZ [id number] [facility] 2022-10-31 00:00:00 2022-10-31 00:00:00 Outpatient LUIS MANUELGRICELAURABill ORDAZ [id number] [facility] 2022-10-17 08:50:00 2022-10-17 08:50:00 Outpatient KELL, FADUMOGASTON ORDAZ [id number] [facility] 2022-10-17 08:40:00 2022-10-17 08:40:00 Outpatient HARIKA ORDAZ [id number] [facility] 2022-10-17 00:00:00 2022-10-17 00:00:00 Outpatient LUIS MANUELGRICELFADUMOGASTON ORDAZ [id number] [facility] 2022-10-17 00:00:00 2022-10-17 00:00:00 Outpatient KELL, AURAO HARIKA ORDAZ [id number] [facility] 2022-10-16 00:00:00 2022-10-16 00:00:00 Outpatient KRISTY CASTORENA HARIKA [id number] [facility] 2022-09-27 16:45:00 2022-09-27 16:45:00 Outpatient COURTNEY LEON HARIKA ORDAZ [id number] [facility] 2022-09-01 10:50:00 2022-09-01 10:50:00 Outpatient SHA JUAN HARIKA ORDAZ [id number] [facility] 2022-09-01 00:00:00 2022-09-01 00:00:00 Outpatient HARIKA BOB [id number] [facility] 2022-08-10 14:45:00 2022-08-10 14:45:00 Outpatient LABFernie ORDAZ [id number] [facility] 2022-08-10 14:00:00 2022-08-10 14:00:00 Outpatient LAURENT SCHMIDT [id number] [facility] 2022-07-20 09:25:00 2022-07-20 09:25:00 Outpatient LABFernie ORDAZ [id number] [facility] 2022-07-19 00:00:00 2022-07-19 00:00:00 Outpatient MD HARIKA WOLF [id number] [facility] 2022-07-14 15:15:00 2022-07-14 15:15:00 Outpatient MARILU CHOUDHARY [id number] [facility] 2022-06-23 16:30:00 2022-06-23 16:30:00 Outpatient HARIKA ORDAZ [id number] [facility] 2022-06-19 00:00:00 2022-06-19 00:00:00 Outpatient DANO LIZARRAGA [id number] [facility] 2022-06-19 00:00:00 2022-06-19 00:00:00 Outpatient HARIKA ORDAZ [id number] [facility] 2022-06-16 00:00:00 2022-06-16 00:00:00 Outpatient MARILU CHOUDHARY [id number] [facility] 2022-06-14 13:15:00 2022-06-14 13:15:00 Outpatient HARIKA ORDAZ [id number] [facility] 2022-06-14 00:00:00 2022-06-14 00:00:00 Outpatient DANO LZIARRAGA HARIKA ORDAZ [id number] [facility] 2022-06-13 13:00:00 2022-06-13 13:00:00 Outpatient HARIKA ORDAZ [id number] [facility] 2022-06-13 00:00:00 2022-06-13 00:00:00 Outpatient MARILU CHOUDHARY [id number] [facility] 2022-05-31 00:00:00 2022-05-31 00:00:00 Outpatient DANO LIZARRAGA HARIKA ORDAZ [id number] [facility] 2022-05-26 00:00:00 2022-05-26 00:00:00 Outpatient MARILU CHOUDHARY [id number] [facility] 2022-05-22 00:00:00 2022-05-22 00:00:00 Outpatient MARILU CHOUDHARY [id number] [facility] 2022-05-16 14:00:00 2022-05-16 14:00:00 Outpatient MARILU CHOUDHARY [id number] [facility] 2022-05-16 00:00:00 2022-05-16 00:00:00 Outpatient MARILU CHOUDHARY [id number] [facility] 2022-05-03 00:00:00 2022-05-03 00:00:00 Outpatient MARILU CHOUDHARY [id number] [facility] 2022-04-28 14:30:00 2022-04-28 14:30:00 Outpatient PIEDAD MARTIN [id number] [facility] 2022-04-17 10:30:00 2022-04-17 10:30:00 Outpatient KENDALL HOLDEN [id number] [facility] 2022-04-14 09:50:00 2022-04-14 09:50:00 Outpatient SHA JUAN HARIKA ORDAZ [id number] [facility] 2022-04-10 14:50:00 2022-04-10 14:50:00 Outpatient DANO LIZARRAGA HARIKA ORDAZ [id number] [facility] 2022-04-10 14:15:00 2022-04-10 14:15:00 Outpatient HARIKA ORDAZ [id number] [facility] 2022-04-10 09:20:00 2022-04-10 09:20:00 Outpatient DANO LIZARRAGA HARIKA ORDAZ [id number] [facility] 2022-04-10 00:00:00 2022-04-10 00:00:00 Outpatient DANO LIZARRAGA HARIKA ORDAZ [id number] [facility] 2022-03-17 09:20:00 2022-03-17 09:20:00 Outpatient SHA JUAN HARIKA ORDAZ [id number] [facility] 2022-03-09 00:00:00 2022-03-09 00:00:00 Outpatient YANETHMellissaMARILU METZ [id number] [facility] 2022-03-09 00:00:00 2022-03-09 00:00:00 Outpatient FRANCY MARILUVALENTINE ORDAZ [id number] [facility] 2022-03-08 16:30:00 2022-03-08 16:30:00 Outpatient HARIKA ORDAZ [id number] [facility] 2022-03-08 16:20:00 2022-03-08 16:20:00 [id number] 2022-03-08 15:30:00 2022-03-08 15:30:00 Outpatient MARILU CHOUDHARY [id number] [facility] 2022-02-28 09:30:00 2022-02-28 09:30:00 Outpatient JUVENAL LICONA [id number] [facility] 2022-02-08 14:50:00 2022-02-08 14:50:00 Outpatient KRISTY CASTORENA [id number] [facility] 2022-02-07 00:00:00 2022-02-07 00:00:00 Outpatient KRISTY CASTORENA [id number] [facility] 2021-10-04 00:00:00 2021-10-04 00:00:00 Letter (Out) Mireille Puri [facility] .0.114 [id number] [facility] 2021-10-03 20:00:00 2021-10-03 20:54:26 Outpatient R MONET TURNER [facility] [id number] [facility] 2021-10-03 20:00:00 2021-10-03 20:15:00 Urgent Care Monet Turner Ali Unknown, Attending [facility] 1.0.114 [id number] [facility] 2021-10-03 00:00:00 2021-10-03 00:00:00 Orders Only Doctor Unassigned, Sperry [facility] 1.840.114 350.1.13.10 4.2.7.2.686 [id number] [facility] 2021-08-19 00:00:00 2021-08-19 00:00:00 Outpatient Visit [id number] 2021-06-29 10:22:00 2021-06-29 11:26:00 Emergency X AMPARO LORA [facility] ERT [id number] [facility] 2021-06-29 10:22:00 2021-06-29 11:26:00 Emergency Amparo Lora [facility] 1.2.840.114 350.1.13.10 4.2.7.2.686 [id number] [facility] 2021-06-29 00:00:00 2021-06-29 00:00:00 Orders Only Doctor Unassigned, [place] [facility] 1.2.840.114 350.1.13.10 4.2.7.2.686 [id number] [facility] 2020-02-25 00:00:00 2020-02-25 00:00:00 Letter (Out) Doctor Unassigned, [place] [facility] 1.2.840.114 350.1.13.10 4.2.7.2.686 [id number] 2019-08-06 20:47:02 2019-08-06 22:28:00 Emergency Chica Cardenas [facility] 1.2.840.114 350.1.13.10 4.2.7.2.686 [id number] 2019-08-06 20:36:00 2019-08-06 20:36:00 Emergency X [facility] ERT [id number] [facility] 2019-06-21 12:28:00 2019-06-21 14:10:00 Emergency E CRISTIANO DOMINGUEZ [facility] 7500 [facility] Results Test Description Test Time Test Comments Results Result Co mments Source [facility] [id number] 01:25:54* Test Item Value Reference Range Interpretation Comme nts POCT Molecular FluA (test co de = 44478-2) Negative Negative POCT Molecular FluB (test co de = 79749-5) Negative Negative Lab Interpretation (test cod e = 41054-8) Normal [facility]HEMOGLOBIN [id number] 05:54:22* Test Item Value Reference Range Interpretation Comme [facility] HEMOGLOBIN A1c (test code = 59591) 5.3 % 4.2-5.6 TSH, THIRD [id number] 05:28:35* Test Item Value Reference Range Interpretation Comme [facility] TSH, THIRD GENERATION (test code = 2821) 0.751 UIU/ML 0.400-4.100 CBC W/AUTO DIFF WITH [id number] 04:48:55* Test Item Value Reference Range Interpretation [...] 0.00-0.10 ABS NUCLEATED RBCS (test code = 81836) 0.02 K/UL 0.00-0.11 HEPATITIS PANEL, [id number] 04:33:01* Test Item Value Reference Range Interpretation Comme nts HEPATITIS A IgM (test code = 26032) NON-REACTIVE NON-REACTIVE HEPATITIS B CORE IgM (test code = 4644) NON-REACTIVE NON-REACTIVE HEPATITIS B SURF AG (test code = 2739) NON-REACTIVE NON-REACTIVE HEPATITIS C ANTIBODY (test code = 4675) NON-REACTIVE NON-REACTIVE INTERPRETATION HEPATITIS A: (test code = 2552) (NOTE) Hepatitis A serology shows no evidence of acute hepatitis A. INTERPRETATION HEPATITIS B: (test code = 48039) (NOTE) Hepatitis B serology shows no evidence of acute hepatitis B andno indication of exposure to hepatitis B virus in the previous venkat eight months. INTERPRETATION HEPATITIS C: (test code = 58228) (NOTE) Hepatitis C serology shows no evidence of exposure to hepatitisC virus at this time. It can take up to 12 months after exposure tothe hepatitis C virus for antibodies to become detectable in the blood in certain patients. HEPATITIS B SURFACE [id number] 04:33:01* Test Item Value Reference Range Interpretation Comme [facility] HEPATITIS B SURFACE AB (test code = 2737) REACTIVE NON-REACTIVE A UNLESS OTH ERWISE INDICATED, ALL TESTING [facility]FOR[facility] [address] [place] [address] DAMAGE CUTTER: DOMENICA ARELLANO M.D. CLIA NUMBER [id number] [facility] [place]. [id number] COMPREHENSIVE METABOLIC [id number] 03:15:27* Test Item Value Reference Range Interpretation Comme nts GLUCOSE (test code = 2217) 88 MG/DL 70-99 BUN (test code = 2208) 9 MG/DL 6-20 CREATININE (test code = 2214) 0.65 MG/DL 0.60-1.30 eGFR (2020 CKD-EPI) (test code = 13568) 122 ML/MIN/1.73 >60 CALC BUN/CREAT (test code = 2235) 14 RATIO 6-28 SODIUM (test code = 2231) 141 MEQ/L 133-146 POTASSIUM (test code = 2228) 4.4 MEQ/L 3.5-5.4 CHLORIDE (test code = 2215) 103 MEQ/L 95-107 CARBON DIOXIDE (test code = 2206) 28 MEQ/L 19-31 CALCIUM (test code = 2209) 9.9 MG/DL 8.5-10.5 PROTEIN, TOTAL (test code = 2229) 7.3 G/DL 6.1-8.3 ALBUMIN (test code = 2201) 4.5 G/DL 3.5-5.2 CALC GLOBULIN (test code = 2240) 2.8 G/DL 1.9-3.7 CALC A/G RATIO (test code = 2234) 1.6 RATIO 1.0-2.6 BILIRUBIN, TOTAL (test code = 2207) 0.4 MG/DL See_Comment [Automated me ssage] The system which generated this result transmitted reference range: <=1.2. The reference range was not used to interpret this result as normal/abnormal. ALKALINE PHOSPHATASE (test code = 4) 71 U/L 40-112 AST (test code = 2218) 9 U/L 9-40 ALT (test code = 221) 14 U/L 5-40 LIPID [id number] 03:15:27* Test Item Value Reference Range Interpretation Comme nts CHOLESTEROL (test code = 2210) 207 MG/DL <200 H TRIGLYCERIDES (test code = 2232) 81 MG/DL <150 HDL CHOLESTEROL (test code = 2220) 45 MG/DL >39 CALC LDL CHOL (test code = 2237) 144 MG/DL <100 H NOTE: CALCULATED LDL IS BASED ON CARMEN-JACKMAN METHOD WHICHINCLUDES ADJUSTABLE TRIGLYCERIDE:VLDL CHOLESTEROL RATIO.THIS FACTOR VARIES BY MEASURED TRIGLYCERIDE AND NON-HDLCHOLESTEROL CONCENTRATIONS WITH INCREASED CALCULATED LDL SEENIN HIGHER TRIGLYCERIDE OR LOWER NON-HDL SPECIMENS. FOR MOREINFORMATION, SEE CLIENT ANNOUNCEMENT AT [email or web address] RISK RATIO LDL/HDL (test code = 2238) 3.20 RATIO <3.22 SARS-CoV-2 (COVID-19) by RT-PCR (HIGH RISK)2020-02-21 00:00:00* Test Item Value Reference Range Interpretation Comme nts SARS-CoV-2 INTERPRETATION (test code = 03127) NEGATIVE SOURCE (test code = 32475) NASOPHARYNGEAL Notes Date/Time Note Provider Source 2023-09-21 15:11:29 Chief Complaint Patient presents with Physical Patient is not fasting. Tyler Fernando CMA I [facility] 2023-06-18 10:26:12 Chief Complaint Patient presents with Knee Pain Patient complain of left knee pain starting last Sunday. [facility] 2023-03-02 15:12:03 Chief Complaint Patient presents with Foot Pain Left foot pain. RICK Chris COMPUTER BUILDER [facility] 2023-02-13 13:35:26 Chief Complaint Patient presents with Vaginal Bleeding Ninoska De Los Santos CMA I [facility] 2022-10-17 09:07:35 Formatting of this n ote is different from the original. Chief Complaint Patient presents with Consultation Right ankle injury. It happened last 10/14/22 it twisted her ankle outside at the parking lot. Seen at Urgent care. She have images at her cell phone. Maryellen Dove [facility] 2022-09-01 10:20:11 Formatting of this n ote is different from the original. Chief Complaint Patient presents with Follow-up 5 months f/u lt foot pain pt stated she having constant pain pt stated she is on her feet all day due to her job per pt Izabel Lund Medication reviewed with pt [facility]
[2023-10-23] MEDS ORDERED: NA CHLORIDE 0.9% 1,000 ML ONE (18:50)
[2023-10-23] MEDS ORDERED: ONDANSETRON 4 MG/2 ML VIAL ONE (18:50)
[2023-10-23] MEDS ORDERED: MORPHINE 4 MG/ML SYR ONE ×2 (18:57→21:25)
[2023-10-23 19:10] LABS: Absolute Basophils 0.1 K/uL (0-0.5); Absolute Eosinophils 0.1 K/uL (0-0.5); Absolute Lymphocytes (CBC) 2.5 K/uL (0.7-4.9); Absolute Monocytes 0.7 K/uL (0.1-1.3); Absolute Neutrophil 8.8 K/uL (1.8-8.0); Basophils % 0.4 % (0-1.3); Eosinophils % 1.2 % (0-4.4); Hematocrit 38.5 % (36.0-45.0); Lymphocytes % 20.4 % (15.3-44.8); MCH 28.8 pg (27.0-35.0); MCHC 33.7 g/dL (32.0-36.0); MCV 85.6 fL (80-100); MPV 8.2 fL (7.6-11.3); Monocytes % 5.5 % (3.3-12.3); Neutrophils % 72.5 % (41.7-73.7); Platelets 307 thou/uL (152-406); RBC Red Blood Cell Count 4.49 M/uL (3.86-4.86); Red Cell Distribution Width 14.3 % (12.1-15.2)
[2023-10-23 19:28] LABS: Albumin 3.4 g/dL (3.4-5.0); Albumin/Globulin Ratio 0.9 (1.1-1.8); Anion Gap 9.5 mEq/L (5.0-15.0); Bilirubin Total 0.3 mg/dL (0.2-1.0); Potassium 3.5 mEq/L (3.5-5.1); Protein, Total 7.4 g/dL (6.4-8.2)
[2023-10-23 20:00] LABS: Specific Gravity 1.017 (1.005-1.030); Urine Bacteria None Seen /HPF (<20); Urine Bilirubin NEGATIVE (Negative); Urine Blood Negative (Negative); Urine Clarity Turbid (Clear); Urine Color Light-Yellow (Yellow); Urine Culture Reflex Order NOT NEEDED; Urine Glucose NEGATIVE (Negative); Urine Ketones 1+ (Negative); Urine Microscopic Reflex YN ORDER UMIC; Urine Mucus 1+ /HPF (None Seen); Urine Nitrite NEGATIVE (Negative); Urine Protein NEGATIVE (Negative); Urine RBC <5 /HPF (None Seen); Urine Urobilinogen Normal (Normal); Urine WBC <5 /HPF (<5); Urine pH 5.5 (5.0-7.0)
[2023-10-23 20:01] LABS: Specific Gravity 1.017 (1.005-1.030)
[2023-10-23] MEDS ORDERED: KETOROLAC 30 MG/ML INJ ONE (21:25)
--- NOTE | 2023-10-23 21:42 | RAD REPORT ---
EXAMINATION: CT ABDOMEN AND PELVIS WITH CONTRAST CLINICAL INDICATION: Female, 32 years old. [facility] MAIN Abd pain;Pain IV ONLY Bed Name: 6 TECHNIQUE: CT abdomen and pelvis was performed, after the administration of IV contrast, as per [facility] protocol. Axial, sagittal and coronal reconstructions were obtained. One or more of the following dose reduction techniques were used: Automated exposure control, adjustment of the mA and k V according to patient size, and iterative reconstruction. Unless otherwise specified, incidental findings do not require dedicated imaging follow-up. COMPARISON: 01/18/2021 FINDINGS: LOWER CHEST: The visualized lung bases are clear. LIVER: Normal in size and contour. No focal lesion. BILIARY SYSTEM: Status post cholecystectomy. SPLEEN: Normal size. No focal lesion. PANCREAS: No mass, ductal dilation, or pj-pancreatic fluid. ADRENALS: Normal; no mass. KIDNEYS: Normal size and contour. No hydronephrosis. URINARY BLADDER: Unremarkable. GASTROINTESTINAL TRACT: Short segment loop of ileum in the right flank demonstrates mucosal hyperenha ncement, wall thickening/edema, fat stranding along its mesentery. Intramural fat deposition along the ascending colon may suggest sequelae of prior episodes of inflammation. No proximal dilation. No evidence of a stricture or fistula formation. No evidence of free air, significant intra-abdominal free fluid, bowel obstruction or abscess. APPENDIX: Normal appendix. LYMPH NODES: No lymphadenopathy. MUSCULOSKELETAL: No acute or suspicious osseous abnormality. ADDITIONAL FINDINGS: None. IMPRESSION: Segmental inflammatory changes of the ileum in the right flank, suggesting active inflammatory bowel disease, less likely segmental infectious enteritis.
--- NOTE | 2023-10-23 21:57 | ER ---
Nurse's Notes [facility] Name: Kyra Dave Age: 32 yrs Sex: Female : 1990 Arrival Date: 10/23/2023 Time: 17:51 Bed 6 Private MD: Diagnosis: Ulcerative colitis, unspecified, without complications Presentation: 10/22 18:04 Chief complaint: Patient states: right sided abd pain , nausea, diarrhea since 0900 iw today. Coronavirus screen: Client presents with at least one sign or symptom that may indicate coronavirus-19. Ebola Screen: No symptoms or risks identified at this time. Initial Sepsis Screen: Does the patient meet any 2 criteria? No. Patient's initial sepsis screen is negative. Does the patient have a suspected source of infection? No. Patient's initial sepsis screen is negative. Risk Assessment: Do you want to hurt yourself or someone else? Patient reports no desire to harm self or others. Onset of symptoms was October 23, 2023. 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 - Infectious Disease History:: Denies. - Social history:: Smoking status: Patient denies any tobacco usage or history of. Screenin:54 [facility] ED Fall Risk Assessment (Adult) History of falling in the last 3 months, rs5 including since admission No falls in past 3 months (0 pts) Confusion or Disorientation No (0 pts) Intoxicated or Sedated No (0 pts) Impaired Gait No (0 pts) Mobility Assist Device Used No (0 pt) Altered Elimination No (0 pt) Score/Fall Risk Level 0 - 2 = Low Risk Oriented to surroundings, Maintained a safe environment. Abuse screen: Denies threats or abuse. Nutritional screening: No deficits noted. Tuberculosis screening: No symptoms or risk factors identified. Assessment: 18:53 General: Appears in no apparent distress. uncomfortable, Behavior is calm, cooperative. rs5 Pain: Complains of pain in abdomen Pain currently is 8 out of 10 on a pain scale. Quality of pain is described as aching, Is continuous. Neuro: Level of Consciousness is awake, alert, obeys commands, Oriented to person, place, time, situation. Cardiovascular: Patient's skin is warm and dry. Respiratory: Airway is patent Respiratory effort is even, unlabored, Respiratory pattern is regular, symmetrical. GI: Abdomen is round non-distended, Bowel sounds present X 4 quads. Abd is soft and non tender X 4 quads. Reports diarrhea, nausea. : No signs and/or symptoms were reported regarding the genitourinary system. EENT: No signs and/or symptoms were reported regarding the EENT system. Derm: Skin is intact, Skin is pink, warm \T\ dry. Musculoskeletal: Range of motion: intact in all extremities. 19:18 Reassessment: Patient states feeling better. dd2 Vital Signs: 18:04 BP 88 / 71; Pulse 105; Resp 16; Temp 97.3; Pulse Ox 100% on R/A; Weight 117.03 kg; iw Height 5 ft. 7 in. ; Pain 10/10; 18:17 BP 116 / 71; Pulse 90; Resp 16; Pulse Ox 98% on R/A; iw 18:25 BP 127 / 71; Pulse 86; dr5 19:15 BP 114 / 72; Pulse 77; Resp 16; Pulse Ox 96% ; dd2 21:37 BP 124 / 76; Pulse 90; Resp 16; Pulse Ox 95% ; dd2 18:04 Body Mass Index 40.41 (117.03 kg, 170.18 cm) iw 18:04 Pain Scale: Adult iw 18:25 Pt is resting comfortably. VS normal during my exam with patient. No pain when sitting dr5 without movement. ED Course: 17:54 Patient arrived in ED. mg5 17:59 Aleida Diaz FNP-C is PHCP. kb 17:59 Zenon Sin MD is Attending Physician. kb 18:04 PHCP role handed off by Aleida Diaz FNP-C dr5 18:04 Tripp Erickson FNP-C is PHCP. dr5 18:05 Triage completed. iw 18:54 Patient has correct armband on for positive identification. Placed in gown. Bed in low rs5 position. Call light in reach. Side rails up X2. 18:54 No provider procedures requiring assistance completed. Inserted saline lock: 20 gauge rs5 in right antecubital area, using aseptic technique. Blood collected. Flushed with 10 mL NS. 19:05 TRUNG NASH RN is Primary Nurse. dd2 19:18 Provided Education on: CALL LIGHT, LABS TIMES, AND PROCEDURES . Report received from dd2 report received from CALIN Hoover. Client placed on continuous cardiac and pulse oximetry monitoring. NIBP monitoring applied. Door closed. Lights dimmed. Verbal reassurance given. PILLOW AND BLANKET OFFERED. 20:54 CT Abd/Pelvis - IV Contrast Only In Process Unspecified. EDMS 22:06 IV discontinued, intact, bleeding controlled, No redness/swelling at site. Pressure dd2 dressing applied. 22:07 Arm band placed on left wrist. dd2 Administered Medications: 19:04 Drug: morphine IVP or IV 4 mg IVP once over 4 mins Route: IVP; Infused Over: 4 mins; rs5 Site: right antecubital; 19:19 Follow up: Response: No adverse reaction dd2 19:05 Drug: NS 0.9% IV 1000 ml IV at 1 bolus Per protocol; 1000 mL bolus Route: IV; Rate: 1 rs5 bolus; Site: right antecubital; 19:20 Follow up: Response: No adverse reaction dd2 20:10 Follow up: IV Status: Completed infusion; IV Intake: 1000ml dd2 19:05 Drug: Ondansetron IVP 4 mg IVP once; over 2 minutes Route: IVP; Site: right antecubital;rs5 19:20 Follow up: Response: No adverse reaction dd2 21:30 Drug: morphine IVP or IV 4 mg IVP once over 4 mins Route: IVP; Infused Over: 4 mins; dd2 Site: right antecubital; 21:45 Follow up: Response: No adverse reaction dd2 21:30 Drug: Ketorolac IVP 15 mg IVP once Route: IVP; Site: right antecubital; dd2 21:45 Follow up: Response: No adverse reaction dd2 Medication: 18:55 VIS not applicable for this client. rs5 Intake: 20:10 IV: 1000ml; Total: 1000ml. dd2 Outcome: 21:57 Discharge ordered by . kimo 22:06 Discharged to home ambulatory, dd2 22:06 Condition: stable 22:06 Discharge instructions given to patient, Instructed on discharge instructions, follow up and referral plans. medication usage, Demonstrated understanding of instructions, follow-up care, medications, Prescriptions given X 3, 22:07 Patient left the ED. dd2 Signatures: Dispatcher [employer] EDMS Aleida Diaz, DAYANA-C REED FIXER-Ckb Ana Rosa Lund RN RN iw Kiko Underwood RN RN rs5 Sumaya Feliciano 5 TRUNG NASH RN RN dd2 Tripp Erickson, DAYANA-Mohan RIDDLEP-Cdr5 Corrections: (The following items were deleted from the chart) 18:06 18:04 Resp 16bpm; Pulse Ox 100% RA; Temp 97.3F; 117.03 kg; Height 5 ft. 7 in.; BMI: iw 40.4; Pain 11/14, Adult; iw
--- NOTE | 2023-10-23 21:58 | EDPHYS ---
Physician Documentation [facility] Name: Kyra Dave Age: 32 yrs Sex: Female : 1990 Arrival Date: 10/23/2023 Time: 17:51 Bed 6 Private MD: ED Physician Zenon Sin HPI: 10/22 18:24 This 32 yrs old Female presents to ER via Ambulatory with complaints of dr5 Abdominal Pain. 18:24 The patient presents with abdominal pain. Onset: The symptoms/episode began/occurred dr5 this morning. The symptoms radiate to the right flank. Associated signs and symptoms:. Pt reports intermittent pain that starts in right lower quadrant and radiates to right flank. Pt reports the pain waxes and wanes. Pt has had nausea with no episodes of vomiting. + diarrhea since this morning. 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 - Infectious Disease History:: Denies. - Social history:: Smoking status: Patient denies any tobacco usage or history of. ROS: 18:25 Constitutional: as per hpi dr5 Exam: 18:25 Constitutional: This is a well developed, well nourished patient who is awake, alert, dr5 and in no acute distress. Cardiovascular: Regular rate and rhythm with a normal S1 and S2. Normal PMI, no JVD. No pulse deficits. Respiratory: Lungs have equal breath sounds bilaterally, clear to auscultation. No rales, rhonchi or wheezes noted. No increased work of breathing, no retractions or nasal flaring. Abdomen/GI: Soft, non-distended. Pt has tenderness to palpation to RLQ with palpation. Vital Signs: 18:04 BP 88 / 71; Pulse 105; Resp 16; Temp 97.3; Pulse Ox 100% on R/A; Weight 117.03 kg; iw Height 5 ft. 7 in. ; Pain 10/10; 18:17 BP 116 / 71; Pulse 90; Resp 16; Pulse Ox 98% on R/A; iw 18:25 BP 127 / 71; Pulse 86; dr5 19:15 BP 114 / 72; Pulse 77; Resp 16; Pulse Ox 96% ; dd2 21:37 BP 124 / 76; Pulse 90; Resp 16; Pulse Ox 95% ; dd2 18:04 Body Mass Index 40.41 (117.03 kg, 170.18 cm) iw 18:04 Pain Scale: Adult iw 18:25 Pt is resting comfortably. VS normal during my exam with patient. No pain when sitting dr5 without movement. MDM: 17:59 Patient medically screened. kb 19:51 Differential diagnosis: appendicitis, bowel obstruction, diverticulitis, Mesenteric dr5 ischemia or infarction. Data reviewed: vital signs, nurses notes, lab test result(s). Counseling: I had a detailed discussion with the patient and/or guardian regarding the historical points, exam findings, and any diagnostic results supporting the discharge/admit diagnosis, the presence of at least one elevated blood pressure reading (>120/80) during this emergency department visit, lab results, to return to the emergency department if symptoms worsen or persist or if there are any questions or concerns that arise at home. 21:37 ED course: Pt returned from CT scan complaining of returning abdominal pain to right dr5 lower quadrant. Morphine / Toradol given. 22:08 Consideration of Admission/Observation Escalation of care including dr5 admission/observation considered. Considered admission if CTabnormality or abdominal pain not improving.. Historians other than the Patient: Spouse/Significant Other: Spouse. Medication response: morphine relieved the patient's pain. Symptoms have resolved. Response to treatment: the patient's symptoms have resolved after treatment. Admission orders: after a detailed discussion of the patient's condition and case, the admit orders are written by me. ED course: Abdominal pain has resolved. Patient is feeling better. Given Augmentin to prevent diverticulitis formation. Started on PPI. Zofran given PRN for nausea. Recommended diet / exercise and choosing healthy foods and avoiding greasy, spicy, fatty foods.. 10/22 18:23 Order name: CBC with Diff; Complete Time: 19:20 dr5 10/22 18:23 Order name: CMP; Complete Time: 19:34 dr5 10/22 18:23 Order name: Lipase; Complete Time: 19:[address] [facility] 10/22 18:23 Order name: Test, Urine; Complete Time: 20:08 dr5 10/22 18:23 Order name: Urinalysis w/ reflexes; Complete Time: 20:08 dr5 10/22 20:09 Interpretation: UKET 1+. dr5 10/22 18:23 Order name: CT Abd/Pelvis - IV Contrast Only; Complete Time: 21:42 dr5 10/22 18:23 Order name: IV Saline Lock; Complete Time: 18:49 dr5 10/22 18:23 Order name: Labs collected and sent; Complete Time: 18:49 dr5 Administered Medications: 19:04 Drug: morphine IVP or IV 4 mg IVP once over 4 mins Route: IVP; Infused Over: 4 mins; rs5 Site: right antecubital; 19:19 Follow up: Response: No adverse reaction dd2 19:05 Drug: NS 0.9% IV 1000 ml IV at 1 bolus Per protocol; 1000 mL bolus Route: IV; Rate: 1 rs5 bolus; Site: right antecubital; 19:20 Follow up: Response: No adverse reaction dd2 20:10 Follow up: IV Status: Completed infusion; IV Intake: 1000ml dd2 19:05 Drug: Ondansetron IVP 4 mg IVP once; over 2 minutes Route: IVP; Site: right antecubital;rs5 19:20 Follow up: Response: No adverse reaction dd2 21:30 Drug: morphine IVP or IV 4 mg IVP once over 4 mins Route: IVP; Infused Over: 4 mins; dd2 Site: right antecubital; 21:45 Follow up: Response: No adverse reaction dd2 21:30 Drug: Ketorolac IVP 15 mg IVP once Route: IVP; Site: right antecubital; dd2 21:45 Follow up: Response: No adverse reaction dd2 Disposition Summary: 10/23/23 21:57 Discharge Ordered Notes: Location: Home dr5 Condition: Stable dr5 Diagnosis - Ulcerative colitis, unspecified, without complications dr5 Followup: dr5 - With: Emergency Department - When: As needed - Reason: Recheck today's complaints, Continuance of care Followup: dr5 - With: Private Physician - When: 2 - 3 days - Reason: Recheck today's complaints, Continuance of care, Re-evaluation by your physician Discharge Instructions: - Discharge Summary Sheet dr5 - Colitis dr5 Forms: - Medication Reconciliation Form dr5 - Antibiotic Education dr5 - Patient Portal Instructions dr5 - Leadership Thank You Letter dr5 Prescriptions: - Augmentin 875-125 mg Oral Tablet - take 1 tablet ORAL route every 12 hours for 10 days; 20 tablet; Refills: 0, dr5 Product Selection Permitted - Protonix 40 mg Oral Tablet - take 1 tablet ORAL route once daily; 30 tablet; Refills: 0, Product Selection dr5 Permitted - Zofran 4 mg Oral Tablet - take 1 tablet ORAL route every 12 hours As needed; 20 tablet; Refills: 0, dr5 Product Selection Permitted Signatures: Dispatcher [employer] EDRI Aleida Diaz, MANUFACTURING ENGINEERING PROFESSOR-C MANUFACTURING ENGINEERING PROFESSOR-Ckb Ana Rosa Lund RN RN iw Kiko Underwood RN RN rs5 TRUNG NASH RN RN dd2 Tripp Erickson, MANUFACTURING ENGINEERING PROFESSOR-C MANUFACTURING ENGINEERING PROFESSOR-Cdr5 Corrections: (The following items were deleted from the chart) 19:50 18:25 Constitutional: This is a well developed, well nourished patient who is awake, dr5 alert, and in no acute distress. Cardiovascular: Regular rate and rhythm with a normal S1 and S2. Normal PMI, no JVD. No pulse deficits. Respiratory: Lungs have equal breath sounds bilaterally, clear to auscultation. No rales, rhonchi or wheezes noted. No increased work of breathing, no retractions or nasal flaring. Abdomen/GI: Soft, non-tender, non-distended. Pt has tenderness to palpation to RLQ with palpation. dr5
[2023-10-23 22:27] VITALS: TEMP 97.3
[2023-10-23 22:38] VITALS: BP 124/76; O2SAT 95
== END 2023-10-23 22:07 | disposition home or self-care (01) ==
LOC: ER 17:51
DX: K51.90 Ulcerative colitis, unspecified, without complications (principal)
CPT/HCPCS: 85025; 81001; 36415; 81025; 83690; 80053; 74177; Q9967; J2405; J7030; 96361; 96374; 96375; 99284